=== PATIENT | female | born 1965 | race Caucasian/White ===

== ENCOUNTER → 2016-09-21 | Outpatient (CLI) | payer BC ==
[~2016-09-21] MED LIST: ACET-1256 PO; CLR10 PO; FURO-85 PO; LEVO125T4 PO; LEVO137T3 PO; MISCCAP80 PO; RANI150T2 PO
--- NOTE | 2016-09-21 14:23 | MAMMOGRAPHY REPORT ---
BILATERAL DIGITAL SCREENING MAMMOGRAM TOMOSYNTHESIS WITH CAD: 09/21/2016 CLINICAL HISTORY: Routine screening. Patient has no complaints. TECHNIQUE: Breast tomosynthesis in addition to standard 2D mammography was performed. Current study was also evaluated with a Computer Aided Detection (CAD) system. COMPARISON: Comparison is made to exams dated: 09/18/2015 mammogram, 09/10/2013 mammogram, 09/11/2014 ma mmogram, 06/08/2012 mammogram, 05/31/2011 mammogram, and 05/25/2010 mammogram - [facility] enter. BREAST COMPOSITION: There are scattered areas of fibroglandular density in both breasts. FINDINGS: No suspicious masses, calcifications, or areas of architectural distortion are noted in e ither breast. There has been no significant interval change compared to prior exams. There are stab le post surgical changes from bilateral reduction mammoplasty. Bilateral benign-appearing calcifica tions are not significantly changed, including grouped calcifications in the left upper outer quadra nt which are stable dating back to at least the 2011 exam. IMPRESSION: ACR BI-RADS CATEGORY 2: BENIGN There is no mammographic evidence of malignancy. A 1 year screening mammogram is recommended. The p atient will receive written notification of the results. Approximately 10% of breast cancers are not detected with mammography. A negative mammographic repor t should not delay biopsy if a clinically suggestive mass is present. Virgen Colby M.D. /:09/21/2016 09:54:02 Stabber: Jon SETH(Jessica)(Mariana), [facility] letter sent: Normal 1/2 BI-RADS Code: ACR BI-RADS Category 2: Benign
== END | disposition home or self-care (01) ==
LOC: C.MAMM 07:03
PROVIDERS: ATTEND Obstetrics & Gynecology
DX: Z12.31 Encounter for screening mammogram for malignant neoplasm of breast (principal)

== ENCOUNTER → 2016-10-12 | Outpatient (CLI) | payer BC ==
[2016-10-12 09:31] LABS: HEMATOCRIT 41.6 % (37-47); MEAN CELL VOLUME 85.1 fL (80-100); MEAN CORPUSCULAR HEMOGLOBIN 26.8 pg (25-34); MEAN CORPUSCULAR HGB CONC 31.5 g/dl (32-36); MEAN PLATELET VOLUME 9.3 fL (7.4-10.4); PLATELET COUNT 273 K/uL (130-400); RED BLOOD COUNT 4.89 M/uL (4.2-5.4)
[2016-10-12 09:55] LABS: ALB/GLOB RATIO 0.8 (0.9-2); ALKALINE PHOSPHATASE 99 U/L (45-117); ALT/SGPT 37 U/L (12-78); AST/SGOT 15 U/L (15-37); BLOOD UREA NITROGEN 27 mg/dl (7-18); BUN/CREATININE RATIO 19.2 (10-20); CALCIUM 8.1 mg/dl (8.5-10.1); CARBON DIOXIDE 27 mmol/L (21-32); CHLORIDE 106 mmol/L (98-107); CHOLESTEROL 192 mg/dl (0-200); CHOLESTEROL/HDL RATIO 3.9; GLUCOSE 86 mg/dl (70-99); HDL CHOLESTEROL 49 mg/dl; LDL CHOLESTEROL CALCULATED 115 mg/dl; POTASSIUM 4.4 mmol/L (3.5-5.1); SODIUM 143 mmol/L (136-145); TRIGLYCERIDES 140 mg/dl (0-150); VERY LOW DENSITY LIPOPROT CALC 28 mg/dl
[2016-10-12 09:56] LABS: URINE PROTIEN/CREAT RATIO 0.1 (0-0.2); URINE TOTAL PROTEIN 15.1 mg/dl (0-11.9)
[2016-10-12 10:16] LABS: URINE APPEARANCE CLOUDY (CLEAR); URINE BILIRUBIN NEG (NEG); URINE COLOR YELLOW; URINE EPITHELIAL CELL AUTO >30 /lpf (0-5); URINE NITRITE NEG (NEG); URINE PH 5.5 (4.5-7.5); UROBILINOGEN NEG (NEG)
[2016-10-12 10:26] LABS: MANUAL MICROSCOPIC REQUIRED? NO; REVIEW REQ? NO
== END | disposition home or self-care (01) ==
LOC: C.LAB1850 07:11
PROVIDERS: ATTEND Internal Medicine Nephrology
DX: C73 Malignant neoplasm of thyroid gland (principal); E89.0 Postprocedural hypothyroidism; I12.9 Hypertensive chronic kidney disease with stage 1 through stage 4 chronic kidney disease, or unspecified chronic kidney disease; N18.3 Chronic kidney disease, stage 3 (moderate); E55.9 Vitamin D deficiency, unspecified; R31.29 Other microscopic hematuria; E78.5 Hyperlipidemia, unspecified

== ENCOUNTER 2016-10-22 11:48 | Emergency (ER) | payer BC ==
[~2016-10-22] VITALS: Ht 157.5 cm; Wt 124.9 kg
[~2016-10-22 11:48] MED LIST changes: -LEVO125T4 PO; -RANI150T2 PO
[2016-10-22 11:51] VITALS: TEMP 36.4; Ht 157.5 cm; Wt 124.9 kg
[2016-10-22] MEDS ORDERED: RANI150T2 PO (11:59)
[2016-10-22] MEDS ORDERED: LEVO125T4 PO (11:59)
--- NOTE | 2016-10-22 12:44 | EMERGENCY ROOM VISIT NOTE ---
History Report prepared by Naomi: Moises Miner Under the Supervision of: Dr. Masoud Mercedes M.D. First contact with patient: 12:33 Chief Complaint: LEG PAIN,LEG INJURY Stated Complaint: LEFT LEG PAIN History of Present Illness The patient is a 51 year old female who presents to the Emergency Room with complaints of persistent left leg pain for the past ten days. The pain is localized to her upper inner left thigh. The pain worsened yesterday to the point that the patient is having difficulty walking and ambulating secondary to pain. Her right leg is asymptomatic. The patient denies any fevers, chills, lightheadedness, dizziness, chest pain, shortness of breath, weakness, or numbness. The patient has a history of bilateral lower extremity lymphedema. She denies any history of blood clots. She is not a smoker. She is not on control or other hormonal therapies. The patient has a history of kidney and thyroid cancer. She is s/p left nephrectomy and thyroidectomy. She now takes Levothyroxine. She denies any history of diabetes. Source of History: patient Onset: ten days Position: leg (left) Timing: other (persistent) Modifying Factors (Worsening): other (standing or walking) Associated Symptoms: No SOB, No chest pain, No chills, No fevers, No numbness, No weakness Review of Systems See HPI for pertinent positives & negatives. A total of 10 systems reviewed and were otherwise negative.+ Past Medical & Surgical Medical Problems: (1) Diverticulitis (2) nephrectomy (3) renal jun carcinoma Old medical records were reviewed. Nurse's notes were reviewed and I agree with. Family History Cancer Gallbladder disease Hypertension Lung disease Social History Smoking Status: Never Smoker Alcohol Use: none Drug Use: none Marital Status: single Housing Status: lives with family Occupation Status: employed Current/Historical Medications Scheduled Levothyroxine Sodium (Levothyroxine Sodium), 125 MCG PO QAM Probiotic Product (Probiotic), 1 CAP PO DAILY Ranitidine HCl (Ranitidine HCl), 150 MG PO BID Scheduled PRN Acetaminophen (Tylenol), 1,000 MG PO Loratadine (Claritin), 10 MG PO DAILY PRN for ALLERGIC REACTION Allergies Coded Allergies: Metronidazole (Unverified Allergy, Unknown, vomiting, 10/22/16) Physical Exam Vital Signs Date Time Temp Pulse Resp B/P Pulse Ox O2 Delivery O2 Flow Rate FiO2 10/22/16 15:47 83 18 134/97 100 10/22/16 13:52 78 16 129/78 97 Room Air 10/22/16 11:51 36.4 97 20 124/78 95 Room Air Physical Exam General: Non ill-appearing female in no acute distress, breathing comfortably on room air. Normal speech HEENT: Normal cephalic atraumatic. Pupils are equal round and reactive to light. Extraocular movements are intact. Oropharynx is pink with moist mucous membranes. No swelling of the mouth lips or tongue. Neck: Supple with a midline trachea. No meningeal signs or stiffness, no JVD or bruits. No Stridor. Chest: Clear to auscultation bilaterally. No wheezes or rhonchi. No increased work of breathing. Heart: regular rate and rhythm. Abdomen: Soft nontender, nondistended without rebound guarding or rigidity. Extremities: Trace bilateral edema, normal distal pulses, minimal calf tenderness bilaterally. He has mild tenderness left medial proximal thigh. No redness or warmth. Full range of motion. No lower extremity neurovascular compromise Spine/Back. Non tender to palpation. No CVA tenderness Skin: Good turgor without rashes. Neurologic exam: Cranial nerves two through 12 are intact. Motor and sensation are intact and symmetrical throughout. Medical Decision & Procedures ER Provider Diagnostic Interpretation: US radiology results as stated below per my review and radiologist interpretation: LEFT LOWER EXTREMITY VENOUS DOPPLER CLINICAL HISTORY: Leg swelling/pain COMPARISON STUDY: Bilateral lower extremity venous Doppler March 03 2015 TECHNIQUE: Sonography of the deep venous system of the left lower extremity was performed. Compression and augmentation were evaluated. FINDINGS: The left common femoral, superficial femoral and popliteal veins were compressible. Augmentation was normal. Flow was shown within the deep calf vessels. IMPRESSION: No evidence of deep venous thrombus within the left lower extremity. Electronically signed by: Iban Daigle M.D. 10/22/2016 1:43 PM Dictated Date/Time: 10/22/2016 1:40 PM Laboratory Results 10/22/16 13:17 Red Blood Count 4.76, Mean Corpuscular Volume 83.4, Mean Corpuscular Hemoglobin 27.1, Mean Corpuscular Hemoglobin Concent 32.5, Mean Platelet Volume 9.5, Neutrophils (%) (Auto) 76.5, Lymphocytes (%) (Auto) 14.9, Monocytes (%) (Auto) 6.7, Eosinophils (%) (Auto) 1.2, Basophils (%) (Auto) 0.1, Neutrophils # (Auto) 5.55, Lymphocytes # (Auto) 1.08, Monocytes # (Auto) 0.49, Eosinophils # (Auto) 0.09, Basophils # (Auto) 0.01 10/22/16 13:17 Test 10/22/16 13:17 White Blood Count 7.26 K/uL (4.8-10.8) Red Blood Count 4.76 M/uL (4.2-5.4) Hemoglobin 12.9 g/dL (12.0-16.0) Hematocrit 39.7 % (37-47) Mean Corpuscular Volume 83.4 fL (80-100) Mean Corpuscular Hemoglobin 27.1 pg (25-34) Mean Corpuscular Hemoglobin Concent 32.5 g/dl (32-36) Platelet Count 215 K/uL (130-400) Mean Platelet Volume 9.5 fL (7.4-10.4) Neutrophils (%) (Auto) 76.5 % Lymphocytes (%) (Auto) 14.9 % Monocytes (%) (Auto) 6.7 % Eosinophils (%) (Auto) 1.2 % Basophils (%) (Auto) 0.1 % Neutrophils # (Auto) 5.55 K/uL (1.4-6.5) Lymphocytes # (Auto) 1.08 K/uL (1.2-3.4) Monocytes # (Auto) 0.49 K/uL (0.11-0.59) Eosinophils # (Auto) 0.09 K/uL (0-0.5) Basophils # (Auto) 0.01 K/uL (0-0.2) RDW Standard Deviation 49.7 fL (36.4-46.3) RDW Coefficient of Variation 16.4 % (11.5-14.5) Immature Granulocyte % (Auto) 0.6 % Immature Granulocyte # (Auto) 0.04 K/uL (0.00-0.02) Prothrombin Time 10.5 SECONDS (9.0-12.0) Prothromb Time International Ratio 1.0 (0.9-1.1) Activated Partial Thromboplast Time 28.3 SECONDS (21.0-31.0) Partial Thromboplastin Ratio 1.1 Anion Gap 11.0 mmol/L (3-11) Est Creatinine Clear Calc Drug Dose 70.1 ml/min Estimated GFR () 60.6 Estimated GFR (Non- 52.3 BUN/Creatinine Ratio 17.3 (10-20) Calcium Level 8.0 mg/dl (8.5-10.1) Laboratory studies as stated above per my review. ED Course 1248: Past medical records reviewed. The patient was evaluated in room C12b, and a complete history and physical examination were performed. 1510: Reassessed the patient. She is doing better. She verbalized understanding and agreement of the treatment plan. The patient is ready for discharge. Medical Decision Differential diagnosis includes DVT, musculoskeletal, infection, electrolyte or metabolic abnormality. This patient comes in as described above. she's been having pain in her left leg .she recalls no injury. she has normal distal pulse exam and no as evidence of arterial compromise. she has a normal neurologic exam and no evidence of neurologic compromise or compartment syndrome. IV access established blood testing was obtained as well as ultrasound. she's had no evidence of DVT or hematoma. she's had no significant electrolyte or metabolic abnormality. she iha nothing to suggest significant anemia or sepsis. I think this is more likely musculoskeletal. She is going to use Tylenol for pain as she only has one kidney but do not exceed the [id number] recommended dosages. Return if: increasing pain, numbness or weakness, worsening of symptoms, any new problems concerns. She was happy the plan and was discharged to home. Follow- up with her doctor this week for recheck. Impression Primary Impression: Leg pain, left Scribe Attestation The scribe's documentation has been prepared under my direction and personally reviewed by me in its entirety. I confirm that the note above accurately reflects all work, treatment, procedures, and medical decision making performed by me. Departure Information Dispostion Home / Self-Care Referrals RV. Gonzales MD (PCP) Forms HOME CARE DOCUMENTATION FORM, IMPORTANT VISIT INFORMATION Patient Instructions My [facility] Additional Instructions Rest. Drink plenty of fluids. May use acetaminophen/Tylenol a maximum of 650 mg every 6 hours. Return if: Increasing pain, worsening of symptoms, numbness or weakness, any new problems or concerns. Follow up with your doctor Monday or Monday for recheck if not better.
[2016-10-22 13:28] LABS: BASO % 0.1 %; BASO ABS # 0.01 K/uL (0-0.2); COMPLETE YES; EOS % 1.2 %; HEMATOCRIT 39.7 % (37-47); IG% 0.6 %; LYMPH % 14.9 %; LYMPH ABS # 1.08 K/uL (1.2-3.4); MEAN CELL VOLUME 83.4 fL (80-100); MEAN CORPUSCULAR HEMOGLOBIN 27.1 pg (25-34); MEAN CORPUSCULAR HGB CONC 32.5 g/dl (32-36); MEAN PLATELET VOLUME 9.5 fL (7.4-10.4); MONO % 6.7 %; NEUT % 76.5 %; PLATELET COUNT 215 K/uL (130-400); RED BLOOD COUNT 4.76 M/uL (4.2-5.4); WHITE BLOOD COUNT 7.26 K/uL (4.8-10.8)
[2016-10-22 13:44] LABS: PARTIAL THROMBOPLASTIN RATIO 1.1; PROTHROMBIN TIME (PATIENT) 10.5 SECONDS (9.0-12.0)
--- NOTE | 2016-10-22 13:44 | DIAGNOSTIC IMAGING REPORT ---
LEFT LOWER EXTREMITY VENOUS DOPPLER CLINICAL HISTORY: Leg swelling/pain COMPARISON STUDY: Bilateral lower extremity venous Doppler March 03 2015 TECHNIQUE: Sonography of the deep venous system of the left lower extremity was performed. Compression and augmentation were evaluated. FINDINGS: The left common femoral, superficial femoral and popliteal veins were compressible. Augmentation was normal. Flow was shown within the deep calf vessels. IMPRESSION: No evidence of deep venous thrombus within the left lower extremity. Electronically signed by: Iban Daigle M.D. 10/22/2016 1:43 PM Dictated Date/Time: 10/22/2016 1:40 PM
[2016-10-22 13:45] LABS: BUN/CREATININE RATIO 17.3 (10-20); CREATININE 1.2 mg/dl (0.60-1.20); POTASSIUM 3.7 mmol/L (3.5-5.1)
[2016-10-22 15:47] VITALS: BP 134/97; PULSE 83; O2SAT 100
== END 2016-10-22 15:49 | disposition home or self-care (01) ==
LOC: C.EDB 11:49 → C.EDC 15:49
DX: M79.605 Pain in left leg (principal); Z85.528 Personal history of other malignant neoplasm of kidney; Z85.850 Personal history of malignant neoplasm of thyroid; Z90.5 Acquired absence of kidney; E89.0 Postprocedural hypothyroidism; Z79.899 Other long term (current) drug therapy

== ENCOUNTER → 2016-11-10 | Outpatient (CLI) | payer BC ==
[~2016-11-10] MED LIST changes: -FURO-85 PO; +LEVO125T4 PO; -LEVO137T3 PO; +RANI150T2 PO
--- NOTE | 2016-11-10 10:48 | DIAGNOSTIC IMAGING REPORT ---
LEFT HIP UNILATERAL 2 VIEWS CLINICAL HISTORY: M79.605 Left leg [id number] pain COMPARISON: None. DISCUSSION: Moderate to rather significant degenerative narrowing left hip joint space. No evidence for acetabular protrusion. No evidence for fracture. Incidental note is made of what appears to be a large calcified uterine fibroid midline pelvis. There is no evidence for soft tissue swelling. IMPRESSION: Moderate to significant degenerative change left hip. No acute bony abnormality. Probable calcified uterine fibroid central soft tissue pelvis Electronically signed by: Antony Tripp M.D. 11/10/2016 10:46 AM Dictated Date/Time: 11/10/2016 10:46 AM
== END | disposition home or self-care (01) ==
LOC: C.RAD1850 10:25
PROVIDERS: ATTEND Internal Medicine
DX: M79.605 Pain in left leg (principal)

== ENCOUNTER → 2017-03-23 | Outpatient (CLI) | payer BC ==
[2017-03-23 09:30] LABS: MANUAL MICROSCOPIC REQUIRED? YES; URINE APPEARANCE SL CLOUDY (CLEAR); URINE BILIRUBIN NEG (NEG); URINE COLOR YELLOW; URINE NITRITE NEG (NEG); URINE PH 5.5 (4.5-7.5); URINE SPECIFIC GRAVITY <= 1.005 (1.000-1.030); UROBILINOGEN NEG (NEG)
[2017-03-23 09:31] LABS: REVIEW REQ? NO
[2017-03-23 09:32] LABS: HEMATOCRIT 40.7 % (37-47); MEAN CELL VOLUME 84.3 fL (80-100); MEAN CORPUSCULAR HEMOGLOBIN 26.7 pg (25-34); MEAN CORPUSCULAR HGB CONC 31.7 g/dl (32-36); MEAN PLATELET VOLUME 8.9 fL (7.4-10.4); PLATELET COUNT 261 K/uL (130-400); RED BLOOD COUNT 4.83 M/uL (4.2-5.4); WHITE BLOOD COUNT 6.28 K/uL (4.8-10.8)
[2017-03-23 10:00] LABS: URINE TOTAL PROTEIN < 5.0 mg/dl (0-11.9)
[2017-03-23 10:02] LABS: BLOOD UREA NITROGEN 21 mg/dl (7-18); BUN/CREATININE RATIO 14.7 (10-20); CALCIUM 8.2 mg/dl (8.5-10.1); CARBON DIOXIDE 27 mmol/L (21-32); CHLORIDE 106 mmol/L (98-107); GLUCOSE 93 mg/dl (70-99); POTASSIUM 3.7 mmol/L (3.5-5.1); SODIUM 141 mmol/L (136-145)
[2017-03-23 10:06] LABS: PHOSPHORUS 3.4 mg/dl (2.5-4.9)
[2017-03-23 10:10] LABS: URINE RBC 0-4 /hpf (0-4)
[2017-03-23 10:11] LABS: URINE BACTERIA 1+ (NEG)
[2017-03-24 14:58] LABS: THYROGLOBULIN 1.3 NG/ML (2.8-40.9)
== END | disposition home or self-care (01) ==
LOC: C.LAB1850 08:38
PROVIDERS: ATTEND Internal Medicine Nephrology
DX: C73 Malignant neoplasm of thyroid gland (principal); E89.0 Postprocedural hypothyroidism; I10 Essential (primary) hypertension; N18.3 Chronic kidney disease, stage 3 (moderate); E55.9 Vitamin D deficiency, unspecified

== ENCOUNTER → 2017-07-18 | Outpatient (CLI) | payer BC ==
[~2017-07-18] MED LIST changes: +GADAVIST IV PRN; -LEVO125T4 PO; +LEVO125T5 PO
--- NOTE | 2017-07-18 08:01 | DIAGNOSTIC IMAGING REPORT ---
CHEST 2 VIEWS ROUTINE HISTORY: Renal cell carcinoma. Follow-up. COMPARISON: Chest 06/03/2016. FINDINGS: Small hiatus hernia is again noted. No pneumothorax. No pleural effusions. The heart is stable in size. The lungs are clear. IMPRESSION: No significant change compared to the prior study. No acute process. Electronically signed by: Holland Veras M.D. 07/18/2017 8:00 AM Dictated Date/Time: 07/18/2017 7:58 AM
--- NOTE | 2017-07-18 08:18 | DIAGNOSTIC IMAGING REPORT ---
MRI KIDNEYS WITHOUT AND WITH CONTRAST CLINICAL HISTORY: C64.9 RENAL CELL CARCINOMA. HISTORY OF LEFT NEPHRECTOMY. TECHNIQUE: Imaging was performed prior to and following IV contrast injection. (12 cc intravenous Gadavist goes ( COMPARISON STUDY: CT scan dated 04/04/2014 FINDINGS: Imaging was performed in the axial and coronal planes. There are no suspicious areas of marrow replacement. The left kidney is surgically absent. There is a 38 mm right renal cyst. Also evident is a 10 mm right renal cyst. No solid right renal lesions are visualized. There is a 15 mm T2 bright mass within the right lobe of the liver. This is only visualized on several sequences as this area is not included on axial images. This likely represents a hepatic hemangioma. This lesion remains unchanged in size from prior CT scan performed in June 2013 There is an incompletely characterized 1 cm lesion within the spleen. The spleen is mildly enlarged measuring 13 cm. No adrenal masses are visualized. There is no ductal dilatation. The gallbladder appears normal as visualized. No pathologically enlarged lymph nodes are visualized. There is a 55 mm uterine mass likely representing a fibroid IMPRESSION: 1. Surgically absent left kidney 2. Right renal cysts. No solid renal masses are visualized 3. Stable 15 mm mass within the right lobe of the liver, likely representing a hepatic hemangioma 4. Mild splenomegaly. Nonspecific 1 cm splenic nodule 5. No evidence of pathologic adenopathy 6. 55 mm uterine mass consistent with a fibroid 7. Hiatal hernia with a para esophageal component Electronically signed by: Nahid Phillips M.D. 07/18/2017 8:16 AM Dictated Date/Time: 07/18/2017 8:04 AM
== END | disposition home or self-care (01) ==
LOC: C.MRI 06:29
PROVIDERS: ATTEND Urology
DX: C64.9 Malignant neoplasm of unspecified kidney, except renal pelvis (principal); Z90.5 Acquired absence of kidney; N28.1 Cyst of kidney, acquired; K76.89 Other specified diseases of liver; D73.9 Disease of spleen, unspecified; N85.8 Other specified noninflammatory disorders of uterus; K44.9 Diaphragmatic hernia without obstruction or gangrene

== ENCOUNTER 2019-06-16 08:48 | Inpatient (IN) ==
[2019-06-16] MEDS ORDERED: SODIUM CHLORIDE 0.9% 1000ML 500 ML IV ONE (09:12)
[2019-06-16 09:23] LABS: Appearance Urine Cloudy (Clear); Bacteria Urine Automated Negative (Negative); Bilirubin Urine Negative (Negative); Blood Urine 2+ (Negative); Color Urine Yellow; Epithelial Cell Urine Auto >30 /lpf (0-5); Glucose Urine UA Negative (Negative); Ketones Urine Negative (Negative); Leukocyte Esterase Urine Trace (Negative); Nitrite Urine Negative (Negative); Protein Urine 2+ (Negative); Specific Gravity Urine 1.024 (1.000-1.030); Urobilinogen Urine Negative (Negative)
--- NOTE | 2019-06-16 09:25 | Emergency Department Note ---
History of Present Illness General Chief complaint: Abdominal Pain Stated complaint: LEFT AB PAIN, DIVERTICULITIS AND ONE KIDNEY Time Seen by Provider: 06/16/19 09:01 History of Present Illness Maximum Pain Intensity: 4 This is a 53-year-old female that presents to the emergency department via private vehicle with complaints of "left-sided abdominal pain, history of diverticulitis and previous nephrectomy". The patient states that this past while at work around 11 AM she began with atraumatic left-sided abdominal/flank pain. This radiates she notes throughout the entire left side of the abdomen both in the left upper and left lower quadrants. She notes that a week before that she had a cough and some congestion and took Tessalon Perles but this has resolved. She states that the abdominal pain continues and she has been taking Tylenol. She also notes diaphoresis with this. She notes associated nausea but no vomiting. No chest pain today, shortness of breath, f shanice, diarrhea, constipation or dysuria. Pain is worse with pressing on the area and movements. She notes that she had a nephrectomy on the left side in 2010 secondary to a tumor that was removed here as well as 2 colonoscopies. Home Medications Home Medications Medication Instructions Recorded Confirmed Type acetaminophen [Tylenol] 1 - 2 cap PO Q4 PRN 09/21/18 06/16/19 History levothyroxine 137 mcg PO QAM 09/21/18 06/16/19 History loratadine [Claritin] 10 mg PO DAILY PRN 09/21/18 06/16/19 History omeprazole magnesium [Prilosec OTC] 20 mg PO DAILY 06/16/19 06/16/19 History Allergies Allergy/AdvReac Type Severity Reaction Status Date / Time metronidazole Allergy Unknown vomiting Verified 05/28/19 15:25 Past Med/Surg History Medical History Renal cell carcinoma Papillary carcinoma of thyroid Hypothyroid Anemia Cancer of kidney 2010--left kidney--sx Chronic kidney disease follows with Dr. Gauthier Diverticular disease GERD (gastroesophageal reflux disease) Hiatal hernia History of thyroidectomy, total 2012 x2--thyroid cancer Hypothyroidism Sleep apnea cpap Thyroid cancer 2012--sx x2, radioactive iodine pill x2 Surgical History H/O left nephrectomy History of bilateral breast reduction surgery History of biopsy left kidney--malignant History of colonoscopy History of dilatation and curettage History of endometrial ablation History of root canal procedure History of unilateral nephrectomy 2011 left History of wisdom tooth extraction Status post biopsy of thyroid gland malignant Family History Grandmother (Maternal) Family history of pseudocholinesterase deficiency "allergy to anectine--paralyzed for a day or so" Social History Preferred Language: Malay Communication Ability: Effective Order Builder Required: No Beliefs That Will Affect Care: None Current Living Situation: Alone Feels Safe at Home: Yes Smoking Status: Never smoker Second Hand Exposure: Yes (parents smoked) ; Hx Alcohol Use: No Hx Substance Use: No Review of Systems A total of 10 systems reviewed and were otherwise negative Physical Exam Vital Signs Vital Signs - 24 hr 06/16/19 08:51 06/16/19 10:25 Temperature 36.5 C Temperature Source Oral Sepsis Recent Fever Within 48 Hours No Sepsis New/Unexplained Change in Mental Status No Sepsis Action Taken by Nursing No Action Required Pulse Rate 102 H Pulse Rate [Finger] 88 Pulse Rhythm [Finger] Regular Pulse Strength [Finger] Normal Respiratory Rate 20 Blood Pressure 154/88 H Blood Pressure [Left Arm] 140/84 Blood Pressure Mean 110 Blood Pressure Mean [Left Arm] 102 Blood Pressure Position [Left Arm] Lying Pulse Oximetry 96 98 Oxygen Delivery Method Room Air Room Air VITAL SIGNS - Vital signs and nursing notes were reviewed. Hypertensive, slightly tachycardic, otherwise stable. GENERAL -53-year-old female appearing her stated age who is in no acute distress. Communicates well with provider and answers questions appropriately. SKIN - Without rashes. No meningeal or petechial rash. HEAD - NC/AT. EYES - PERRL with EOMI bilaterally. Sclera anicteric. EARS - No deformities of external structures noted on gross examination b ilaterally. NOSE - Midline and without cyanosis. No epistaxis or purulent drainage noted. MOUTH/OROPHARYNX - Without perioral cyanosis. LUNGS - Chest wall symmetric without accessory muscle use, intercostals retractions, or central cyanosis. Normal vesicular breath sounds CTA B/L. No wheezes, rales, or rhonchi appreciated. CARDIAC - RRR with S1/S2. No murmur, rubs, or gallops appreciated. ABDOMEN - Abdominal contour normal without pulsations or visible masses. BS normoactive all four quadrants. There is left-sided abdominal tenderness diffusely in the left upper, left side and left lower quadrant. Abdomen is soft and nonrigid. No palpable masses, hepatosplenomegaly, or ascites noted. EXTREMITIES - No clubbing or peripheral cyanosis. No pretibial edema present. +5/5 strength noted in UE/LE bilaterally. NEUROLOGIC - Cranial nerves II through XII grossly intact. PSYCH - A&O, and cooperates fully with examiner. Pt is very pleasant and interacts well with examiner. Course Administered Medications Potassium Chloride/Dextrose/Sod Cl (D5nss + 20meq Kcl) 20 meq in 1,000 mls @ 100 mls/hr IV .Q10H RIZWANA Stop: 07/16/19 12:59 Last Admin: 06/16/19 13:37 Dose: 100 mls/hr Documented by: [id number] Piperacillin Sod/Tazobactam (Sod 4.5 gm/ Dextrose) 120 mls @ 30 mls/hr IV Q8H RIZWANA; Protocol Stop: 06/18/19 15:59 Last Admin: 06/16/19 16:19 Dose: 30 mls/hr Documented by: [id number] Discontinued Medications Sodium Chloride (Nss 1000ml) 500 mls @ 999 mls/hr IV .Q31M ONE Stop: 06/16/19 09:42 Last Infusion: 06/16/19 11:13 Dose: 0 mls/hr Documented by: [id number] Admin: 06/16/19 09:46 Dose: 999 mls/hr Documented by: [id number] Piperacillin Sod/Tazobactam Sod (Zosyn) 4.5 gm in 120 mls @ 240 mls/hr IV NOW ONE Stop: 06/16/19 11:09 Last Infusion: 06/16/19 12:00 Dose: 0 mls/hr Documented by: [id number] Admin: 06/16/19 11:14 Dose: 240 mls/hr Documented by: [id number] Medical Decision Making Laboratory Data Result diagrams: 06/16/19 09:25 06/16/19 09:25 Lab Results 06/16/19 06/16/19 06/16/19 Range/Units 09:00 09:25 09:25 WBC 11.50 H (4.8-10.8) K/uL RBC 4.58 (4.2-5.4) M/uL Hgb 11.9 L (12.0-16.0) g/dL Hct 37.9 (37-47) % MCV 82.8 (80-100) fL MCH 26.0 (25-34) pg MCHC 31.4 L (32-36) g/dL RDW Std Deviation 55.2 H (36.4-46.3) fL RDW Coeff of Juanpablo 18.1 H (11.5-14.5) % Plt Count 280 (130-400) K/uL MPV 9.5 (7.4-10.4) fL Immature Gran % (Auto) 0.5 % Neut % (Auto) 85.4 % Lymph % (Auto) 6.1 % Spalding % (Auto) 8.0 % Eos % (Auto) 0.0 % Baso % (Auto) 0.0 % Immature Gran # (Auto) 0.06 H (0.00-0.02) K/uL Neut # (Auto) 9.82 H (1.4-6.5) K/uL Lymph # (Auto) 0.70 L (1.2-3.4) K/uL Spalding # (Auto) 0.92 H (0.11-0.59) K/uL Eos # (Auto) 0.00 (0-0.5) K/uL Baso # (Auto) 0.00 (0-0.2) K/uL Sodium 139 (136-145) mmol/L Potassium 3.7 (3.5-5.1) mmol/L Chloride 107 (98-107) mmol/L Carbon Dioxide 25 (21-32) mmol/L Anion Gap 7.0 (3-11) BUN 26 H (7-18) mg/dl Creatinine 1.38 H (0.6-1.2) mg/dl Est Cr Clr Drug Dosing 60.2 ml/min Est GFR ( Amer) 50.5 Est GFR (Non-Af Amer) 43.5 BUN/Creatinine Ratio 18.7 (10-20) Glucose 103 H (70-99) mg/dl Calcium 8.3 L (8.5-10.1) mg/dl Magnesium 2.3 (1.8-2.4) mg/dl Total Bilirubin 0.4 (0.2-1) mg/dl AST 20 (15-37) U/L ALT 45 (12-78) U/L Alkaline Phosphatase 108 (45-117) U/L Total Creatine Kinase 230 H (26-192) U/L Total Protein 7.5 (6.4-8.2) gm/dl Albumin 2.7 L (3.4-5.0) gm/dl Globulin 4.8 H (2.5-4.0) gm/dl Albumin/Globulin Ratio 0.6 L (0.9-2) Lipase 169 (73-393) U/L Urine Color Yellow Urine Appearance Cloudy A (Clear) Urine pH 5.0 (4.5-7.5) Ur Specific Skippers 1.024 (1.000-1.030) Urine Protein 2+ H (Negative) Urine Glucose (UA) Negative (Negative) Urine Ketones Negative (Negative) Urine Blood 2+ H (Negative) Urine Nitrite Negative (Negative) Urine Bilirubin Negative (Negative) Urine Urobilinogen Negative (Negative) Ur Leukocyte Esterase Trace H (Negative) Urine WBC (Auto) 5-10 H (0-5) /hpf Urine RBC (Auto) 0-4 (0-4) /hpf U Hyaline Cast (Auto) 1-5 (0-5) /lpf U Epithel Cells (Auto) >30 H (0-5) /lpf Urine Bacteria (Auto) Negative (Negative) Urine Yeast Budding A (None Prsent) Imaging Data Radiologist's Impression: CT SCAN OF THE ABDOMEN AND PELVIS WITHOUT CONTRAST CLINICAL HISTORY: Left-sided abdominal pain. History of left nephrectomy. COMPARISON STUDY: Ultrasound study dated 03/26/2019, CT scan dated 04/04/2014 TECHNIQUE: CT scan of the abdomen and pelvis was performed from the lung bases to the proximal femurs. Images are reviewed in the axial, sagittal, and coronal planes. IV contrast was not administered for this examination. A dose lowering technique was utilized adhering to the principles of ALARA. CT DOSE: 1718.80 mGy.cm FINDINGS: Lower chest: There are mild basilar atelectatic changes. There is trace pericardial fluid. There is a hiatal hernia. Liver: There is mild hepatic steatosis. Gallbladder: Unremarkable. Spleen: Mild splenomegaly (13.2 cm. Pancreas: Unremarkable. Adrenal glands: Unremarkable. Kidneys: Left kidney is surgically absent. There is a 4.5 cm left renal cyst. Bowel: There are no transition zones indicate bowel obstruction. There is focal bowel wall thickening and infiltration of the pericolonic fat the level of the proximal descending colon. There are multiple extraluminal gas bubbles within the surrounding fat. The findings are indicative of a perforated diverticulitis. The appendix is unremarkable in appearance. Peritoneum: There are extraluminal gas bubbles surrounding the proximal descending colon. There is no free air within the upper abdomen. There is no ascites. Vasculature: There is no evidence of abdominal aortic dilatation. Adenopathy: None. Pelvic viscera: There is a 5.4 cm rim calcified fibroid. Skeletal structures: No destructive osseous lesions are seen. IMPRESSION: 1. Perforated diverticulitis of the proximal descending colon 2. No evidence of bowel obstruction 3. Surgically absent left kidney 4. Calcified uterine fibroid Electronically signed by: Nahid Phillips M.D. 06/16/2019 10:28 AM MDM Narrative Patient was seen and evaluated as above in room a 4. Review was performed of nursing notes and vital signs. After obtaining a thorough history and physical examination the above work up was performed. She presents to us today with left-sided abdominal pain. She is nontoxic on examination. Vital signs are stable. Patient has a history of diverticulitis. She also has a history of nephrectomy and at this time only has one kidney. With that history, decision was made to obtain a CT scan of the abdomen and pelvis without contrast. Labs were also drawn. She declined pain medication. There is leukocytosis of 11.5. No significant anemia. Creatinine is at baseline at 1.38. Total CK 230. Lipase within normal limits. Urinalysis reveals some blood but no true evidence or convincing evidence of a UTI. CT scan results as above and there is perfor ated diverticulitis of the proximal descending colon. This clinically correlates. I discussed this with the general surgeon, Dr. Campos. At this time we agreed upon initiating medical management with IV antibiotics and he would evaluate the patient for further evaluation and management. Given the patient's documented metronidazole allergy, Zosyn was chosen. I then discussed the case with the hospitalist. Please refer to further documentation regarding her stay. In the evaluation and treatment of this patient, the following differential diagnoses were considered: ASC, CT, Pneumonia, GERD, Cholecystitis, Ascending Cholangitis, Cholydocholithiasis, Bowel Obstruction, PE, diverticulitis, perforation, UTI, pyelonephritis, amongst Others. Impression & Plan Perforated diverticulum of large intestine Discharge Plan Visit Data *Final* Discharge Date/Time: 06/16/19 12:21 Chief Complaint: Abdominal Pain Stated Complaint: LEFT AB PAIN, DIVERTICULITIS AND ONE KIDNEY ED Provider: Diego Velez ED Midlevel Provider: Uday Kumari Discharge Problem: Perforated diverticulum of large intestine Patient Disposition: Admitted As Inpatient Condition: Good Discharge Instructions Interventions: ED Discharge Assessment Last Done: 06/16/19 12:21
[2019-06-16 09:44] LABS: RBC Urine Automated 0-4 /hpf (0-4)
[2019-06-16 09:49] LABS: Hematocrit (blood only) 37.9 % (37-47); Hemoglobin 11.9 g/dL (12.0-16.0); Immature Granulocytes # (auto) 0.06 K/uL (0.00-0.02); Immature Granulocytes % (auto) 0.5 %; Lymphocytes % (auto) 6.1 %; Mean Corpuscular Hgb Conc 31.4 g/dL (32-36); Mean Corpuscular Volume 82.8 fL (80-100); Mean Platelet Volume 9.5 fL (7.4-10.4); Monocytes # (auto) 0.92 K/uL (0.11-0.59); Neutrophils # (auto) 9.82 K/uL (1.4-6.5); Neutrophils % (auto) 85.4 %; Platelet Count 280 K/uL (130-400); RDW Coefficient of Variation 18.1 % (11.5-14.5); RDW Standard Deviation 55.2 fL (36.4-46.3); Red Blood Count 4.58 M/uL (4.2-5.4)
[2019-06-16 09:59] LABS: Albumin Level 2.7 gm/dl (3.4-5.0); BUN Creatinine Ratio 18.7 (10-20); Calcium 8.3 mg/dl (8.5-10.1); Creatinine Clr Calc Pharmacy 60.2 ml/min; Est GFR (African American) 50.5; Est GFR (Non-African American) 43.5; Magnesium 2.3 mg/dl (1.8-2.4); Potassium 3.7 mmol/L (3.5-5.1)
[2019-06-16 10:02] LABS: Albumin Globulin Ratio 0.6 (0.9-2); Bilirubin,Total 0.4 mg/dl (0.2-1); Globulin 4.8 gm/dl (2.5-4.0); Total Protein 7.5 gm/dl (6.4-8.2)
--- NOTE | 2019-06-16 10:30 | CT Scan Report ---
CT SCAN OF THE ABDOMEN AND PELVIS WITHOUT CONTRAST CLINICAL HISTORY: Left-sided abdominal pain. History of left nephrectomy. COMPARISON STUDY: Ultrasound study dated 03/26/2019, CT scan dated 04/04/2014 TECHNIQUE: CT scan of the abdomen and pelvis was performed from the lung bases to the proximal femurs . Images are reviewed in the axial, sagittal, and coronal planes. IV contrast was not administered fo r this examination. A dose lowering technique was utilized adhering to the principles of ALARA. CT DOSE: 1718.80 mGy.cm FINDINGS: Lower chest: There are mild basilar atelectatic changes. There is trace pericardial fluid. There is a hiatal hernia. Liver: There is mild hepatic steatosis. Gallbladder: Unremarkable. Spleen: Mild splenomegaly (13.2 cm. Pancreas: Unremarkable. Adrenal glands: Unremarkable. Kidneys: Left kidney is surgically absent. There is a 4.5 cm left renal cyst. Bowel: There are no transition zones indicate bowel obstruction. There is focal bowel wall thickening and infiltration of the pericolonic fat the level of the proximal descending colon. There are multip le extraluminal gas bubbles within the surrounding fat. The findings are indicative of a perforated d iverticulitis. The appendix is unremarkable in appearance. Peritoneum: There are extraluminal gas bubbles surrounding the proximal descending colon. There is no free air within the upper abdomen. There is no ascites. Vasculature: There is no evidence of abdominal aortic dilatation. Adenopathy: None. Pelvic viscera: There is a 5.4 cm rim calcified fibroid. Skeletal structures: No destructive osseous lesions are seen. IMPRESSION: 1. Perforated diverticulitis of the proximal descending colon 2. No evidence of bowel obstruction 3. Surgically absent left kidney 4. Calcified uterine fibroid Electronically signed by: Nahid Phillips M.D. 06/16/2019 10:28 AM
[2019-06-16] MEDS ORDERED: PIPERACILL/TAZOBAC CONSULT ACTIVE PRN (10:40)
[2019-06-16] MEDS ORDERED: PIPERACILLIN/TAZOBACTAM 4.5 GM/120 ML BAG IV ONE (10:40)
--- NOTE | 2019-06-16 11:35 | History & Physical Report ---
Date of Service June 16, 2019 Assessment & Plan (1) Perforated diverticulum of large intestine: Noted on CTAP Lipase WNL ED spoke with Dr. Campos who feels likely conservative management and will see shortly Flagyl allergy, will use zosyn WBC elevated (2) Abnormal urine: Trace leuk est, neg nitrites Budding yeast No sx of UTI and hx of chronic inguinal yeast infections, likely contaminent, but will await cx given asx (3) Renal cell carcinoma: s/p L nephrectomy in 2010 Baseline CKD with cr 1.4, cr on admission 1.3 Monitor (4) Papillary carcinoma of thyroid: s/p thyroidectomy and STEVENS x2 (5) Hypothyroid: continue home meds (6) Swelling of both lower extremities: Lymphedema Compression stocking for management as outpt (7) SAMEER (obstructive sleep apnea): CPAP compliant, did not bring with her Will provide (8) GERD (gastroesophageal reflux disease): Changed to prilosec earlier this week, continue (9) DVT prophylaxis: SCDs given possible need for OR History of Present Illness Primary Care Provider: Nitesh Singh MD 53 y/o F c/o abd pain. Pt states she started to have L lateral abd pain on . She had been feeling unwell the week prior with an intense cough and congestion and thought initially it was related to her coughing since it moved into her ribs. Later in the day she started to have chills. She went home from work and took tylenol and her chills resolved, her pain improved some. She went to bed early. She woke on Monday with sweats, so she took the day off from work. She noted that her urine was very dark when it is usually pretty light colored. Her pain returned late Monday and continued into yesterday. She states that she was very distended yesterday and this is somewhat improved now. It was no better today so she came to the ED. Pt denies fever, n/v/c/d, LE pain or swelling. Pt did have mild SOB and chest pain about 2 weeks ago. She had a CXR that was negative. She was then started on tesslon pearls once she developed a cough and all of this has since resolved. No return of these sx with abd pain. Pt has hx of diverticulitis and this feels similar. Pt states she still has abd pain, but this is better than SUGAR DRIER. Pt has had no urinary pain, frequency, urgency. She had noted the dark urine as noted above. Pt does have hx of yeast infections. She has no sx similar to this now. She does get yeast in her inguinal skin folds regularly. Allergies Allergy/AdvReac Type Severity Reaction Status Date / Time metronidazole Allergy Unknown vomiting Verified 05/28/19 15:25 Home Medications Home Medications Medication Instructions Recorded Confirmed Type acetaminophen [Tylenol] 1 - 2 cap PO Q4 PRN 09/21/18 06/16/19 History levothyroxine 137 mcg PO QAM 09/21/18 06/16/19 History loratadine [Claritin] 10 mg PO DAILY PRN 09/21/18 06/16/19 History omeprazole magnesium [Prilosec OTC] 20 mg PO DAILY 06/16/19 06/16/19 History Past Med/Surg History Medical History Renal cell carcinoma Papillary carcinoma of thyroid Hypothyroid Anemia Cancer of kidney 2010--left kidney--sx Chronic kidney disease follows with Dr. Gauthier Diverticular disease GERD (gastroesophageal reflux disease) Hiatal hernia History of thyroidectomy, total 2012 x2--thyroid cancer Hypothyroidism Sleep apnea cpap Thyroid cancer 2012--sx x2, radioactive iodine pill x2 Surgical History H/O left nephrectomy History of bilateral breast reduction surgery History of biopsy left kidney--malignant History of colonoscopy History of dilatation and curettage History of endometrial ablation History of root canal procedure History of unilateral nephrectomy 2011 left History of wisdom tooth extraction Status post biopsy of thyroid gland malignant Family History Grandmother (Maternal) Family history of pseudocholinesterase deficiency "allergy to anectine--paralyzed for a day or so" Social History Preferred Language: Egyptian Communication Ability: Effective Jamb Cutter Required: No Beliefs That Will Affect Care: None Current Living Situation: Alone Feels Safe at Home: Yes Smoking Status: Never smoker Second Hand Exposure: Yes (parents smoked) ; Hx Alcohol Use: No Hx Substance Use: No Review of Systems Review of Systems: Pertinent positives and negatives reviewed in HPI--all others negative Physical Exam Constitutional: WD/WN, vitals as above + obese Eyes: normal visual schwarz by confrontation and + anicteric sclerae Neck: normal visual inspection and trachea midline Respiratory: normal respiratory effort, lungs clear to auscultation Cardiovascular: Rate/Rhythm: regular rate and regular rhythm Gastrointestinal (Abdomen): Inspection/Auscultation: + abdomen distended Percussion/Palpation: + abdomen tender (mild, L sided) and abdomen soft Musculoskeletal: Head/Neck/Chest: normocephalic and head atraumatic trace b/l LE edema, peripheral pulses intact Skin: no rashes, warm and dry Neurologic: awake; not confused Speech / Cognition: normal speech Psychiatric: A+Ox3, euthymic affect Results & Data Vital Signs (Past 12 Hours) Vital Signs Temp Pulse Pulse Resp BP BP Pulse Ox 06/16/19 10:25 88 140/84 98 06/16/19 08:51 36.5 C 102 H 20 154/88 H 96 Diagnostic Findings CTAP: diverticulitis with perf of proximal descending colon Code Status & VTE Plan Code Status Full code, although pt states no prolonged mechanical life support, feeding tubes, etc VTE Prophylaxis Plan VTE Prophylaxis will be ordered: Yes PG Care Time/CCT Total # of Minutes Spent Total Time Spent with Patient: Total time spent is greater than 50% in coordination of care (as documented) at patient's floor/unit and/or counseling patient:
[2019-06-16] MEDS ORDERED: MoRPHine SULFATE 2 MG/ML CARP IV PRN (12:33)
[2019-06-16] MEDS ORDERED: ACETAMINOPHEN PO PRN (12:33)
[2019-06-16] MEDS ORDERED: ONDANSETRON INJ 2 MG/ML 2 ML VIAL IV PRN (12:33)
[2019-06-16] MEDS ORDERED: ACETAMINOPHEN 325 MG TAB PO PRN (12:33)
[2019-06-16] MEDS ORDERED: LORATADINE 10 MG TAB PO PRN (12:33)
[2019-06-16] MEDS ORDERED: MAGNESIUM HYDROXIDE SUSP 30 ML UDC PO PRN (12:33)
--- NOTE | 2019-06-16 12:35 | Surgery Consultation ---
Date of Consultation June 16, 2019 Assessment & Plan (1) Perforated diverticulum of large intestine: The perforation appears to be contained and she is nontoxic-appearing. We will admit her and keep her n.p.o. and start IV antibiotics with fluid resuscitation and symptom control. We will do serial evaluations. We discussed that if she deteriorates we are certainly not out of the tabor for needing to perform an exploratory laparotomy. For now we will follow her closely with conservative management. She is at risk for developing an abscess in the left retroperitoneum for which we might need drainage at some point. She will likely need a repeat CAT scan in the next 48 to 72 hours. We will follow along closely. History of Present Illness History of Present Illness This is a 53-year-old white female who is had some issues ever since this past . She started with a bad cold and cough. She then developed left-sided abdominal pain which has steadily worsened. Today it was bad enough that she presented to the emergency room. CT scan shows a perforated diverticulitis of the descending colon with relative containment of the perforation. There is no abscess or gross free air. She does have a history of this in the past but her last episode was in 2010. She has had prior colonoscopies the last one being in 2010. Currently she is comfortable. She does have a history of left-sided nep hrectomy for kidney cancer. She also has a history of thyroid cancer. She is not receiving treatment for either cancer currently. They are both presumed to be curative Allergies Allergy/AdvReac Type Severity Reaction Status Date / Time metronidazole Allergy Unknown vomiting Verified 05/28/19 15:25 Home Medications Home Medications Medication Instructions Recorded Confirmed Type acetaminophen [Tylenol] 1 - 2 cap PO Q4 PRN 09/21/18 06/16/19 History levothyroxine 137 mcg PO QAM 09/21/18 06/16/19 History loratadine [Claritin] 10 mg PO DAILY PRN 09/21/18 06/16/19 History omeprazole magnesium [Prilosec OTC] 20 mg PO DAILY 06/16/19 06/16/19 History Patient History Medical History Renal cell carcinoma Papillary carcinoma of thyroid Hypothyroid Anemia Cancer of kidney 2010--left kidney--sx Chronic kidney disease follows with Dr. Gauthier Diverticular disease GERD (gastroesophageal reflux disease) Hiatal hernia History of thyroidectomy, total 2013 x2--thyroid cancer Hypothyroidism Sleep apnea cpap Thyroid cancer 2012--sx x2, radioactive iodine pill x2 Surgical History H/O left nephrectomy History of bilateral breast reduction surgery History of biopsy left kidney--malignant History of colonoscopy History of dilatation and curettage History of endometrial ablation History of root canal procedure History of unilateral nephrectomy 2011 left History of wisdom tooth extraction Status post biopsy of thyroid gland malignant Family History Grandmother (Maternal) Family history of pseudocholinesterase deficiency "allergy to anectine--paralyzed for a day or so" Social History Preferred Language: Kittitian Communication 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 Answering questions appropriately. Currently denies pain. Eyes: PERRL, conjunctivae normal, anicteric sclerae EOM intact bilaterally ENMT: external ear and nose normal, oropharynx normal Ears: no hearing impairment Neck: trachea midline, no thyromegaly Respiratory: normal respiratory effort; no respiratory distress and does not use accessory muscles Cardiovascular: Rate/Rhythm: regular rate and regular rhythm Gastrointestinal (Abdomen): Soft, obese. Positive left-sided diffuse tendern ess to palpation with localized peritonitis. There is guarding. Skin: no rashes, warm and dry Psychiatric: Orientation: alert, oriented x 3 and cooperative Results & Data Vital Signs (Past 12 Hours) Vital Signs Temp Pulse Pulse Resp BP BP Pulse Ox 06/16/19 11:55 92 H 20 151/113 H 97 06/16/19 10:25 88 140/84 98 06/16/19 08:51 36.5 C 102 H 20 154/88 H 96 PG Care Time/CCT Total # of Minutes Spent Total Time Spent with Patient: Total time spent is greater than 50% in coordination of care (as documented) at patient's floor/unit and/or counseling patient:
[2019-06-16] MEDS: D5NSS + 20MEQ KCL 20 MEQ/1,000 ML BAG IV SCH ×2 (13:37→23:00)
[2019-06-16] MEDS: PIPERACILLIN/TAZOBACTAM 4.5 GM in DEXTROSE 5% 100 ML IV SCH ×2 (16:19→23:01)
[2019-06-17] MEDS: LEVOTHYROXINE SODIUM 137 MCG TABLET PO SCH (05:27)
[2019-06-17 05:30] LABS: Basophils # (auto) 0.01 K/uL (0-0.2); Basophils % (auto) 0.1 %; Eosinophils # (auto) 0.01 K/uL (0-0.5); Eosinophils % (auto) 0.1 %; Hematocrit (blood only) 35.4 % (37-47); Hemoglobin 11.1 g/dL (12.0-16.0); Immature Granulocytes # (auto) 0.03 K/uL (0.00-0.02); Immature Granulocytes % (auto) 0.4 %; Lymphocytes # (auto) 0.74 K/uL (1.2-3.4); Lymphocytes % (auto) 9.9 %; Mean Corpuscular Hemoglobin 25.9 pg (25-34); Mean Corpuscular Hgb Conc 31.4 g/dL (32-36); Mean Corpuscular Volume 82.7 fL (80-100); Mean Platelet Volume 9.3 fL (7.4-10.4); Monocytes # (auto) 0.68 K/uL (0.11-0.59); Monocytes % (auto) 9.1 %; Neutrophils # (auto) 6.04 K/uL (1.4-6.5); Neutrophils % (auto) 80.4 %; Platelet Count 267 K/uL (130-400); RDW Coefficient of Variation 18.4 % (11.5-14.5); RDW Standard Deviation 56.2 fL (36.4-46.3); Red Blood Count 4.28 M/uL (4.2-5.4); White Blood Count 7.51 K/uL (4.8-10.8)
[2019-06-17 05:54] LABS: BUN Creatinine Ratio 13.2 (10-20); Calcium 7.5 mg/dl (8.5-10.1); Creatinine Clr Calc Pharmacy 58.7 ml/min; Est GFR (African American) 48.3; Est GFR (Non-African American) 41.7; Potassium 4.1 mmol/L (3.5-5.1)
[2019-06-17] MEDS: PIPERACILLIN/TAZOBACTAM 4.5 GM in DEXTROSE 5% 100 ML IV SCH ×3 (08:28→23:37)
[2019-06-17] MEDS: PANTOprazole 40 MG TAB PO SCH (08:28)
--- NOTE | 2019-06-17 08:30 | Surgery Progress Note ---
Date of Service June 17, 2019 Assessment & Plan (1) Perforated diverticulum of large intestine: WBC improved, afebrile cont IV abx as above. feeling better. wbc decreased will start clear liquids. Subjective feeling better, scant flatus, no recent BM, no fevers Physical Exam Gastrointestinal (Abdomen): Percussion/Palpation: + abdomen tender (minimal LLQ) and abdomen soft Results & Data Vital Signs (Past 12 Hours) Vital Signs Temp Pulse Pulse Resp BP Pulse Ox 06/16/19 23:09 74 16 97 06/16/19 22:51 36.6 C 77 16 114/68 96 PG Care Time/CCT Total # of Minutes Spent Total Time Spent with Patient: Total time spent is greater than 50% in coordination of care (as documented) at patient's floor/unit and/or counseling patient:
[2019-06-17] MEDS: D5NSS + 20MEQ KCL 20 MEQ/1,000 ML BAG IV SCH ×2 (08:31→18:21)
--- NOTE | 2019-06-17 08:55 | Family Medicine Progress Note ---
Date of Service June 17, 2019 Assessment & Plan (1) Perforated diverticulum of large intestine: #Perforated diverticulum of large intestine: Patient with a history of URI symptoms, subsequently developed abdominal pain. Assume the pain was related to her URI. Pain progressively worsened throughout the weekend and she presented to [facility] emergency department. She endorses fever, chills, abdominal pain in the left upper and lower quadrant as well as darker urine. CT abdomen pelvis was performed demonstrating a perforated diverticulitis. Surgery was consulted and elected for conservative management. -WBC:11.50->7.51 -Surgery consulted following the recommendations -Conservative management for now with IV antibiotics -Follow closely with serial exams -Consider advancing diet later today -Patient has allergy to Flagyl, continue Zosyn #Abnormal urine: Trace leuk est, neg nitrites, Budding yeast present. No sx of UTI and hx of chronic inguinal yeast infections, likely contaminent, but will await cx given asx. -Follow-up urine culture #Renal cell carcinoma: S/p L nephrectomy in 2010. Baseline CKD with cr 1.4, cr on admission 1.3 -Trend daily BMP #Papillary carcinoma of thyroid: S/p thyroidectomy and STEVENS x2 #Hypothyroid: Continue home meds #Swelling of both lower extremities: Lymphedema -Compression stocking for management as outpt #SAMEER (obstructive sleep apnea): CPAP compliant, did not bring with her. -CPAP ordered, has been compliant with use #GERD (gastroesophageal reflux disease): Changed to prilosec earlier this week, continue FENa: N.p.o. with MIVF, hope to advance to clears later today Code Status: Full code DVT PPX: SCDs, anticoagulation contraindicated in case of the need for emergent surgery PT/OT: Not warranted Dispo: Pending resolution of abdominal symptoms, pain control, transition to p.o. antibiotics Ottoniel Posey MD PGY 2, FCM This chart was completed utilizing [email or web address] voice recognition software. Grammatical errors, random word insertions, pronoun errors, and in complete sentences are an occasional consequence of the system. Any questions or concerns about the content, text, or information contained within the body of this dictation should be addressed directly to the physician for clarification. Supervising Physician Co-Signing Physician Notes Patient seen and examined with Dr. Posey. I agree with their exam findings, review of systems, assessment and plan. I have personally reviewed the lab work and imaging from today. Patient without much pain, tolerating clears, had a BM that was formed, no fevers. She is feeling better overall. Discussed with general surgery, appreciate their input. Exam: lungs CTA bilaterally, no distress heart regular, no murmurs, abdomen soft, obese, minimal TTP in LLQ, + BS - Acute diverticulitis, microperforation WBC normal, no fever, less pain, tolerating clears continue IV antibiotics today, possible transition to PO on 06/18 and possible d/c home Subjective Patient sitting up in bed this morning in no acute distress. She reports feeling much better, and improving subjectively the symptoms that she presented with. She reports she is no longer having significant abdominal pain, and is able to ambulate without abdominal pain. Otherwise she is n.p.o. currently ho pefully plan to advance to clears later today, she had a bowel movement this morning, voiding on her own, sleeping well. No acute concerns are present, all questions answered. Physical Exam Physical Exam: General: Obese female sitting up in bed in no acute distress HEENT: Normocephalic atraumatic Neck: Normal to visual inspection, did not appreciate significant JVD, trachea midline Cardiac: Regular rate and rhythm, I did not appreciate significant murmurs rubs or gallops, no acute calf tenderness, negative pedal edema Respiratory: Clear to auscultation bilaterally with symmetrical chest rise I did not appreciate significant wheezes, rales, rhonchi GI: Bowel sounds present, tenderness to palpation in the left lower and left upper quadrant patient reports subjectively improved, nondistended, negative peritoneal signs MSK: Moves all extremities Skin: Warm, dry, well-perfused Neuro: Alert and oriented x4 Psych: Calm, cooperative Results & Data Vital Signs (Past 12 Hours) Vital Signs Temp Pulse Pulse Resp BP Pulse Ox 06/16/19 23:09 74 16 97 06/16/19 22:51 36.6 C 77 16 114/68 96 Laboratory Results 06/17/19 06/17/19 06/16/19 Range/Units 04:58 04:58 09:25 WBC 7.51 (4.8-10.8) K/uL RBC 4.28 (4.2-5.4) M/uL Hgb 11.1 L (12.0-16.0) g/dL Hct 35.4 L (37-47) % MCV 82.7 (80-100) fL MCH 25.9 (25-34) pg MCHC 31.4 L (32-36) g/dL RDW Std Deviation 56.2 H (36.4-46.3) fL RDW Coeff of Juanpablo 18.4 H (11.5-14.5) % Plt Count 267 (130-400) K/uL MPV 9.3 (7.4-10.4) fL Immature Gran % (Auto) 0.4 % Neut % (Auto) 80.4 % Lymph % (Auto) 9.9 % Wise % (Auto) 9.1 % Eos % (Auto) 0.1 % Baso % (Auto) 0.1 % Immature Gran # (Auto) 0.03 H (0.00-0.02) K/uL Neut # (Auto) 6.04 (1.4-6.5) K/uL Lymph # (Auto) 0.74 L (1.2-3.4) K/uL Wise # (Auto) 0.68 H (0.11-0.59) K/uL Eos # (Auto) 0.01 (0-0.5) K/uL Baso # (Auto) 0.01 (0-0.2) K/uL Sodium 142 139 (136-145) mmol/L Potassium 4.1 3.7 (3.5-5.1) mmol/L Chloride 111 H 107 (98-107) mmol/L Carbon Dioxide 24 25 (21-32) mmol/L Anion Gap 7.0 7.0 (3-11) BUN 19 H 26 H (7-18) mg/dl Creatinine 1.43 H 1.38 H (0.6-1.2) mg/dl Est Cr Clr Drug Dosing 58.7 60.2 ml/min Est GFR ( Amer) 48.3 50.5 Est GFR (Non-Af Amer) 41.7 43.5 BUN/Creatinine Ratio 13.2 18.7 (10-20) Glucose 117 H 103 H (70-99) mg/dl Calcium 7.5 L 8.3 L (8.5-10.1) mg/dl Magnesium 2.3 (1.8-2.4) mg/dl Total Bilirubin 0.4 (0.2-1) mg/dl AST 20 (15-37) U/L ALT 45 (12-78) U/L Alkaline Phosphatase 108 (45-117) U/L Total Creatine Kinase 230 H (26-192) U/L Total Protein 7.5 (6.4-8.2) gm/dl Albumin 2.7 L (3.4-5.0) gm/dl Globulin 4.8 H (2.5-4.0) gm/dl Albumin/Globulin Ratio 0.6 L (0.9-2) Lipase 169 (73-393) U/L Urine Color Urine Appearance (Clear) Urine pH (4.5-7.5) Ur Specific [place] (1.000-1.030) Urine Protein (Negative) Urine Glucose (UA) (Negative) Urine Ketones (Negative) Urine Blood (Negative) Urine Nitrite (Negative) Urine Bilirubin (Negative) Urine Urobilinogen (Negative) Ur Leukocyte Esterase (Negative) Urine WBC (Auto) (0-5) /hpf Urine RBC (Auto) (0-4) /hpf U Hyaline Cast (Auto) (0-5) /lpf U Epithel Cells (Auto) (0-5) /lpf Urine Bacteria (Auto) (Negative) Urine Yeast (None Prsent) 06/16/19 06/16/19 Range/Units 09:25 09:00 WBC 11.50 H (4.8-10.8) K/uL RBC 4.58 (4.2-5.4) M/uL Hgb 11.9 L (12.0-16.0) g/dL Hct 37.9 (37-47) % MCV 82.8 (80-100) fL MCH 26.0 (25-34) pg MCHC 31.4 L (32-36) g/dL RDW Std Deviation 55.2 H (36.4-46.3) fL RDW Coeff of Juanpablo 18.1 H (11.5-14.5) % Plt Count 280 (130-400) K/uL MPV 9.5 (7.4-10.4) fL Immature Gran % (Auto) 0.5 % Neut % (Auto) 85.4 % Lymph % (Auto) 6.1 % Wise % (Auto) 8.0 % Eos % (Auto) 0.0 % Baso % (Auto) 0.0 % Immature Gran # (Auto) 0.06 H (0.00-0.02) K/uL Neut # (Auto) 9.82 H (1.4-6.5) K/uL Lymph # (Auto) 0.70 L (1.2-3.4) K/uL Wise # (Auto) 0.92 H (0.11-0.59) K/uL Eos # (Auto) 0.00 (0-0.5) K/uL Baso # (Auto) 0.00 (0-0.2) K/uL Sodium (136-145) mmol/L Potassium (3.5-5.1) mmol/L Chloride (98-107) mmol/L Carbon Dioxide (21-32) mmol/L Anion Gap (3-11) BUN (7-18) mg/dl Creatinine (0.6-1.2) mg/dl Est Cr Clr Drug Dosing ml/min Est GFR ( Amer) Est GFR (Non-Af Amer) BUN/Creatinine Ratio (10-20) Glucose (70-99) mg/dl Calcium (8.5-10.1) mg/dl Magnesium (1.8-2.4) mg/dl Total Bilirubin (0.2-1) mg/dl AST (15-37) U/L ALT (12-78) U/L Alkaline Phosphatase (45-117) U/L Total Creatine Kinase (26-192) U/L Total Protein (6.4-8.2) gm/dl Albumin (3.4-5.0) gm/dl Globulin (2.5-4.0) gm/dl Albumin/Globulin Ratio (0.9-2) Lipase (73-393) U/L Urine Color Yellow Urine Appearance Cloudy A (Clear) Urine pH 5.0 (4.5-7.5) Ur Specific [place] 1.024 (1.000-1.030) Urine Protein 2+ H (Negative) Urine Glucose (UA) Negative (Negative) Urine Ketones Negative (Negative) Urine Blood 2+ H (Negative) Urine Nitrite Negative (Negative) Urine Bilirubin Negative (Negative) Urine Urobilinogen Negative (Negative) Ur Leukocyte Esterase Trace H (Negative) Urine WBC (Auto) 5-10 H (0-5) /hpf Urine RBC (Auto) 0-4 (0-4) /hpf U Hyaline Cast (Auto) 1-5 (0-5) /lpf U Epithel Cells (Auto) >30 H (0-5) /lpf Urine Bacteria (Auto) Negative (Negative) Urine Yeast Budding A (None Prsent) Medications Administered Current Inpatient Medications Acetaminophen (Tylenol) 650 mg PO Q4H PRN PRN Reason: pain/fever Stop: 07/16/19 12:32 Potassium Chloride/Dextrose/Sod Cl (D5nss + 20meq Kcl) 20 meq in 1,000 mls @ 100 mls/hr IV .Q10H [facility] Stop: 07/16/19 12:59 Last Admin: 06/17/19 08:31 Dose: 100 mls/hr Documented by: Piperacillin Sod/Tazobactam (Sod 4.5 gm/ Dextrose) 120 mls @ 30 mls/hr IV Q8H [facility]; Protocol Stop: 06/18/19 15:59 Last Admin: 06/17/19 08:28 Dose: 30 mls/hr Documented by: Levothyroxine S[facility] S[facility]: 07/17/19 06:29 Last Admin: 06/17/19 05:27 Dose: 137 mcg Documented by: Loratadine (Claritin) 10 mg PO DAILY PRN PRN Reason: Allergy Symptoms Stop: 07/16/19 12:32 Magnesium Hydroxide (Milk Of Magnesia) 30 ml PO Q6H PRN PRN Reason: Constipation Stop: 07/16/19 12:32 Miscellaneous Information (Consult) 1 ea N/A UD PRN PRN Reason: Consult Stop: 07/16/19 10:39 Morphine Sulfate (Morphine Sulfate) 0.5 mg IV Q4H PRN PRN Reason: Pain Stop: 06/30/19 12:32 Ondansetron HCl (Zofran) 4 mg IV Q6H PRN PRN Reason: Nausea Stop: 07/16/19 12:32 Pantoprazole Sodium (Protonix) 40 mg PO DAILY [facility] Stop: 07/17/19 08:59 Last Admin: 06/17/19 08:28 Dose: 40 mg Documented by: PG Care Time/CCT Total # of Minutes Spent Total Time Spent with Patient: Total time spent is greater than 50% in coordination of care (as documented) at patient's floor/unit and/or counseling patient: Resident Activity Tracking Resident Involvement: Resident Care Provided Care Provided: Adult [facility] Medicine
[2019-06-18] MEDS: D5NSS + 20MEQ KCL 20 MEQ/1,000 ML BAG IV SCH (03:45)
[2019-06-18] MEDS: LEVOTHYROXINE SODIUM 137 MCG TABLET PO SCH (05:57)
--- NOTE | 2019-06-18 08:14 | Surgery Progress Note ---
Date of Service June 18, 2019 Assessment & Plan (1) Perforated diverticulum of large intestine: Hospital Day #2 with perforated diverticulitis Will follow up on AM labs to evaluate WBC count. Patient has been afebrile Continue IV abx Her pain is minimal and patient has tolerated clear liquids thus far. She had a BM yesterday Will discuss advancing her diet slowly later today pending labs and how she fairs this AM as above. doing well. minimal pain. wbc normal. afebrile. would like to go home discussed with primary team. ok for d/c. instructions given stay on low residue diet f/u in 2 weeks. Subjective Patient with an uneventful night overnight. Is happy that her urine output is picking up. She has tolerated clear liquids yesterday without nausea/vomiting. States she passed a BM yesterday AM and is starting to feel more "rumblings". Overall her pain is very minimal. Physical Exam Physical Exam: awake/alert/sitting up in chair Constitutional: well developed and well nourished; no acute distress Gastrointestinal (Abdomen): Percussion/Palpation: abdomen soft; abdomen nontender Results & Data Vital Signs (Past 12 Hours) Vital Signs Temp Pulse Pulse Resp BP Pulse Ox 06/18/19 07:07 36.5 C 67 16 136/84 98 06/17/19 23:33 36.5 C 59 L 18 107/66 99 06/17/19 23:32 78 16 99 PG Care Time/CCT Total # of Minutes Spent Total Time Spent with Patient: Total time spent is greater than 50% in coordination of care (as documented) at patient's floor/unit and/or counseling patient:
[2019-06-18] MEDS: PIPERACILLIN/TAZOBACTAM 4.5 GM in DEXTROSE 5% 100 ML IV SCH (08:22)
[2019-06-18] MEDS: PANTOprazole 40 MG TAB PO SCH (08:22)
[2019-06-18 09:51] LABS: Basophils # (auto) 0.01 K/uL (0-0.2); Basophils % (auto) 0.1 %; Eosinophils # (auto) 0.02 K/uL (0-0.5); Eosinophils % (auto) 0.2 %; Hematocrit (blood only) 36.9 % (37-47); Hemoglobin 11.4 g/dL (12.0-16.0); Immature Granulocytes # (auto) 0.05 K/uL (0.00-0.02); Immature Granulocytes % (auto) 0.6 %; Lymphocytes # (auto) 0.81 K/uL (1.2-3.4); Lymphocytes % (auto) 9.4 %; Mean Corpuscular Hgb Conc 30.9 g/dL (32-36); Mean Corpuscular Volume 84.1 fL (80-100); Mean Platelet Volume 9.1 fL (7.4-10.4); Monocytes # (auto) 0.26 K/uL (0.11-0.59); Neutrophils # (auto) 7.43 K/uL (1.4-6.5); Neutrophils % (auto) 86.7 %; Platelet Count 293 K/uL (130-400); RDW Coefficient of Variation 18.6 % (11.5-14.5); RDW Standard Deviation 57.8 fL (36.4-46.3); Red Blood Count 4.39 M/uL (4.2-5.4); White Blood Count 8.58 K/uL (4.8-10.8)
[2019-06-18 10:20] LABS: BUN Creatinine Ratio 9.5 (10-20); Calcium 7.6 mg/dl (8.5-10.1); Creatinine Clr Calc Pharmacy 55.6 ml/min; Est GFR (African American) 45.3; Est GFR (Non-African American) 39.1; Potassium 3.9 mmol/L (3.5-5.1)
--- NOTE | 2019-06-18 11:01 | Discharge Summary ---
Date of Service June 18, 2019 Admission HPI Per Admitting Provider 53 y/o F c/o abd pain. Pt states she started to have L lateral abd pain on . She had been feeling unwell the week prior with an intense cough and congestion and thought initially it was related to her coughing since it moved into her ribs. Later in the day she started to have chills. She went home from work and took tylenol and her chills resolved, her pain improved some. She went to bed early. She woke on Monday with sweats, so she took the day off from work. She noted that her urine was very dark when it is usually pretty light colored. Her pain returned late Monday and continued into yesterday. She states that she was very distended yesterday and this is somewhat improved now. It was no better today so she came to the ED. Pt denies fever, n/v/c/d, LE pain or swelling. Pt did have mild SOB and chest pain about 2 weeks ago. She had a CXR that was negative. She was then started on tesslon pearls once she developed a cough and all of this has since resolved. No return of these sx with abd pain. Pt has hx of diverticulitis and this feels similar. Pt states she still has abd pain, but this is better than [employer]. Pt has had no urinary pain, frequency, urgency. She had noted the dark urine as noted above. Pt does have hx of yeast infections. She has no sx similar to this now. She does get yeast in her inguinal skin folds regularly. Admission Exam Per Admitting Provider Constitutional: WD/WN, vitals as above + obese Eyes: normal visual schwarz by confrontation and + anicteric sclerae Neck: normal visual inspection and trachea midline Respiratory: normal respiratory effort, lungs clear to auscultation Cardiovascular: Rate/Rhythm: regular rate and regular rhythm Gastrointestinal (Abdomen): Inspection/Auscultation: + abdomen distended Percussion/Palpation: + abdomen tender (mild, L sided) and abdomen soft Musculoskeletal: Head/Neck/Chest: normocephalic and head atraumatic trace b/l LE edema, peripheral pulses intact Skin: no rashes, warm and dry Neurologic: awake; not confused Speech / Cognition: normal speech Psychiatric: A+Ox3, euthymic affect Principal Diagnosis Perforated diverticulitis medically managed Discharge Exam General: Obese female sitting up in bed in no acute distress HEENT: Normocephalic atraumatic Neck: Normal to visual inspection, did not appreciate significant JVD, trachea midline Cardiac: Regular rate and rhythm, I did not appreciate significant murmurs rubs or gallops, no acute calf tenderness, negative pedal edema Respiratory: Clear to auscultation bilaterally with symmetrical chest rise I did not appreciate significant wheezes, rales, rhonchi GI: Bowel sounds present, nondistended, negative peritoneal signs MSK: Moves all extremities Skin: Warm, dry, well-perfused Neuro: Alert and oriented x4 Psych: Calm, cooperative Discharge Data Allergies Allergy/AdvReac Type Severity Reaction Status Date / Time metronidazole Allergy Unknown vomiting Verified 05/28/19 15:25 Consultations 06/16/19 10:59 ED Decision to Admit Stat 06/16/19 12:33 Consult General Surgery Routine Ordered Studies 06/16/19 09:48 CT abd pelvis wo con Stat Hospital Course (1) Perforated diverticulum of large intestine: #Perforated diverticulum of large intestine: Patient with a history of URI symptoms, subsequently developed abdominal pain. Assume the pain was related to her URI. Pain progressively worsened throughout the weekend and she presented to [facility] emergency department. She endorses fever, chills, abdominal pain in the left upper and lower quadrant as well as darker urine. CT abdomen pelvis was performed demonstrating a perforated diverticulitis. Surgery was consulted and elected for conservative management. Patient was started on IV Zosyn secondary to Flagyl allergy. She tolerated the medication well continued to improve from a clinical standpoint. She was advanced to clear liquids on hospital day 2, and tolerated a low residue diet on hospital day 3. She was subsequently discharged on Augmentin to complete a 7-day course for a total of 10 days of antibiotic therapy. -WBC:11.50->7.51->8.58 #Abnormal urine: Trace leuk est, neg nitrites, Budding yeast present. No sx of UTI and hx of chronic inguinal yeast infections, likely contaminent, but will await cx given asx. Urine culture negative treatment not indicated #Renal cell carcinoma: S/p L nephrectomy in 2010. Baseline CKD with cr 1.4, cr on admission 1.3. BMP was trended daily, creatinine 1.5 on discharge #Papillary carcinoma of thyroid: S/p thyroidectomy and STEVENS x2 #Hypothyroid: Continued home meds #Swelling of both lower extremities: Lymphedema -Compression stocking for management as outpt #SAMEER (obstructive sleep apnea): CPAP compliant, did not bring with her. -CPAP ordered, has been compliant with use #GERD (gastroesophageal reflux disease): Changed to prilosec earlier this week, continued FENa: Low residue diet Code Status: Full code DVT PPX: SCDs, anticoagulation contraindicated in case of the need for emergent surgery PT/OT: Not warranted Dispo: Home Ottoniel Posey MD PGY 2, FCM This chart was completed utilizing [employer] voice recognition software. Grammatical errors, random word insertions, pronoun errors, and in complete sentences are an occasional consequence of the system. Any questions or concerns about the content, text, or information contained within the body of this dictation should be addressed directly to the physician for clarification. Total Time Total Time Spent Total Time Spent (In Minutes): >30 Discharge Plan Discharge Items Patient Disposition: Home - Self-Care Reason For Visit: PERFERATED DIVERTICULITIS Discharge Diagnosis: Perforated diverticulitis medically managed Condition on Discharge: Good Activity: Resume your previous activity Non-emergency contact: Primary Care Provider Call non-emergency contact if: you have any medication questions, your symptoms worsen, your pain is not controlled and your temperature is above 101 Follow-up/Referrals: Nitesh Singh MD [Primary Care Provider] - Corby Campos DO [Surgeon] - (Call to make an appt in 1-2 weeks) Diet: Low Fiber and Low Fat Diet Comment: Low Residue Diet (See Below) Addtl Attending Provider Instructions: Care instructions: You were admitted to [facility] for treatment of perforated diverticulitis medically managed with IV antibiotics. Diverticulitis -To complete your treatment for diverticulitis you have been discharged on oral antibiotic -You have been prescribed Augmentin, the medication has been sent to your pharmacy [facility] either electronically or you have been provided a paper prescription. -Please take medication 2 times per day once in the morning and once approximately 12 hours later in the evening for a total of 7 days. -This medication has been known to cause upset stomach, to prevent this from occurring please take the medication with food. Additionally you may take a probiotic while on this medication or consume yogurt. -Please adhere to a low residue diet for at least 2 weeks which consists of: -Low fiber: -Include white bread and refined cereals and rice products. Avoid products made with whole grain flour, bran, seeds or nuts. -Choose canned or cooked fruits and vegetables. Someallowed raw or cooked fruits and vegetables may cause discomfort; omit these foods. Drink juices without pulp. -Eat tender, ground or well-cooked meats. Avoid all dried beans and peas. -Limit milk and milk products to 2 cups/day -Exclude prune juice from diet A discharge summary will be sent to your primary care physician to ensure continuity of care. Please bring this discharge summary with you to your next office appointment so that your provider can review it at that time. Follow-up appointments: - Keep all your follow-up appointments as already scheduled. If you cannot make an appointment, notify your provider. - Please call to request a follow-up appointment with your primary care physician within one week of discharge. Please let us know if you are unable to obtain an appointment Medications: - Your medication list has been reviewed and reconciled upon discharge to ensure accuracy and continuity of care. - You are provided with a list of all your current medications at this time. Please review this list closely and make note of any changes. - Please take all of your medications exactly as prescribed. - Tell your primary care provider if you cannot afford your medications. - Call your primary care provider if you are having any side effects or any other problems. - Call your primary care provider before taking any over the counter medications or supplements, including herbals and vitamins, because some of these may interact with your current medications and/or make your symptoms worse. Symptoms: Please call your primary care provider for symptoms including, but not limited to: fevers (temperatures greater than 100.4), chills, intractable nausea or vomiting, diarrhea, rash, shortness of breath, bleeding, pain, or if you experience any worsening of the symptoms that brought you to the hospital. For EMERGENCY and VERY SERIOUS health-related issues, such as chest pain, shortness of breath, or sudden onset of the symptoms that brought you to the hospital, you may need to call 911 or go directly to the Emergency Room It has been our privilege to take care of you during your hospital stay. And Above All Else Feel Better! Best Wishes, Ottoniel Posey MD PGY2 Resident, Family & Community Medicine [facility] FCM Residency at [facility] [place] [address], [address] : [address] [place] [address] Pending Studies at Discharge: No Stand-Alone Forms: Call Back Authorization, My [facility] Medications and DC Order Prescriptions: New amoxicillin-pot clavulanate [Augmentin] 875-125 mg tablet 1 tab PO Q12H 7 Days Qty: 14 RF: 0 Continued loratadine [Claritin] 10 mg Tablet 10 mg PO DAILY PRN (Reason: Allergy Symptoms) RF: 0 acetaminophen [Tylenol] 325 mg Capsule 1 - 2 cap PO Q4 PRN (Reason: pain/fever) RF: 0 levothyroxine 137 mcg Capsule 137 mcg PO QAM RF: 0 Prilosec OTC 20 mg Tablet,Delayed Release (Dr/Ec) 20 mg PO DAILY RF: 0 Discharge Orders: Discharge Order (Routine); Ordered 06/18/19 Ordered By: Ottoniel Zambrano/Other Patient Handouts: Diet Low Residue Admission Data Admit Date/Time: 06/16/19 11:28 Attending Provider: Chapo Ordonez Admit Provider: Kylie Loyd Primary Care Provider: Nitesh Singh V. Other Providers: Corby Campos ; Kylie Loyd Other Interventions: Discharge Summary Assessment (RN) Last Done: 06/18/19 13:35 DC Date/Time DO NOT enter until pt leaves facility: 06/18/19 14:33 Supervising Physician Co-Signing Physician Notes Patient seen and examined with Dr. Posey. I agree with their exam findings, review of systems, assessment and plan. I have personally reviewed the lab work and imaging from today. patient without pain, tolerating diet, WBC normal and afebrile discussed with nikky Buckley with discharge Exam: lungs CTA bilaterally, no distress heart regular, no murmurs, abdomen soft, obese, no TTP in LLQ, + BS - Acute diverticulitis, microperforation WBC normal, no fever, no pain, tolerating low residue diet treated with Zosyn IV while inpatient, convert to Augmentin to complete 10 day course follow up PCP and general surgery educated on low residue diet on discharge Resident Activity Tracking Resident Involvement: Resident Care Provided Care Provided: Adult Hospital Medicine
== END 2019-06-18 14:33 | disposition home or self-care (01) | DRG 392 ==
LOC: ED 08:48 → 3N 11:28 → SUATTDRO 11:28 → 3N 12:21

== ENCOUNTER 2020-11-22 04:31 | Inpatient (IN) ==
[2020-11-22] MEDS ORDERED: fentaNYL citrate 100 MCG/2 ML VIAL IV STA (04:43)
[2020-11-22] MEDS ORDERED: SODIUM CHLORIDE 0.9% 1000ML 1,000 ML IV ONE ×2 (04:43→06:12)
[2020-11-22] MEDS ORDERED: ONDANSETRON INJ 2 MG/ML 2 ML VIAL IV STA (04:43)
--- NOTE | 2020-11-22 04:47 | Emergency Department Note ---
Impression & Plan Sepsis, Sigmoid diverticulitis ED Provider Note Name: MAMADOU GOULD Age: 55 Sex: F Arrives Via: Ambulance Informant: Patient ED Provider: Akbar Ospina MD Chief Complaint: Abdominal pain Impression: Sepsis Sigmoid Diverticulitis Medical Decision Makin female with extensive PMH including multiple episodes diverticulitis arrives febrile, tachy, ill appearing with abdominal pain. Last episode diverticulitis 09/24 for which she was on abx though she notes this episode worse than previous. Labs obtained showing mild WBC elevation. Fluids, pain meds given. CT with sigmoid diverticulitis. Patient tachy and having rigors. Blood cultures and la ctate ordered along with zosyn for coverage. She does not look well enough for discharge at this time and will have hospitalist evaluate further. Abdominal exam is without peritonitis and no evidence perforation on ct. Did receive 30ml/kg IV fluids for sepsis management along with treatment of her renal insufficiency. Prior Medical Record and Triage/Nursing Notes reviewed by Me Additional history obtained from chart Differentials:diverticulitis, UTI, obstruction, appendicitis, mesenteric ischemia, aortic pathology, inflammatory bowel disease, renal colic, PUD, pancreatitis, biliary pathology, hernia, volvulus, constipation, as well as other pathologies. Vital Signs: reviewed and remarkable for fever, tachy Interventions: saline lock, nss bolus, zosyn iv Labs:Reviewed and remarkable for elevated wbc, cr Imaging:[facility] Radiologist interpretation reviewed by me: "CT ABDOMEN & PELVIS Without Contrast: Impression: There are changes of acute sigmoid colonic diverticulitis. No fluid collection Left kidney not seen in the left renal fossa No evidence of right hydronephrosis. There is 4.5 cm right renal cortical cyst. Moderate sized hiatus hernia there is 5.8 cm rim calcified uterine fibroid. Mild splenomegaly measuring up to 13.2 cm in diameter Radiologist: Amari Escamilla MD" Consults: Dr José Luis HERRERA Hospitalist Plan: Disposition:Hospitalization. Condition: Good History of Present Illness:55 yr old female arrives for evaluation of diffuse a bdominal pain. Patient notes 48 hours of worsening abdominal pain. Initially left sided and now throughout mid abdomen. Associated with decreased appetite, fatigue, body aches and chills. Similar though more intense than previous episodes of diverticulitis. Notes she had colonoscopy last week for evaluation. She was thought to have fistula on CT in September but is unsure if that is still the case. Tonight no medications prior to arrival. Movement makes worse, rest makes better. No fevers, syncope, nausea, vomiting, back pain, headache, cp, sob, urinary/bowel changes, leg swelling nor other symptoms. No inciting event. ROS: See above HPI for pertinent positives & negatives. A total of 10 systems reviewed and were otherwise negative. Past Medical History:See Below Past Surgical History:See Below Family History:See Below Social History:See Below Home Medications:See Below Allergies:See Below Vitals:Blood Pressure: 115/68, Pulse 120, RR 23, T 37.6C, O2 98% on RA Physical Exam: GENERAL: Patient is uncomfortable appearing and in moderate distress. Dehydrated appearing EYES: No scleral icterus, unremarkable pupils. ENT: Mucous membranes dry, no nasal congestion. NECK: No masses appreciated, nomeningismus, trachea is midline. RESPIRATORY: No dyspnea. Clear to auscultation and equal bilaterally. No wheeze, no rhonchi. CARDIOVASCULAR: Tachy.No murmurs, rubs, gallops appreciated. GASTROINTESTINAL: malorie-umbilical and LUQ/LLQ TTP though Abdomen soft without clear peritonitis.Bowel sounds positive.No masses appreciated. BACK: No midline tenderness, no CVA tenderness EXTREMITIES: Normal motion all extremities, no cyanosis, no edema. NEUROLOGIC: Alert and oriented, no acute motor or sensory deficits, no focal weakness, cranial nerves grossly intact. SKIN: No rash, no jaundice, no diaphoresis. PSYCH: Appropriate GCS: 15 ED Course: Times/Reassessments: improvement with fentanyl though still ill appearing Akbar Ospina MD Past Med/Surg History Medical History Abnormal CT of the abdomen 09/2020 "Question developing fistulous tract between the sigmoid colon and an adjacent loop of small bowel" Change in bowel habits Diverticulosis GERD (gastroesophageal reflux disease) Hiatal hernia Hx of renal cell cancer LEFT 2010, treated surgically Hx of thyroid cancer 2012 surgery/radiation Lymphedema of both lower extremities Morbid obesity with BMI of 45.0-49.9, adult Post-surgical hypothyroidism Rectal pain Sleep apnea Uterine fibroid Surgical History History of bilateral breast reduction surgery History of biopsy left kidney--malignant History of colonoscopy History of dilatation and curettage History of endometrial ablation History of esophagogastroduodenoscopy (EGD) History of left nephrectomy History of root canal procedure History of thyroidectomy, total 2013 x2--thyroid cancer History of wisdom tooth extraction Family History Grandmother (Maternal) Family history of pseudocholinesterase deficiency "allergy to anectine--paralyzed for a day or so" Diabetes Mother Cancer Obstructive sleep apnea Arthritis Father Cancer COPD (chronic obstructive pulmonary disease) Uncle Stroke Myocardial infarction Grandfather No problems noted. Grandfather (Maternal) Diabetes Parkinson disease Grandmother (Paternal) Stroke syndrome Hypertension Sister FH: migraine headache Aneurysm of ophthalmic artery Family/Other Multiple sclerosis cousin Grandfather (Paternal) Heart murmur Other Heart disease Malignant melanoma Prostate cancer Denies family history of Ovarian cancer Renal cell carcinoma Breast cancer Uterine cancer Social History Smoking Status: Never smoker Second Hand Exposure: Yes (as a child); Do You Dip or Chew Tobacco: No; Hx Alcohol Use: No Hx Substance Use: No Preferred Language: Sami Communication Ability: Effective Medical Parasitologist Required: No Beliefs That Will Affect Care: None marital status: Single Current Living Situation: Alone current occupational status: employed 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 Other Information That Helps Us Care for You: No Feels Safe at Home: Yes Safety Concerns: Feels Safe At This Time Assistive Devices: Cane Allergies Allergies Allergy/AdvReac Type Severity Reaction Status Date / Time metronidazole Allergy Unknown Vomiting Verified 11/12/20 11:14 Home Meds Home Medications Medication Instructions Recorded Confirmed acetaminophen 500 mg capsule 1,000 mg PO UD PRN cap 07/08/19 11/22/20 omeprazole magnesium 20 mg 20 mg PO QPM 08/09/19 11/22/20 tablet,delayed release Probiotic 3,000 mmu cells PO QDL 09/06/19 11/22/20 Systane (PF) 1 drp OPHTHALMIC (EYE) BID 11/02/20 11/22/20 thyroid (pork) [Alleman Thyroid] 90 mg PO QAM 11/02/20 11/22/20 Previous Rx's Medication Instructions Recorded torsemide 10 mg tablet 10 mg PO QAM #90 tab 09/10/20 thyroid (pork) 15 mg tablet 15 mg PO DAILY #90 tab 11/02/20 Results & Data (ED) Vital Signs Vital Signs - 24 hr 11/22/20 04:39 11/22/20 05:41 11/22/20 06:44 Temperature 37.6 C H Temperature Source Oral Pulse Rate 125 H 110 H 102 H Pulse Rate from SpO2 Sensor 111 H 105 H Respiratory Rate 18 20 23 Blood Pressure 107/72 139/72 115/68 Blood Pressure Mean 83 94 83 Pulse Oximetry 98 96 98 Oxygen Delivery Method Room Air Room Air Room Air Sepsis Recent Fever Within 48 Hours No Sepsis New/Unexplained Change in Mental Status N/A Sepsis Action Taken by Nursing No Action Required 11/22/20 07:00 11/22/20 07:01 Temperature Temperature Source Pulse Rate 106 H 108 H Pulse Rate from SpO2 Sensor 107 H 108 H Respiratory Rate 19 17 Blood Pressure 101/63 Blood Pressure Mean 75 Pulse Oximetry 96 96 Oxygen Delivery Method Sepsis Recent Fever Within 48 Hours Sepsis New/Unexplained Change in Mental Status Sepsis Action Taken by Nursing Laboratory Data Result diagrams: 11/22/20 04:53 11/22/20 04:53 Lab Results 11/22/20 11/22/20 11/22/20 Range/Units 04:53 04:53 05:44 WBC 14.76 H (4.8-10.8) K/uL RBC 4.70 (4.2-5.4) M/uL Hgb 12.4 (12.0-16.0) g/dL Hct 38.0 (37-47) % MCV 80.9 (80-100) fL MCH 26.4 (25-34) pg MCHC 32.6 (32-36) g/dL RDW Std Deviation 50.9 H (36.4-46.3) fL RDW Coeff of Juanpablo 17.0 H (11.5-14.5) % Plt Count 255 (130-400) K/uL MPV 9.3 (7.4-10.4) fL Immature Gran % (Auto) 0.3 % Neut % (Auto) 90.7 % Lymph % (Auto) 3.4 % [place] % (Auto) 5.5 % Eos % (Auto) 0.0 % Baso % (Auto) 0.1 % Neut # (Auto) 13.39 H (1.4-6.5) K/uL Lymph # (Auto) 0.50 L (1.2-3.4) K/uL [place] # (Auto) 0.81 H (0.11-0.59) K/uL Eos # (Auto) 0.00 (0-0.5) K/uL Baso # (Auto) 0.01 (0-0.2) K/uL Immature Gran # (Auto) 0.05 H (0.00-0.02) K/uL Sodium 137 (136-145) mmol/L Potassium 3.0 L (3.5-5.1) mmol/L Chloride 101 (98-107) mmol/L Carbon Dioxide 25 (21-32) mmol/L Anion Gap 11.0 (3-11) BUN 20 H (7-18) mg/dl Creatinine 1.92 H (0.6-1.2) mg/dl Est Cr Clr Drug Dosing 41.3 ml/min Est GFR ( Amer) 33.4 Est GFR (Non-Af Amer) 28.8 BUN/Creatinine Ratio 10.2 (10-20) Glucose 175 H (70-99) mg/dl Lactate (0.4-2.0) mmol/L Calcium 7.5 L (8.5-10.1) mg/dl Total Bilirubin 0.8 (0.2-1) mg/dl Direct Bilirubin 0.2 (0-0.2) mg/dl AST 27 (15-37) U/L ALT 40 (12-78) U/L Alkaline Phosphatase 142 H (45-117) U/L Total Protein 8.7 H (6.4-8.2) gm/dl Albumin 2.7 L (3.4-5.0) gm/dl Lipase 132 (73-393) U/L Procalcitonin (0-0.5) ng/ml Urine Color Dark Yellow Urine Appearance Turbid A (Clear) Urine pH 5.5 (4.5-7.5) Ur Specific Tabiona 1.022 (1.000-1.030) Urine Protein 3+ H (Negative) Urine Glucose (UA) 1+ H (Negative) Urine Ketones Trace H (Negative) Urine Blood 3+ H (Negative) Urine Nitrite Negative (Negative) Urine Bilirubin Negative (Negative) Urine Urobilinogen Negative (Negative) Ur Leukocyte Esterase Trace H (Negative) Urine WBC (Auto) >30 H (0-5) /hpf Urine RBC (Auto) 0-4 (0-4) /hpf U Hyaline Cast (Auto) 5-10 H (0-5) /lpf U Epithel Cells (Auto) >30 H (0-5) /lpf Urine Bacteria (Auto) Negative (Negative) Urine Yeast Not Reportable COVID-19 Eval Order SARS-CoV-2, RNA, NAAT (NEGATIVE) 11/22/20 11/22/20 11/22/20 Range/Units 06:30 06:30 06:41 WBC (4.8-10.8) K/uL RBC (4.2-5.4) M/uL Hgb (12.0-16.0) g/dL Hct (37-47) % MCV (80-100) fL MCH (25-34) pg MCHC (32-36) g/dL RDW Std Deviation (36.4-46.3) fL RDW Coeff of Juanpablo (11.5-14.5) % Plt Count (130-400) K/uL MPV (7.4-10.4) fL Immature Gran % (Auto) % Neut % (Auto) % Lymph % (Auto) % [place] % (Auto) % Eos % (Auto) % Baso % (Auto) % Neut # (Auto) (1.4-6.5) K/uL Lymph # (Auto) (1.2-3.4) K/uL [place] # (Auto) (0.11-0.59) K/uL Eos # (Auto) (0-0.5) K/uL Baso # (Auto) (0-0.2) K/uL Immature Gran # (Auto) (0.00-0.02) K/uL Sodium (136-145) mmol/L Potassium (3.5-5.1) mmol/L Chloride (98-107) mmol/L Carbon Dioxide (21-32) mmol/L Anion Gap (3-11) BUN (7-18) mg/dl Creatinine (0.6-1.2) mg/dl Est Cr Clr Drug Dosing ml/min Est GFR ( Amer) Est GFR (Non-Af Amer) BUN/Creatinine Ratio (10-20) Glucose (70-99) mg/dl Lactate 1.6 (0.4-2.0) mmol/L Calcium (8.5-10.1) mg/dl Total Bilirubin (0.2-1) mg/dl Direct Bilirubin (0-0.2) mg/dl AST (15-37) U/L ALT (12-78) U/L Alkaline Phosphatase (45-117) U/L Total Protein (6.4-8.2) gm/dl Albumin (3.4-5.0) gm/dl Lipase (73-393) U/L Procalcitonin (0-0.5) ng/ml Urine Color Urine Appearance (Clear) Urine pH (4.5-7.5) Ur Specific Tabiona (1.000-1.030) Urine Protein (Negative) Urine Glucose (UA) (Negative) Urine Ketones (Negative) Urine Blood (Negative) Urine Nitrite (Negative) Urine Bilirubin (Negative) Urine Urobilinogen (Negative) Ur Leukocyte Esterase (Negative) Urine WBC (Auto) (0-5) /hpf Urine RBC (Auto) (0-4) /hpf U Hyaline Cast (Auto) (0-5) /lpf U Epithel Cells (Auto) (0-5) /lpf Urine Bacteria (Auto) (Negative) Urine Yeast COVID-19 Eval Order Covid19 IDNow atMMIC SARS-CoV-2, RNA, NAAT NEGATIVE (NEGATIVE) 11/22/20 Range/Units 06:45 WBC (4.8-10.8) K/uL RBC (4.2-5.4) M/uL Hgb (12.0-16.0) g/dL Hct (37-47) % MCV (80-100) fL MCH (25-34) pg MCHC (32-36) g/dL RDW Std Deviation (36.4-46.3) fL RDW Coeff of Juanpablo (11.5-14.5) % Plt Count (130-400) K/uL MPV (7.4-10.4) fL Immature Gran % (Auto) % Neut % (Auto) % Lymph % (Auto) % [place] % (Auto) % Eos % (Auto) % Baso % (Auto) % Neut # (Auto) (1.4-6.5) K/uL Lymph # (Auto) (1.2-3.4) K/uL [place] # (Auto) (0.11-0.59) K/uL Eos # (Auto) (0-0.5) K/uL Baso # (Auto) (0-0.2) K/uL Immature Gran # (Auto) (0.00-0.02) K/uL Sodium (136-145) mmol/L Potassium (3.5-5.1) mmol/L Chloride (98-107) mmol/L Carbon Dioxide (21-32) mmol/L Anion Gap (3-11) BUN (7-18) mg/dl Creatinine (0.6-1.2) mg/dl Est Cr Clr Drug Dosing ml/min Est GFR ( Amer) Est GFR (Non-Af Amer) BUN/Creatinine Ratio (10-20) Glucose (70-99) mg/dl Lactate (0.4-2.0) mmol/L Calcium (8.5-10.1) mg/dl Total Bilirubin (0.2-1) mg/dl Direct Bilirubin (0-0.2) mg/dl AST (15-37) U/L ALT (12-78) U/L Alkaline Phosphatase (45-117) U/L Total Protein (6.4-8.2) gm/dl Albumin (3.4-5.0) gm/dl Lipase (73-393) U/L Procalcitonin 3.26 H (0-0.5) ng/ml Urine Color Urine Appearance (Clear) Urine pH (4.5-7.5) Ur Specific Tabiona (1.000-1.030) Urine Protein (Negative) Urine Glucose (UA) (Negative) Urine Ketones (Negative) Urine Blood (Negative) Urine Nitrite (Negative) Urine Bilirubin (Negative) Urine Urobilinogen (Negative) Ur Leukocyte Esterase (Negative) Urine WBC (Auto) (0-5) /hpf Urine RBC (Auto) (0-4) /hpf U Hyaline Cast (Auto) (0-5) /lpf U Epithel Cells (Auto) (0-5) /lpf Urine Bacteria (Auto) (Negative) Urine Yeast COVID-19 Eval Order SARS-CoV-2, RNA, NAAT (NEGATIVE) Administered Medications Acetaminophen (Acetaminophen 325 Mg Tab) 650 mg PO Q4H PRN PRN Reason: Pain or Fever Stop: 12/22/20 09:31 Last Admin: 11/22/20 19:30 Dose: 650 mg Documented by: [id number] Heparin Sodium (Porcine) (Heparin Sod 5,000 Unit/0.5 Ml Vial) 7,500 units SQ Q8 RIZWANA Stop: 12/22/20 13:59 Last Admin: 11/22/20 21:23 Dose: 7,500 units Documented by: [id number] Admin: 11/22/20 15:17 Dose: 7,500 units Documented by: [id number] Potassium Chloride/Sodium Chloride (Normal Saline W/20 Meq Kcl) 20 meq in 1,000 mls @ 100 mls/hr IV .Q10H RIZWANA Stop: 12/22/20 09:59 Last Admin: 11/22/20 19:24 Dose: 100 mls/hr Documented by: [id number] Infusion: 11/22/20 19:24 Dose: 100 mls/hr Documented by: [id number] Infusion: 11/22/20 18:37 Dose: 100 mls/hr Documented by: [id number] Admin: 11/22/20 10:37 Dose: 100 mls/hr Documented by: [id number] Piperacillin Sod/Tazobactam (Sod 4.5 gm/ Dextrose) 120 mls @ 30 mls/hr IV Q8H [facility]; Protocol Stop: 12/02/20 11:59 Last Infusion: 11/22/20 23:24 Dose: 0 mls/hr Documented by: [id number] Admin: 11/22/20 19:24 Dose: 30 mls/hr Documented by: [id number] Infusion: 11/22/20 16:25 Dose: 0 mls/hr Documented by: [id number] Admin: 11/22/20 12:25 Dose: 30 mls/hr Documented by: [id number] Morphine Sulfate (Morphine Sulfate 2 Mg/Ml Carp) 2 mg IV Q4H PRN PRN Reason: Pain Stop: 12/06/20 10:39 Last Admin: 11/22/20 15:16 Dose: 2 mg Documented by: [id number] Ondansetron HCl (Ondansetron Inj 2 Mg/Ml 2 Ml Vial) 4 mg IV Q6H PRN PRN Reason: Nausea Stop: 12/22/20 09:31 Last Admin: 11/22/20 17:53 Dose: 4 mg Documented by: [id number] Pantoprazole Sodium (Pantoprazole 40 Mg Tab) 40 mg PO QAM RIZWANA Stop: 12/22/20 10:29 Last Admin: 11/22/20 12:25 Dose: 40 mg Documented by: [id number] Discontinued Medications Acetaminophen (Acetaminophen 500 Mg Tab) 1,000 mg PO NOW STA Stop: 11/22/20 06:13 Last Admin: 11/22/20 06:27 Dose: 1,000 mg Documented by: [id number] Fentanyl Citrate (Fentanyl Citrate 100 Mcg/2 Ml Vial) 50 mcg IV NOW STA Stop: 11/22/20 04:44 Last Admin: 11/22/20 04:51 Dose: 50 mcg Documented by: [id number] Sodium Chloride (Nss 1000ml) 1,000 mls @ 999 mls/hr IV .Q1H1M ONE Stop: 11/22/20 05:43 Last Infusion: 11/22/20 05:52 Dose: 0 mls/hr Documented by: [id number] Admin: 11/22/20 04:51 Dose: 999 mls/hr Documented by: [id number] Sodium Chloride (Nss 1000ml) 1,000 mls @ 999 mls/hr IV .Q1H1M ONE Stop: 11/22/20 07:12 Last Infusion: 11/22/20 07:35 Dose: 0 mls/hr Documented by: [id number] Admin: 11/22/20 06:27 Dose: 999 mls/hr Documented by: [id number] Piperacillin Sod/Tazobactam Sod (Zosyn) 4.5 gm in 120 mls @ 240 mls/hr IV NOW ONE Stop: 11/22/20 06:41 Last Infusion: 11/22/20 07:15 Dose: 0 mls/hr Documented by: [id number] Admin: 11/22/20 06:45 Dose: 240 mls/hr Documented by: [id number] Ondansetron HCl (Ondansetron Inj 2 Mg/Ml 2 Ml Vial) 4 mg IV NOW STA Stop: 11/22/20 04:44 Last Admin: 11/22/20 04:52 Dose: 4 mg Documented by: [id number] Discharge Plan Visit Data Chief Complaint: Abdominal Pain Stated Complaint: ABDOMINAL PAIN ED Provider: Akbar Ospina Discharge Problem: Sepsis, Sigmoid diverticulitis Patient Disposition: Admitted As Inpatient Discharge Instructions Interventions: ED Discharge Assessment Last Done: 11/22/20 09:03 Discharge Problem: Sepsis Qualifiers: Sepsis type: sepsis due to unspecified organism Sepsis acute organ dysfunction status: unspecified Qualified Code(s): A41.9 - Sepsis, unspecified organism
[2020-11-22 05:03] LABS: Basophils # (auto) 0.01 K/uL (0-0.2); Basophils % (auto) 0.1 %; Hemoglobin 12.4 g/dL (12.0-16.0); Immature Granulocytes # (auto) 0.05 K/uL (0.00-0.02); Immature Granulocytes % (auto) 0.3 %; Lymphocytes % (auto) 3.4 %; Mean Corpuscular Hemoglobin 26.4 pg (25-34); Mean Corpuscular Hgb Conc 32.6 g/dL (32-36); Mean Corpuscular Volume 80.9 fL (80-100); Mean Platelet Volume 9.3 fL (7.4-10.4); Monocytes # (auto) 0.81 K/uL (0.11-0.59); Monocytes % (auto) 5.5 %; Neutrophils # (auto) 13.39 K/uL (1.4-6.5); Neutrophils % (auto) 90.7 %; Platelet Count 255 K/uL (130-400); RDW Standard Deviation 50.9 fL (36.4-46.3); White Blood Count 14.76 K/uL (4.8-10.8)
[2020-11-22 05:23] LABS: Albumin Level 2.7 gm/dl (3.4-5.0); BUN Creatinine Ratio 10.2 (10-20); Bilirubin Direct 0.2 mg/dl (0-0.2); Calcium 7.5 mg/dl (8.5-10.1); Creatinine Clr Calc Pharmacy 41.3 ml/min; Est GFR (African American) 33.4; Est GFR (Non-African American) 28.8
[2020-11-22 05:26] LABS: Bilirubin,Total 0.8 mg/dl (0.2-1); Total Protein 8.7 gm/dl (6.4-8.2)
[2020-11-22] MEDS ORDERED: PIPERACILLIN/TAZOBACTAM 4.5 GM/120 ML BAG IV ONE (06:12)
[2020-11-22] MEDS ORDERED: ACETAMINOPHEN 500 MG TAB PO STA (06:12)
[2020-11-22] MEDS ORDERED: PIPERACILL/TAZOBAC CONSULT ACTIVE PRN (06:12)
[2020-11-22 06:33] LABS: Appearance Urine Turbid (Clear); Bacteria Urine Automated Negative (Negative); Bilirubin Urine Negative (Negative); Blood Urine 3+ (Negative); Color Urine Dark Yellow; Epithelial Cell Urine Auto >30 /lpf (0-5); Glucose Urine UA 1+ (Negative); Ketones Urine Trace (Negative); Leukocyte Esterase Urine Trace (Negative); Nitrite Urine Negative (Negative); Protein Urine 3+ (Negative); Specific Gravity Urine 1.022 (1.000-1.030); Urobilinogen Urine Negative (Negative); WBC Urine Automated >30 /hpf (0-5); pH Urine 5.5 (4.5-7.5)
[2020-11-22 06:57] LABS: RBC Urine Automated 0-4 /hpf (0-4)
--- NOTE | 2020-11-22 08:18 | History & Physical Report ---
Date of Service November 22, 2020 Assessment & Plan (1) Sigmoid diverticulitis: acute LLQ pain, WBC 14k, tachycardia CT a/p with evidence of acute sigmoid diverticulitis given IV fluids and Zosyn in the ED feeling better allow clear liquid diet, continue Zosyn, repeat CBC in the AM no evidence of abscess to be drained on CT no need for surgical consult, should improve/resolve with antibiotics alone she follows with [facility] and was recently referred to [facility] colorectal for sigmoidectomy recommend she call [facility] colorectal once she is discharged to schedule for sigmoidectomy once she is fully recovered from infection (2) Sepsis: mild sepsis POA WBC 14k, tachycardic, temp 37.6 treat with IV fluids and Zosyn IV already better no evidence of shock admit to medical/surgical floor (3) Hypokalemia: low at 3.0 place 20mEq of K in fluids repeat tomorrow (4) Acute kidney injury: Cr is up to 1.9, typically 1.5-1.7 likely from acute infection, dehydration continue NSS + 20mEq of K at 100cc/hr (5) Chronic kidney disease, stage III (moderate): see above, K is higher than normal hold Torsemide for time being while on IV fluids (6) Hypertension: BP is stable, hold Torsemide (7) Vitamin D deficiency: (8) GERD (gastroesophageal reflux disease): change to Protonix 40mg PO daily while here (9) DVT prophylaxis: heparin 7500 q8 History of Present Illness Chief Complaint: I have diverticulitis Primary Care Provider: Nitesh Singh MD 55 yo female with history of sigmoid diverticulitis, has a serious bout in 2019 that put her in the hospital. She has had minor bouts as well that have not been that severe. On colonoscopy she has known diverticular disease and she follows with [facility] and Dr. Morton with [facility]. She was recently referred to [facility] colorectal surgery for evaluation of elective s igmoidectomy. There has been a question of possible fistula developing between colon and adjacent small bowel. It was recommended that she proceed with surgery and she was planning on scheduling the surgery and then she started to get LLQ pain. The pain started on 11/20/20. She has moved her bowels, no blood. She had some nausea but no vomiting. She has been trying to drink liquids but poor appetite. She has had a low grade temperature with periodic diaphoresis whenever she takes Tylenol for her pain. She has been sleeping all weekend, very weak. The pain was not improving and she assumed she had diverticulitis so she came to the ED for evaluation. CT shows acute sigmoid diverticulitis but there is no abscess or fluid to drain. WBC 14k, tachycardia and BP low normal on admission. K low at 3.0 and K is 1.9, up from baseline. She says her pain is better after Fentanyl IV in the ED and she received a 1L saline bolus and a dose of Zosyn IV. Allergies Allergy/AdvReac Type Severity Reaction Status Date / Time metronidazole Allergy Unknown Vomiting Verified 11/12/20 11:14 Home Medications Medication Instructions Recorded Confirmed Type acetaminophen 500 mg capsule 1,000 mg PO UD PRN cap 07/08/19 11/22/20 History omeprazole magnesium 20 mg 20 mg PO QPM 08/09/19 11/22/20 History tablet,delayed release Probiotic 3,000 mmu cells PO QDL 09/06/19 11/22/20 History torsemide 10 mg tablet 10 mg PO QAM #90 tab 09/10/20 11/22/20 Rx Systane (PF) 1 drp OPHTHALMIC (EYE) BID 11/02/20 11/22/20 History thyroid (pork) 15 mg tablet 15 mg PO DAILY #90 tab 11/02/20 11/22/20 Rx thyroid (pork) [[place] [facility]] 90 mg PO QAM 11/02/20 11/22/20 History Past Med/Surg History Medical History Abnormal CT of the abdomen 09/2020 "Question developing fistulous tract between the sigmoid colon and an adjacent loop of small bowel" Change in bowel habits Diverticulosis GERD (gastroesophageal reflux disease) Hiatal hernia Hx of renal cell cancer LEFT 2010, treated surgically Hx of thyroid cancer 2012 surgery/radiation Lymphedema of both lower extremities Morbid obesity with BMI of 45.0-49.9, adult Post-surgical hypothyroidism Rectal pain Sleep apnea Uterine fibroid Surgical History History of bilateral breast reduction surgery History of biopsy left kidney--malignant History of colonoscopy History of dilatation and curettage History of endometrial ablation History of esophagogastroduodenoscopy (EGD) History of left nephrectomy History of root canal procedure History of thyroidectomy, total 2013 x2--thyroid cancer History of wisdom tooth extraction Family History Grandmother (Maternal) Family history of pseudocholinesterase deficiency "allergy to anectine--paralyzed for a day or so" Diabetes Mother Cancer Obstructive sleep apnea Arthritis Father Cancer COPD (chronic obstructive pulmonary disease) Uncle Stroke Myocardial infarction Grandfather No problems noted. Grandfather (Maternal) Diabetes Parkinson disease Grandmother (Paternal) Stroke syndrome Hypertension Sister FH: migraine headache Aneurysm of ophthalmic artery Family/Other Multiple sclerosis cousin Grandfather (Paternal) Heart murmur Other Heart disease Malignant melanoma Prostate cancer Denies family history of Ovarian cancer Renal cell carcinoma Breast cancer Uterine cancer Social History Smoking Status: Never smoker Second Hand Exposure: Yes (as a child); Do You Dip or Chew Tobacco: No; Hx Alcohol Use: No Hx Substance Use: No Preferred Language: Mosotho Communication Ability: Effective Maintenance And Utilities Supervisor Required: No Beliefs That Will Affect Care: None marital status: Single Current Living Situation: Alone current occupational status: employed 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 Other Information That Helps Us Care for You: No Feels Safe at Home: Yes Safety Concerns: Feels Safe At This Time Assistive Devices: Cane and Glasses Review of Systems Review of Systems: All systems reviewed & are unremarkable except as noted in HPI & below Physical Exam Constitutional: WD/WN, vitals as above + overweight; no acute distress and + uncomfortable Eyes: PERRL, conjunctivae normal, anicteric sclerae ENMT: external ear and nose normal, oropharynx normal Neck: trachea midline, no thyromegaly Respiratory: normal respiratory effort, lungs clear to auscultation Cardiovascular: Rate/Rhythm: regular rate and regular rhythm Heart Sounds: normal S1 and normal S2; no murmur Vessels: no JVD Extremities: normal capillary refill and + edema (lymphedema) Gastrointestinal (Abdomen): Inspection/Auscultation: normal bowel sounds; abdomen not distended Percussion/Palpation: + abdomen tender (LLQ), abdomen soft and + tympanic to percussion; no guarding, abdomen not rigid and no ascites Musculoskeletal: no cyanosis or clubbing, extremities motor strength 5/5 Skin: no rashes, warm and dry Neurologic: patellar DTR's 2+ bilat, sensation intact and PERRL, EOMI, accommodation nl, no face palsy, no dysarthria Psychiatric: A+Ox3, euthymic affect Lymphatic: + lymphedema; no lymphadenopathy Results & Data Results & Data ([facility]) Vital Signs (Past 12 Hours) Vital Signs Temp Pulse Resp BP Pulse Ox 11/22/20 06:44 102 H 23 115/68 98 11/22/20 05:41 110 H 20 139/72 96 11/22/20 04:39 37.6 C H 125 H 18 107/72 98 Laboratory Results Laboratory Results - last 24 hr 11/22/20 11/22/20 11/22/20 04:53 04:53 05:44 WBC 14.76 H RBC 4.70 Hgb 12.4 Hct 38.0 MCV 80.9 MCH 26.4 MCHC 32.6 RDW Std Deviation 50.9 H RDW Coeff of Juanpablo 17.0 H Plt Count 255 MPV 9.3 Immature Gran % (Auto) 0.3 Neut % (Auto) 90.7 Lymph % (Auto) 3.4 [place] % (Auto) 5.5 Eos % (Auto) 0.0 Baso % (Auto) 0.1 Neut # (Auto) 13.39 H Lymph # (Auto) 0.50 L [place] # (Auto) 0.81 H Eos # (Auto) 0.00 Baso # (Auto) 0.01 Immature Gran # (Auto) 0.05 H Sodium 137 Potassium 3.0 L Chloride 101 Carbon Dioxide 25 Anion Gap 11.0 BUN 20 H Creatinine 1.92 H Est Cr Clr Drug Dosing 41.3 Est GFR ( Amer) 33.4 Est GFR (Non-Af Amer) 28.8 BUN/Creatinine Ratio 10.2 Glucose 175 H Lactate Calcium 7.5 L Total Bilirubin 0.8 Direct Bilirubin 0.2 AST 27 ALT 40 Alkaline Phosphatase 142 H Total Protein 8.7 H Albumin 2.7 L Lipase 132 Procalcitonin Urine Color Dark Yellow Urine Appearance Turbid A Urine pH 5.5 Ur Specific [place] 1.022 Urine Protein 3+ H Urine Glucose (UA) 1+ H Urine Ketones Trace H Urine Blood 3+ H Urine Nitrite Negative Urine Bilirubin Negative Urine Urobilinogen Negative Ur Leukocyte Esterase Trace H Urine WBC (Auto) >30 H Urine RBC (Auto) 0-4 U Hyaline Cast (Auto) 5-10 H U Epithel Cells (Auto) >30 H Urine Bacteria (Auto) Negative Urine Yeast Not Reportable COVID-19 Eval Order SARS-CoV-2, RNA, NAAT 11/22/20 11/22/20 11/22/20 06:30 06:30 06:41 WBC RBC Hgb Hct MCV MCH MCHC RDW Std Deviation RDW Coeff of Juanpablo Plt Count MPV Immature Gran % (Auto) Neut % (Auto) Lymph % (Auto) [place] % (Auto) Eos % (Auto) Baso % (Auto) Neut # (Auto) Lymph # (Auto) [place] # (Auto) Eos # (Auto) Baso # (Auto) Immature Gran # (Auto) Sodium Potassium Chloride Carbon Dioxide Anion Gap BUN Creatinine Est Cr Clr Drug Dosing Est GFR ( Amer) Est GFR (Non-Af Amer) BUN/Creatinine Ratio Glucose Lactate 1.6 Calcium Total Bilirubin Direct Bilirubin AST ALT Alkaline Phosphatase Total Protein Albumin Lipase Procalcitonin Urine Color Urine Appearance Urine pH Ur Specific [place] Urine Protein Urine Glucose (UA) Urine Ketones Urine Blood Urine Nitrite Urine Bilirubin Urine Urobilinogen Ur Leukocyte Esterase Urine WBC (Auto) Urine RBC (Auto) U Hyaline Cast (Auto) U Epithel Cells (Auto) Urine Bacteria (Auto) Urine Yeast COVID-19 Eval Order [facility] SARS-CoV-2, RNA, NAAT NEGATIVE 11/22/20 06:45 WBC RBC Hgb Hct MCV MCH MCHC RDW Std Deviation RDW Coeff of Juanpablo Plt Count MPV Immature Gran % (Auto) Neut % (Auto) Lymph % (Auto) [place] % (Auto) Eos % (Auto) Baso % (Auto) Neut # (Auto) Lymph # (Auto) [place] # (Auto) Eos # (Auto) Baso # (Auto) Immature Gran # (Auto) Sodium Potassium Chloride Carbon Dioxide Anion Gap BUN Creatinine Est Cr Clr Drug Dosing Est GFR ( Amer) Est GFR (Non-Af Amer) BUN/Creatinine Ratio Glucose Lactate Calcium Total Bilirubin Direct Bilirubin AST ALT Alkaline Phosphatase Total Protein Albumin Lipase Procalcitonin 3.26 H Urine Color Urine Appearance Urine pH Ur Specific [place] Urine Protein Urine Glucose (UA) Urine Ketones Urine Blood Urine Nitrite Urine Bilirubin Urine Urobilinogen Ur Leukocyte Esterase Urine WBC (Auto) Urine RBC (Auto) U Hyaline Cast (Auto) U Epithel Cells (Auto) Urine Bacteria (Auto) Urine Yeast COVID-19 Eval Order SARS-CoV-2, RNA, NAAT Diagnostic Findings CT abdomen/pelvis IMPRESSION: 1. No evidence of bowel obstruction. No evidence of free air 2. Acute sigmoid diverticulitis 3. Hepatic steatosis and mild hepatic splenomegaly 4. Surgically absent left kidney 5. Hiatal hernia 6. Rim calcified uterine fibroid Code Status & VTE Plan VTE Prophylaxis Plan VTE Prophylaxis will be ordered: Yes PG Care Time/CCT Total # of Minutes Spent Total Time Spent with Patient: Total time spent is greater than 50% in coordination of care (as documented) at patient's floor/unit and/or counseling patient: Coding Level of Care Code 57759 Initial Inpt Care Lvl 3 Diagnoses Sigmoid diverticulitis K57.32 Sepsis A41.9 Sepsis acute organ dysfunction status: unspecified Sepsis type: sepsis due to unspecified organism Hypokalemia E87.6 Acute kidney injury N17.9 Chronic kidney disease, stage III (moderate) N18.3 Hypertension I10 Vitamin D deficiency E55.9 GERD (gastroesophageal reflux disease) K21.9 Esophagitis presence: without esophagitis DVT prophylaxis Z29.9 (1) Sepsis Sepsis acute organ dysfunction status: unspecified Sepsis type: sepsis due to unspecified organism Qualified Code(s): A41.9 - Sepsis, unspecified organism (2) GERD (gastroesophageal reflux disease) Esophagitis presence: without esophagitis Qualified Code(s): K21.9 - Gastro- esophageal reflux disease without esophagitis
--- NOTE | 2020-11-22 08:40 | CT Scan Report ---
CT SCAN OF THE ABDOMEN AND PELVIS WITHOUT CONTRAST CLINICAL HISTORY: diffuse mid and left abdominal pain COMPARISON STUDY: 11/06/2020 TECHNIQUE: CT scan of the abdomen and pelvis was performed from the lung bases to the proximal femurs . Images are reviewed in the axial, sagittal, and coronal planes. IV contrast was not administered fo r this examination. A dose lowering technique was utilized adhering to the principles of ALARA. CT DOSE: 1621.54 mGy.cm FINDINGS: Lower chest: There is mild basilar atelectatic change. Is a hiatal hernia. There is a small pericardi al effusion. Liver: There is hepatic steatosis. No focal hepatic masses are visualized in this noncontrast study. Liver is mildly enlarged Gallbladder: Unremarkable. Spleen: Mildly enlarged measuring 13.6 cm Pancreas: Unremarkable. Adrenal glands: There is a low-density bilateral adrenal gland thickening likely secondary to adenoma tous hyperplasia Kidneys: Left kidney is surgically absent. There is a 48 mm right renal cyst. There is no hydronephro sis. Bowel: There are no transition zones indicate bowel obstruction. There is colonic diverticulosis. The re is mild thickening of the sigmoid colon with minimal peridiverticular inflammatory changes. The fi ndings are indicative of acute diverticulitis. There is no evidence of a peridiverticular abscess. Th ere is no evidence of acute appendicitis. Peritoneum: There is no intraperitoneal free air or abdominal ascites. Vasculature: The abdominal aorta is normal in course and caliber. Adenopathy: None. Pelvic viscera: There is a 51 mm rim calcified uterine mass consistent with a degenerated fibroid Skeletal structures: No destructive osseous lesions are seen. IMPRESSION: 1. No evidence of bowel obstruction. No evidence of free air 2. Acute sigmoid diverticulitis 3. Hepatic steatosis and mild hepatic splenomegaly 4. Surgically absent left kidney 5. Hiatal hernia 6. Rim calcified uterine fibroid ACT 112: Negative or not required by law. Electronically signed by: Nahid Phillips M.D. 11/22/2020 8:38 AM
[2020-11-22] MEDS ORDERED: ARMOUR THYROID 30 MG TAB PO SCH (09:32)
[2020-11-22] MEDS ORDERED: ONDANSETRON INJ 2 MG/ML 2 ML VIAL IV PRN (09:32)
[2020-11-22] MEDS: NSS + 20MEQ KCL 20 MEQ/1,000 ML BAG IV SCH ×2 (10:37→19:24)
[2020-11-22] MEDS ORDERED: MoRPHine SULFATE 2 MG/ML CARP IV PRN (10:40)
[2020-11-22] MEDS ORDERED: MoRPHine SULFATE 4 MG/ML 1 ML CARP\\VIAL IV PRN (10:40)
[2020-11-22] MEDS: PANTOprazole 40 MG TAB PO SCH (12:25)
[2020-11-22] MEDS: PIPERACILLIN/TAZOBACTAM 4.5 GM in DEXTROSE 5% 100 ML IV SCH ×2 (12:25→19:24)
[2020-11-22] MEDS: HEPARIN SOD 5,000 UNIT/0.5 ML VIAL SQ SCH ×2 (15:17→21:23)
[2020-11-22] MEDS: ACETAMINOPHEN 325 MG TAB PO PRN (19:30)
[2020-11-23] MEDS: PIPERACILLIN/TAZOBACTAM 4.5 GM in DEXTROSE 5% 100 ML IV SCH ×3 (04:51→19:30)
[2020-11-23] MEDS: ARMOUR THYROID 30 MG TAB PO SCH (04:52)
[2020-11-23] MEDS: NSS + 20MEQ KCL 20 MEQ/1,000 ML BAG IV SCH (04:52)
[2020-11-23] MEDS: HEPARIN SOD 5,000 UNIT/0.5 ML VIAL SQ SCH ×3 (04:52→21:14)
[2020-11-23 06:54] LABS: Basophils # (auto) 0.02 K/uL (0-0.2); Basophils % (auto) 0.1 %; Eosinophils # (auto) 0.02 K/uL (0-0.5); Eosinophils % (auto) 0.1 %; Hematocrit (blood only) 32.5 % (37-47); Hemoglobin 10.5 g/dL (12.0-16.0); Immature Granulocytes # (auto) 0.05 K/uL (0.00-0.02); Immature Granulocytes % (auto) 0.4 %; Lymphocytes # (auto) 0.86 K/uL (1.2-3.4); Lymphocytes % (auto) 6.4 %; Mean Corpuscular Hgb Conc 32.3 g/dL (32-36); Mean Corpuscular Volume 80.4 fL (80-100); Mean Platelet Volume 9.8 fL (7.4-10.4); Monocytes # (auto) 0.96 K/uL (0.11-0.59); Monocytes % (auto) 7.2 %; Neutrophils # (auto) 11.45 K/uL (1.4-6.5); Neutrophils % (auto) 85.8 %; Platelet Count 213 K/uL (130-400); RDW Coefficient of Variation 17.4 % (11.5-14.5); RDW Standard Deviation 51.7 fL (36.4-46.3); Red Blood Count 4.04 M/uL (4.2-5.4); White Blood Count 13.36 K/uL (4.8-10.8)
[2020-11-23 07:07] LABS: BUN Creatinine Ratio 11.3 (10-20); Calcium 6.5 mg/dl (8.5-10.1); Creatinine Clr Calc Pharmacy 39.5 ml/min; Est GFR (African American) 32.6; Est GFR (Non-African American) 28.1; Potassium 4.1 mmol/L (3.5-5.1)
[2020-11-23] MEDS: PANTOprazole 40 MG TAB PO SCH (08:48)
--- NOTE | 2020-11-23 09:08 | Hospitalist Progress Note ---
Date of Service November 23, 2020 Assessment & Plan (1) Sigmoid diverticulitis: * Sepsis POA -- acute LLQ pain, WBC 14k, tachycardia * CT a/p with evidence of acute sigmoid diverticulitis * Continue IV Zosyn -- * Changed IV to more balanced solution Normosol @ 100cc/hr * NPO except meds/sips and advance to clears as tolerated * Antiemetics, pain control prn * WBC trending down but still elevated at 13.36k * Temp 37.8C last evening * Initial blood cultures 1/2 with gram positive cocci in chains * Repeat blood cultures pending * Clinically feeling better -- continue current course. * See recently by [facility] and plans for f/u with [facility] colorectal for sigmoidectomy -- she is to call at d/c for follow up once recovered from current infection * Monitor electrolytes, replacement as needed. K low on admit -- will check magnesium level and replace if needed (2) Sepsis: * mild sepsis POA * WBC 14k, tachycardic, temp 37.6 * treat with IV fluids and Zosyn IV * already better * no evidence of shock (3) Hypokalemia: * low at 3.0 and given 20mEq of K in fluids with repeat wnl at 4.1 * checking magnesium now * BMP in AM (4) Acute kidney injury: * Cr is up to 1.96 from 1.92, typically 1.5-1.7 * likely from acute infection, dehydration * continue NSS + 20mEq of K at 100cc/hr changed to normosol as above * Avoid NSAIDs, nephrotoxic medications (5) Chronic kidney disease, stage III (moderate): * see above * hold Torsemide for time being while on IV fluids * Continue to hold torsemide (6) Hypertension: * BP is low normal 103/69 and asypmtomatic * Continue to hold Torsemide * Continue to monitor (7) Vitamin D deficiency: * Low at 28 August 2020 -- not on replacement currently but would discuss with patient prior to d/c and possible start (8) GERD (gastroesophageal reflux disease): * change to Protonix 40mg PO daily while inpatient * Stable. checking magnesium as above (9) Post-surgical hypothyroidism: * for hx papillary thyroid ca * TSH last elevated but no FT4 * Will check labs with AM draw * Continue pork thyroid 90 + 15mg daily for total 105mg daily (10) Bacteremia: * +Bcx as above * Repeat pending * Abx as above (11) DVT prophylaxis: * heparin 7500 q8 Admission and Anticipated Discharge Date Admission Date: November 22, 2020 Supervising Physician Co-Signing Physician Notes PA Supervision Note: I did not personally see or examine the patient today, but I verified all sibley points of ALYSSA Pavon's assessment and plan with the following exceptions/additions: None Subjective Patient evaluated this morning. Had some nausea/vomiting last evening but believe is from Dilaudid in ER then morphine last night. Temp last night as well with episodes. No further episodes. Will take it easy with clear/water for lunch then advance to clears for dinner. She states she is hungry. Moving her bowels. No blood reported. Some shortness of breath reported but no wheezing. Lungs clear on exam. No chest pain, further nausea or vomiting. Minimal LLQ discomfort but drastically improved. Plans on f/u with [facility] for colectomy in upcoming month but was interrupted due to current pain. Review of Systems Review of Systems: All systems reviewed & are unremarkable except as noted in HPI & below Physical Exam Constitutional: WD/WN, vitals as above + obese, cooperative and comfortable; no acute distress Eyes: PERRL, conjunctivae normal, anicteric sclerae ENMT: external ear and nose normal, oropharynx normal Neck: trachea midline, no thyromegaly Respiratory: normal respiratory effort, lungs clear to auscultation Cardiovascular: Rate/Rhythm: regular rate and regular rhythm Heart Sounds: normal S1 and normal S2; no murmur Vessels: no JVD Extremities: normal capillary refill and + edema (lymphedema) Gastrointestinal (Abdomen): Inspection/Auscultation: normal bowel sounds; abdomen not distended Percussion/Palpation: + abdomen tender (LLQ), abdomen soft and + tympanic to percussion; no guarding, abdomen not rigid and no ascites Musculoskeletal: no cyanosis or clubbing, extremities motor strength 5/5 Skin: no rashes, warm and dry Neurologic: patellar DTR's 2+ bilat, sensation intact and PERRL, EOMI, accommodation nl, no face palsy, no dysarthria Psychiatric: A+Ox3, euthymic affect Lymphatic: + lymphedema; no lymphadenopathy Results & Data Results & Data ([facility]) Vital Signs (Past 12 Hours) Vital Signs Temp Pulse Pulse Resp BP BP Pulse Ox 11/23/20 07:12 36.9 C 91 H 18 103/69 98 11/23/20 03:13 77 18 95 11/22/20 23:18 74 18 97 11/22/20 22:26 36.7 C 75 22 104/60 96 11/22/20 21:22 37.4 C Laboratory Results 11/23/20 11/23/20 Range/Units 06:17 06:17 WBC 13.36 H (4.8-10.8) K/uL RBC 4.04 L (4.2-5.4) M/uL Hgb 10.5 L (12.0-16.0) g/dL Hct 32.5 L (37-47) % MCV 80.4 (80-100) fL MCH 26.0 (25-34) pg MCHC 32.3 (32-36) g/dL RDW Std Deviation 51.7 H (36.4-46.3) fL RDW Coeff of Juanpablo 17.4 H (11.5-14.5) % Plt Count 213 (130-400) K/uL MPV 9.8 (7.4-10.4) fL Immature Gran % (Auto) 0.4 % Neut % (Auto) 85.8 % Lymph % (Auto) 6.4 % [place] % (Auto) 7.2 % Eos % (Auto) 0.1 % Baso % (Auto) 0.1 % Neut # (Auto) 11.45 H (1.4-6.5) K/uL Lymph # (Auto) 0.86 L (1.2-3.4) K/uL [place] # (Auto) 0.96 H (0.11-0.59) K/uL Eos # (Auto) 0.02 (0-0.5) K/uL Baso # (Auto) 0.02 (0-0.2) K/uL Immature Gran # (Auto) 0.05 H (0.00-0.02) K/uL Sodium 140 (136-145) mmol/L Potassium 4.1 D (3.5-5.1) mmol/L Chloride 111 H (98-107) mmol/L Carbon Dioxide 19 L (21-32) mmol/L Anion Gap 10.0 (3-11) BUN 22 H (7-18) mg/dl Creatinine 1.96 H (0.6-1.2) mg/dl Est Cr Clr Drug Dosing 39.5 ml/min Est GFR ( Amer) 32.6 Est GFR (Non-Af Amer) 28.1 BUN/Creatinine Ratio 11.3 (10-20) Glucose 99 (70-99) mg/dl Calcium 6.5 L (8.5-10.1) mg/dl Diagnostic Findings CT SCAN OF THE ABDOMEN AND PELVIS WITHOUT CONTRAST CLINICAL HISTORY: diffuse mid and left abdominal pain COMPARISON STUDY: 11/06/2020 TECHNIQUE: CT scan of the abdomen and pelvis was performed from the lung bases to the proximal femurs. Images are reviewed in the axial, sagittal, and coronal planes. IV contrast was not administered for this examination. A dose lowering technique was utilized adhering to the principles of ALARA. CT DOSE: 1621.54 mGy.cm FINDINGS: Lower chest: There is mild basilar atelectatic change. Is a hiatal hernia. There is a small pericardial effusion. Liver: There is hepatic steatosis. No focal hepatic masses are visualized in this noncontrast study. Liver is mildly enlarged Gallbladder: Unremarkable. Spleen: Mildly enlarged measuring 13.6 cm Pancreas: Unremarkable. Adrenal glands: There is a low-density bilateral adrenal gland thickening likely secondary to adenomatous hyperplasia Kidneys: Left kidney is surgically absent. There is a 48 mm right renal cyst. There is no hydronephrosis. Bowel: There are no transition zones indicate bowel obstruction. There is colonic diverticulosis. There is mild thickening of the sigmoid colon with minimal peridiverticular inflammatory changes. The findings are indicative of acute diverticulitis. There is no evidence of a peridiverticular abscess. There is no evidence of acute appendicitis. Peritoneum: There is no intraperitoneal free air or abdominal ascites. Vasculature: The abdominal aorta is normal in course and caliber. Adenopathy: None. Pelvic viscera: There is a 51 mm rim calcified uterine mass consistent with a degenerated fibroid Skeletal structures: No destructive osseous lesions are seen. IMPRESSION: 1. No evidence of bowel obstruction. No evidence of free air 2. Acute sigmoid diverticulitis 3. Hepatic steatosis and mild hepatic splenomegaly 4. Surgically absent left kidney 5. Hiatal hernia 6. Rim calcified uterine fibroid PG Care Time/CCT Total # of Minutes Spent Total Time Spent with Patient: Total time spent is greater than 50% in coordination of care (as documented) at patient's floor/unit and/or counseling patient: Coding Level of Care Code 63376 Subseq Hosp Care Lvl 3 Diagnoses Sigmoid diverticulitis K57.32 Sepsis A41.9 Sepsis acute organ dysfunction status: unspecified Sepsis type: sepsis due to unspecified organism Hypokalemia E87.6 Acute kidney injury N17.9 Chronic kidney disease, stage III (moderate) N18.3 Hypertension I10 Vitamin D deficiency E55.9 GERD (gastroesophageal reflux disease) K21.9 Esophagitis presence: without esophagitis Post-surgical hypothyroidism E89.0 Bacteremia R78.81 DVT prophylaxis Z29.9 (1) Sepsis Sepsis acute organ dysfunction status: unspecified Sepsis type: sepsis due to unspecified organism Qualified Code(s): A41.9 - Sepsis, unspecified organism (2) GERD (gastroesophageal reflux disease) Esophagitis presence: without esophagitis Qualified Code(s): K21.9 - Gastro- esophageal reflux disease without esophagitis
[2020-11-23] MEDS: NORMOSOL-R 1,000 ML IV SCH ×2 (09:52→19:30)
[2020-11-23 10:08] LABS: Albumin Level 2.1 gm/dl (3.4-5.0); Bilirubin Direct 0.1 mg/dl (0-0.2); Bilirubin,Total 0.5 mg/dl (0.2-1); Total Protein 6.8 gm/dl (6.4-8.2)
[2020-11-23] MEDS: ACETAMINOPHEN 325 MG TAB PO PRN (19:29)
[2020-11-24] MEDS: PIPERACILLIN/TAZOBACTAM 4.5 GM in DEXTROSE 5% 100 ML IV SCH ×3 (03:20→20:54)
[2020-11-24] MEDS: NORMOSOL-R 1,000 ML IV SCH (03:20)
[2020-11-24] MEDS: ARMOUR THYROID 30 MG TAB PO SCH (05:58)
[2020-11-24] MEDS: HEPARIN SOD 5,000 UNIT/0.5 ML VIAL SQ SCH ×3 (06:02→20:58)
[2020-11-24 08:14] LABS: Hematocrit (blood only) 31.3 % (37-47); Hemoglobin 9.8 g/dL (12.0-16.0); Mean Corpuscular Hemoglobin 25.6 pg (25-34); Mean Corpuscular Hgb Conc 31.3 g/dL (32-36); Mean Corpuscular Volume 81.7 fL (80-100); Mean Platelet Volume 9.4 fL (7.4-10.4); Platelet Count 253 K/uL (130-400); RDW Coefficient of Variation 17.4 % (11.5-14.5); Red Blood Count 3.83 M/uL (4.2-5.4); White Blood Count 9.86 K/uL (4.8-10.8)
[2020-11-24] MEDS: PANTOprazole 40 MG TAB PO SCH (08:18)
[2020-11-24 08:53] LABS: Albumin Level 1.9 gm/dl (3.4-5.0); BUN Creatinine Ratio 10.2 (10-20); Calcium 6.7 mg/dl (8.5-10.1); Creatinine Clr Calc Pharmacy 41.4 ml/min; Est GFR (African American) 34.5; Est GFR (Non-African American) 29.7; Potassium 3.3 mmol/L (3.5-5.1)
--- NOTE | 2020-11-24 09:01 | Hospitalist Progress Note ---
Date of Service November 24, 2020 Assessment & Plan (1) Sigmoid diverticulitis: * Sepsis POA -- acute LLQ pain, WBC 14k, tachycardia * CT a/p with evidence of acute sigmoid diverticulitis * Continue IV Zosyn (day 3 of therapy) * Changed IV to more balanced solution Normosol @ 100cc/hr -- add K today for slightly low potassium * Pepcid IV BID for reflux symptoms/belching and will hold Protonix * Full liquid diet tolerated well today * Antiemetics, pain control prn (only utilizing tylenol currently) * WBC trending down, now wnl at 9.8k from 14.7k on admission * No further temps * Initial blood cultures 2/2 with gram positive cocci in chains -- Streptococcus intermedius on one culture. ID consulted. Anticipate at least 2 weeks from negative cx. Repeat cx without growth currently * Clinically feeling better -- continue current course. * See recently by [facility] GI and plans for f/u with [facility] colorectal for sigmoidectomy -- she is to call at d/c for follow up once recovered from current infection * Monitor electrolytes, replacement as needed (2) Sepsis: * mild sepsis POA with WBC 14k, tachycardic, temp 37.6 * treat with IV fluids and Zosyn IV * already better * no evidence of shock (3) Hypokalemia: * low at 3.0 and given 2.0mEq of K in fluids with repeat wnl at 4.1. Mag wnl * Low again today at 3.3 and will continue in IVF * BMP in AM (4) Acute kidney injury: * Cr is 1.87 from 1.96, typically 1.5-1.7 * likely from acute infection, dehydration * continue IVF as above * Holding PPI , utilizing pepcid IV BID * Avoid NSAIDs, nephrotoxic medications (5) Chronic kidney disease, stage III (moderate): * see above * hold Torsemide for time being while on IV fluids (6) Hypertension: * BP 112/76 * Continue to hold Torsemide for elevated Cr * Continue to monitor (7) Vitamin D deficiency: * Low at 28 August 2020 -- not on replacement currently but would discuss with patient prior to d/c and possible start (8) GERD (gastroesophageal reflux disease): * change to Protonix 40mg PO daily while inpatient (on hold as above and on pepcid BID) * Stable. (9) Post-surgical hypothyroidism: * for hx papillary thyroid ca * TSH last elevated but no FT4 --> repeat TSH wnl at 2.79 * Continue pork thyroid 90 + 15mg daily for total 105mg daily (10) Bacteremia: * +Bcx as above * Repeat pending * Abx as above (11) DVT prophylaxis: * heparin 7500 q8 Anemia * H/h 9.8/31.3 but has been on IVF and suspect some dilution. * MCV low normal at 81.7 and added iron studies to AM labs. * Ferritin elevated, likely reactive however iron low at 27 * Will check fecal occult for completeness * TIBC low 150, transferrin 110L c/w anemia of chronic disease however may benefit from some supplementation given likely poor absorption with GI issues? * CBC in AM (IVF have been decreased and patient taking adequate PO) Elevated alk phos * Could be some volume overload although appeared euvolemic on examination. IVF since decreased * ?medication related, ?Zosyn * INR wnl * Fatty liver on imaging but will add Hep panel to AM labs * Monitor in AM Dispo: continued inpatient stay Admission and Anticipated Discharge Date Admission Date: November 22, 2020 Supervising Physician Co-Signing Physician Notes PA Supervision Note: I did not personally see or examine the patient today, but I verified all sibley points of ALYSSA Pavon's assessment and plan with the following exceptions/additions: With Strep intermedius bacteremia--> check ECHO Elevated alk phos, hypocalcemia--> check Vit D. ALso alk phos could be from intestine source; replace calcium Continue Zosyn for diverticulitis Follow CBC, check Hemoccult Subjective Patient evaluated this morning. Feeling better. Still with belching/gas. +BM. Abdominal pain present but improved. Plans for advancement of diet today. No further nausea/vomiting. No fever, chills, chest pain, shortness of breath, dysuria reported. Review of Systems Review of Systems: All systems reviewed & are unremarkable except as noted in HPI & below Physical Exam Constitutional: WD/WN, vitals as above + obese, cooperative and comfortable; no acute distress Eyes: PERRL, conjunctivae normal, anicteric sclerae ENMT: external ear and nose normal, oropharynx normal Neck: trachea midline, no thyromegaly Respiratory: normal respiratory effort, lungs clear to auscultation Cardiovascular: Rate/Rhythm: regular rate and regular rhythm Heart Sounds: normal S1 and normal S2; no murmur Vessels: no JVD Extremities: normal capillary refill and + edema (lymphedema) Gastrointestinal (Abdomen): Inspection/Auscultation: normal bowel sounds; abdomen not distended Percussion/Palpation: + abdomen tender (LLQ on deep palpation, improved), abdomen soft and + tympanic to percussion; no guarding, abdomen not rigid and no ascites Musculoskeletal: no cyanosis or clubbing, extremities motor strength 5/5 Skin: no rashes, warm and dry Neurologic: patellar DTR's 2+ bilat, sensation intact and PERRL, EOMI, accommodation nl, no face palsy, no dysarthria Psychiatric: A+Ox3, euthymic affect Lymphatic: + lymphedema; no lymphadenopathy Results & Data Results & Data ([facility]) Vital Signs (Past 12 Hours) Vital Signs Temp Pulse Pulse Resp BP Pulse Ox 11/24/20 07:30 37.1 C 80 16 112/76 97 11/24/20 03:50 72 16 94 11/23/20 23:00 16 11/23/20 22:31 36.9 C 65 18 116/75 96 Laboratory Results 11/24/20 11/24/20 11/23/20 Range/Units 08:08 08:08 09:27 WBC 9.86 (4.8-10.8) K/uL RBC 3.83 L (4.2-5.4) M/uL Hgb 9.8 L (12.0-16.0) g/dL Hct 31.3 L (37-47) % MCV 81.7 (80-100) fL MCH 25.6 (25-34) pg MCHC 31.3 L (32-36) g/dL RDW Std Deviation 52.0 H (36.4-46.3) fL RDW Coeff of Juanpablo 17.4 H (11.5-14.5) % Plt Count 253 (130-400) K/uL MPV 9.4 (7.4-10.4) fL Sodium 138 (136-145) mmol/L Potassium 3.3 L D (3.5-5.1) mmol/L Chloride 107 (98-107) mmol/L Carbon Dioxide 24 (21-32) mmol/L Anion Gap 7.0 (3-11) BUN 19 H (7-18) mg/dl Creatinine 1.87 H (0.6-1.2) mg/dl Est Cr Clr Drug Dosing 41.4 ml/min Est GFR ( Amer) 34.5 Est GFR (Non-Af Amer) 29.7 BUN/Creatinine Ratio 10.2 (10-20) Glucose 105 H (70-99) mg/dl Calcium 6.7 L (8.5-10.1) mg/dl Magnesium (1.8-2.4) mg/dl Total Bilirubin Pending 0.5 (0.2-1) mg/dl Direct Bilirubin 0.1 (0-0.2) mg/dl AST 26 21 (15-37) U/L ALT 35 29 (12-78) U/L Alkaline Phosphatase Pending 145 H (45-117) U/L Total Protein Pending 6.8 D (6.4-8.2) gm/dl Albumin 1.9 L 2.1 L (3.4-5.0) gm/dl Globulin Pending Albumin/Globulin Ratio Pending TSH Pending 11/23/20 Range/Units 08:27 WBC (4.8-10.8) K/uL RBC (4.2-5.4) M/uL Hgb (12.0-16.0) g/dL Hct (37-47) % MCV (80-100) fL MCH (25-34) pg MCHC (32-36) g/dL RDW Std Deviation (36.4-46.3) fL RDW Coeff of Juanpablo (11.5-14.5) % Plt Count (130-400) K/uL MPV (7.4-10.4) fL Sodium (136-145) mmol/L Potassium (3.5-5.1) mmol/L Chloride (98-107) mmol/L Carbon Dioxide (21-32) mmol/L Anion Gap (3-11) BUN (7-18) mg/dl Creatinine (0.6-1.2) mg/dl Est Cr Clr Drug Dosing ml/min Est GFR ( Amer) Est GFR (Non-Af Amer) BUN/Creatinine Ratio (10-20) Glucose (70-99) mg/dl Calcium (8.5-10.1) mg/dl Magnesium 2.1 (1.8-2.4) mg/dl Total Bilirubin (0.2-1) mg/dl Direct Bilirubin (0-0.2) mg/dl AST (15-37) U/L ALT (12-78) U/L Alkaline Phosphatase (45-117) U/L Total Protein (6.4-8.2) gm/dl Albumin (3.4-5.0) gm/dl Globulin Albumin/Globulin Ratio TSH PG Care Time/CCT Total # of Minutes Spent Total Time Spent with Patient: Total time spent is greater than 50% in coordination of care (as documented) at patient's floor/unit and/or counseling patient: Coding Level of Care Code 87151 Subseq Hosp Care Lvl 3 Diagnoses Sigmoid diverticulitis K57.32 Sepsis A41.9 Sepsis acute organ dysfunction status: unspecified Sepsis type: sepsis due to unspecified organism Hypokalemia E87.6 Acute kidney injury N17.9 Chronic kidney disease, stage III (moderate) N18.3 Hypertension I10 Vitamin D deficiency E55.9 GERD (gastroesophageal reflux disease) K21.9 Esophagitis presence: without esophagitis Post-surgical hypothyroidism E89.0 Bacteremia R78.81 DVT prophylaxis Z29.9 (1) Sepsis Sepsis acute organ dysfunction status: unspecified Sepsis type: sepsis due to unspecified organism Qualified Code(s): A41.9 - Sepsis, unspecified organism (2) GERD (gastroesophageal reflux disease) Esophagitis presence: without esophagitis Qualified Code(s): K21.9 - Gastro- esophageal reflux disease without esophagitis
[2020-11-24 09:24] LABS: Albumin Globulin Ratio 0.4 (0.9-2); Bilirubin,Total 0.7 mg/dl (0.2-1); Globulin 5.2 gm/dl (2.5-4.0); Thyroid Stimulating Hormone 2.79 uIu/ml (0.300-4.500); Total Protein 7.1 gm/dl (6.4-8.2)
[2020-11-24 09:42] LABS: Prothrombin Time 10.5 Seconds (9.0-12.0)
[2020-11-24 10:03] LABS: Ferritin 644.6 ng/ml (8-388); Magnesium 2.4 mg/dl (1.8-2.4)
[2020-11-24] MEDS: POTASSIUM CHLORIDE 20 MEQ in NORMOSOL-R 1,000 ML IV SCH ×2 (10:14→22:28)
[2020-11-24] MEDS: ACETAMINOPHEN 325 MG TAB PO PRN ×2 (12:58→23:18)
[2020-11-24] MEDS: FAMOTIDINE 20 MG in SYRINGE 3 ML IV SCH (12:58)
[2020-11-24] MEDS ORDERED: CALCIUM GLUCONATE 10% 1,000 MG in SODIUM CHLORIDE 0.9% 50 ML IV ONE (19:15)
[2020-11-25] MEDS: PIPERACILLIN/TAZOBACTAM 4.5 GM in DEXTROSE 5% 100 ML IV SCH ×3 (04:57→20:35)
[2020-11-25] MEDS: HEPARIN SOD 5,000 UNIT/0.5 ML VIAL SQ SCH ×3 (05:00→20:35)
[2020-11-25] MEDS: ARMOUR THYROID 30 MG TAB PO SCH (05:00)
[2020-11-25 06:26] LABS: Hematocrit (blood only) 29.5 % (37-47); Hemoglobin 9.2 g/dL (12.0-16.0); Mean Corpuscular Hemoglobin 25.3 pg (25-34); Mean Corpuscular Hgb Conc 31.2 g/dL (32-36); Mean Corpuscular Volume 81.3 fL (80-100); Mean Platelet Volume 9.1 fL (7.4-10.4); Platelet Count 242 K/uL (130-400); RDW Coefficient of Variation 17.3 % (11.5-14.5); RDW Standard Deviation 51.9 fL (36.4-46.3); Red Blood Count 3.63 M/uL (4.2-5.4); White Blood Count 8.61 K/uL (4.8-10.8)
[2020-11-25 06:58] LABS: Albumin Level 1.9 gm/dl (3.4-5.0); BUN Creatinine Ratio 9.5 (10-20); Calcium 6.7 mg/dl (8.5-10.1); Creatinine Clr Calc Pharmacy 46.4 ml/min; Est GFR (African American) 39.5; Est GFR (Non-African American) 34.1; Magnesium 2.4 mg/dl (1.8-2.4); Potassium 3.2 mmol/L (3.5-5.1)
[2020-11-25 07:01] LABS: Bilirubin,Total 0.5 mg/dl (0.2-1); Total Protein 6.6 gm/dl (6.4-8.2)
[2020-11-25 07:27] LABS: Vitamin D, 25 Hydrox 12.7 ng/ml (30-100)
[2020-11-25 07:39] LABS: Hepatitis B Surf Ag Rflx Conf Neg (Neg)
[2020-11-25] MEDS ORDERED: POTASSIUM CHLORIDE CRTAB 20 MEQ TABCR PO STA (08:04)
[2020-11-25] MEDS ORDERED: CALCIUM GLUCONATE 10% 2,000 MG in SODIUM CHLORIDE 0.9% 50 ML IV ONE (08:05)
[2020-11-25 08:07] LABS: Hepatitis C IgG 13Yrs+Old_Rflx Neg (Neg)
--- NOTE | 2020-11-25 08:51 | Hospitalist Progress Note ---
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 * WBC trending down, now wnl * No further temps * Initial blood cultures 2/2 with gram positive cocci in chains -- Streptococcus intermedius on one culture. * ID consulted --> appreciate recs * Anticipate at least 2 weeks from negative cx. Repeat cx without growth currently * Clinically feeling better -- continue current course. * See recently by [facility] GI and plans for f/u with [facility] colorectal for sigmoidectomy -- she is to call at d/c for follow up once recovered from current infection. Plans for f/u in December. GI seen during admission. Continue abx and low residue diet recommended * Monitor electrolytes, replacement as needed (2) Sepsis: * mild sepsis POA with WBC 14k, tachycardic, temp 37.6 * treat with IV fluids and Zosyn IV * already better * no evidence of shock (3) Hypokalemia: * low at 3.0 and given 2.0mEq of K in fluids with repeat wnl at 4.1. Mag wnl * Low again today at 3.2 and will continue in IVF but order 40meq PO * BMP in AM (4) Acute kidney injury: * Cr is 1.67 from 1.96, typically 1.5-1.7 * likely from acute infection, dehydration * continue IVF as above * Holding PPI , utilizing pepcid IV BID * Avoid NSAIDs, nephrotoxic medications (5) Chronic kidney disease, stage III (moderate): * see above -- also with absent L kidney due to renal CA -- follows with Dr. Gauthier. Of note, also with hypocalcemia/vitamin D deficiency but states she has not been on replacement for years. * * hold Torsemide for time being while on IV fluids (6) Hypertension: * BP 101/63 * Continue to hold Torsemide for elevated Cr * Continue to monitor (7) Vitamin D deficiency: * Low at 28 August 2020 -- not on replacement currently but would discuss with patient prior to d/c and possible start. She states she had been on replacement in the past but has not been on for years * Repeat 12.7 low--> ordered calcitriol and 2gm IV calcium for low calcium --> Needs continued replacement at discharge * Repeating labs this afternoon. (8) GERD (gastroesophageal reflux disease): * change to Protonix 40mg PO daily while inpatient (on hold as above and on pepcid BID) * Stable. (9) Post-surgical hypothyroidism: * for hx papillary thyroid ca * TSH last elevated but no FT4 --> repeat TSH wnl at 2.79 * Continue pork thyroid 90 + 15mg daily for total 105mg daily (10) Bacteremia: * +Bcx as above * Repeat pending -- negative after 48 hours currently * Abx as above (11) DVT prophylaxis: * heparin 7500 q8 Anemia * H/h 9.2/29.5 but has been on IVF and suspect some dilution --> decreased rate now * MCV low normal at 81.3 and added iron studies to AM labs. * Ferritin elevated, likely reactive however iron low at 27 * Will check fecal occult for completeness -- NEGATIVE * TIBC low 150, transferrin 110L c/w anemia of chronic disease however may benefit from some supplementation given likely poor absorption with GI issues? * CBC in AM (IVF have been decreased and patient taking adequate PO) * Repeat pending this afternoon and will continue to monitor Elevated alk phos * Could be some volume overload although appeared euvolemic on examination. IVF since decreased * Alk phos further elevated to 242 from 206 (142 on admission) - could be from GI tract, but normal GB on initial CT imaging * ?medication related, ?Zosyn * INR wnl * Fatty liver on imaging but will add Hep panel to AM labs (negative so far) * RUQ US ordered * Monitor in AM Dispo: continued inpatient stay Admission and Anticipated Discharge Date Admission Date: November 22, 2020 Supervising Physician Co-Signing Physician Notes ALYSSA Supervision Note: I did not personally see or examine the patient today, but I verified all sibley points of ALYSSA Pavon's assessment and plan with the following exceptions/additions: None Subjective Patient evaluated this afternoon. Pain improved but does have some nausea. Abdominal bloating but no real localization of pain. Multiple formed BM. Slightly nauseous after eating - seen by GI and discussion about further eval of gallbladder. Will order RUQ for further eval. ECHO this morning without vegetation however waiting on ID consultation to determine if we will proceed with DEBRA for further eval. IV sites bad and will order PO Zofran until new IV site obtained. Discussed taking it easy on eating -- she states the nausea was after eating khmer toast this morning. No vomiting. Repeat blood cultures negative to growth but did discuss possibility for continued IV abx at discharge. Agreeable to plan. No fever, chills, chest pain, shortness of breath, dysuria at this time. Questions/concerns addressed. Feeling much better after showering. Continued inpatient stay. Review of Systems Review of Systems: All systems reviewed & are unremarkable except as noted in HPI & below Physical Exam Constitutional: WD/WN, vitals as above + obese, cooperative and comfortable; no acute distress (feeling slightly nauseous) Eyes: PERRL, conjunctivae normal, anicteric sclerae ENMT: Ears: no hearing impairment and no external ear abnormality Neck: trachea midline; no tracheal deviation Respiratory: normal respiratory effort, lungs clear to auscultation Auscultation: + diminished lung sounds Cardiovascular: Rate/Rhythm: regular rate and regular rhythm Heart Sounds: normal S1 and normal S2; no murmur Vessels: no JVD Extremities: normal capillary refill and + edema (lymphedema) Gastrointestinal (Abdomen): Inspection/Auscultation: normal bowel sounds; abdomen not distended Percussion/Palpation: + abdomen tender (LLQ slightly on deep palpation, improved), abdomen soft and + tympanic to percussion; no gua rding, abdomen not rigid and no ascites Musculoskeletal: no cyanosis or clubbing, extremities motor strength 5/5 Skin: no rashes, warm and dry Neurologic: patellar DTR's 2+ bilat, sensation intact and PERRL, EOMI, accommodation nl, no face palsy, no dysarthria Psychiatric: Orientation: alert and oriented x 3 Lymphatic: + lymphedema; no lymphadenopathy Results & Data Results & Data ([facility]) Vital Signs (Past 12 Hours) Vital Signs Temp Pulse Pulse Resp BP Pulse Ox 11/25/20 07:53 36.9 C 67 18 101/63 95 11/24/20 22:24 37.3 C 76 16 101/70 95 11/24/20 22:10 84 18 95 Laboratory Results 11/25/20 11/25/20 11/25/20 Range/Units 06:03 06:03 06:03 WBC 8.61 (4.8-10.8) K/uL RBC 3.63 L (4.2-5.4) M/uL Hgb 9.2 L (12.0-16.0) g/dL Hct 29.5 L (37-47) % MCV 81.3 (80-100) fL MCH 25.3 (25-34) pg MCHC 31.2 L (32-36) g/dL RDW Std Deviation 51.9 H (36.4-46.3) fL RDW Coeff of Juanpablo 17.3 H (11.5-14.5) % Plt Count 242 (130-400) K/uL MPV 9.1 (7.4-10.4) fL PT (9.0-12.0) Seconds INR (0.9-1.1) Sodium 141 (136-145) mmol/L Potassium 3.2 L (3.5-5.1) mmol/L Chloride 108 H (98-107) mmol/L Carbon Dioxide 25 (21-32) mmol/L Anion Gap 7.0 (3-11) BUN 16 (7-18) mg/dl Creatinine 1.67 H (0.6-1.2) mg/dl Est Cr Clr Drug Dosing 46.4 ml/min Est GFR ( Amer) 39.5 Est GFR (Non-Af Amer) 34.1 BUN/Creatinine Ratio 9.5 L (10-20) Glucose 89 (70-99) mg/dl Calcium 6.7 L (8.5-10.1) mg/dl Magnesium 2.4 (1.8-2.4) mg/dl Iron (35-150) mcg/dl TIBC (250-450) mcg/dl Transferrin (200-360) mg/dl Transferrin % Sat (15-50) % Ferritin (8-388) ng/ml Total Bilirubin 0.5 (0.2-1) mg/dl Direct Bilirubin Pending AST 23 (15-37) U/L ALT 33 (12-78) U/L Alkaline Phosphatase 242 H (45-117) U/L Total Protein 6.6 (6.4-8.2) gm/dl Albumin 1.9 L (3.4-5.0) gm/dl Globulin (2.5-4.0) gm/dl Albumin/Globulin Ratio (0.9-2) 25-OH Vitamin D Total (30-100) ng/ml TSH (0.300-4.500) uIu/ml Stool Occult Bld Scrn (Negative) Hepatitis A IgM Ab Pending Hep Bs Antigen (Neg) Hep B Core IgM Ab Pending Hepatitis C Antibody (Neg) 11/25/20 11/24/20 11/24/20 Range/Units 06:03 22:50 09:14 WBC (4.8-10.8) K/uL RBC (4.2-5.4) M/uL Hgb (12.0-16.0) g/dL Hct (37-47) % MCV (80-100) fL MCH (25-34) pg MCHC (32-36) g/dL RDW Std Deviation (36.4-46.3) fL RDW Coeff of Juanpablo (11.5-14.5) % Plt Count (130-400) K/uL MPV (7.4-10.4) fL PT 10.5 (9.0-12.0) Seconds INR 1.0 (0.9-1.1) Sodium (136-145) mmol/L Potassium (3.5-5.1) mmol/L Chloride (98-107) mmol/L Carbon Dioxide (21-32) mmol/L Anion Gap (3-11) BUN (7-18) mg/dl Creatinine (0.6-1.2) mg/dl Est Cr Clr Drug Dosing ml/min Est GFR ( Amer) Est GFR (Non-Af Amer) BUN/Creatinine Ratio (10-20) Glucose (70-99) mg/dl Calcium (8.5-10.1) mg/dl Magnesium (1.8-2.4) mg/dl Iron (35-150) mcg/dl TIBC (250-450) mcg/dl Transferrin (200-360) mg/dl Transferrin % Sat (15-50) % Ferritin (8-388) ng/ml Total Bilirubin (0.2-1) mg/dl Direct Bilirubin AST (15-37) U/L ALT (12-78) U/L Alkaline Phosphatase (45-117) U/L Total Protein (6.4-8.2) gm/dl Albumin (3.4-5.0) gm/dl Globulin (2.5-4.0) gm/dl Albumin/Globulin Ratio (0.9-2) 25-OH Vitamin D Total 12.7 L (30-100) ng/ml TSH (0.300-4.500) uIu/ml Stool Occult Bld Scrn Negative (Negative) Hepatitis A IgM Ab Hep Bs Antigen Neg (Neg) Hep B Core IgM Ab Hepatitis C Antibody Neg (Neg) 11/24/20 11/24/20 Range/Units 09:14 08:08 WBC (4.8-10.8) K/uL RBC (4.2-5.4) M/uL Hgb (12.0-16.0) g/dL Hct (37-47) % MCV (80-100) fL MCH (25-34) pg MCHC (32-36) g/dL RDW Std Deviation (36.4-46.3) fL RDW Coeff of Juanpablo (11.5-14.5) % Plt Count (130-400) K/uL MPV (7.4-10.4) fL PT (9.0-12.0) Seconds INR (0.9-1.1) Sodium 138 (136-145) mmol/L Potassium 3.3 L D (3.5-5.1) mmol/L Chloride 107 (98-107) mmol/L Carbon Dioxide 24 (21-32) mmol/L Anion Gap 7.0 (3-11) BUN 19 H (7-18) mg/dl Creatinine 1.87 H (0.6-1.2) mg/dl Est Cr Clr Drug Dosing 41.4 ml/min Est GFR ( Amer) 34.5 Est GFR (Non-Af Amer) 29.7 BUN/Creatinine Ratio 10.2 (10-20) Glucose 105 H (70-99) mg/dl Calcium 6.7 L (8.5-10.1) mg/dl Magnesium 2.4 (1.8-2.4) mg/dl Iron 27 L (35-150) mcg/dl TIBC 150 L (250-450) mcg/dl Transferrin 110 L (200-360) mg/dl Transferrin % Sat 17 (15-50) % Ferritin 644.6 H (8-388) ng/ml Total Bilirubin 0.7 (0.2-1) mg/dl Direct Bilirubin AST 26 (15-37) U/L ALT 35 (12-78) U/L Alkaline Phosphatase 206 H (45-117) U/L Total Protein 7.1 (6.4-8.2) gm/dl Albumin 1.9 L (3.4-5.0) gm/dl Globulin 5.2 H (2.5-4.0) gm/dl Albumin/Globulin Ratio 0.4 L (0.9-2) 25-OH Vitamin D Total (30-100) ng/ml TSH 2.790 (0.300-4.500) uIu/ml Stool Occult Bld Scrn (Negative) Hepatitis A IgM Ab Hep Bs Antigen (Neg) Hep B Core IgM Ab Hepatitis C Antibody (Neg) PG Care Time/CCT Total # of Minutes Spent Total Time Spent with Patient: Total time spent is greater than 50% in coordination of care (as documented) at patient's floor/unit and/or counseling patient: Coding Level of Care Code 41891 Subseq Hosp Care Lvl 3 Diagnoses Sigmoid diverticulitis K57.32 Sepsis A41.9 Sepsis acute organ dysfunction status: unspecified Sepsis type: sepsis due to unspecified organism Hypokalemia E87.6 Acute kidney injury N17.9 Chronic kidney disease, stage III (moderate) N18.3 Hypertension I10 Vitamin D deficiency E55.9 GERD (gastroesophageal reflux disease) K21.9 Esophagitis presence: without esophagitis Post-surgical hypothyroidism E89.0 Bacteremia R78.81 DVT prophylaxis Z29.9 (1) Sepsis Sepsis acute organ dysfunction status: unspecified Sepsis type: sepsis due to unspecified organism Qualified Code(s): A41.9 - Sepsis, unspecified organism (2) GERD (gastroesophageal reflux disease) Esophagitis presence: without esophagitis Qualified Code(s): K21.9 - Gastro- esophageal reflux disease without esophagitis
[2020-11-25] MEDS: CALCITRIOL 0.25 MCG CAPSULE PO SCH (09:07)
[2020-11-25] MEDS: FAMOTIDINE 20 MG in SYRINGE 3 ML IV SCH (09:08)
[2020-11-25 10:16] LABS: Bilirubin Direct 0.2 mg/dl (0-0.2)
--- NOTE | 2020-11-25 10:16 | Gastrointestinal Consultation ---
Date of Consultation November 25, 2020 Assessment & Plan (1) Sigmoid diverticulitis: -Continue IV Zosyn. Follow blood cultures. Anticipate longer duration of antibiotics given bacteremia. -Continue to monitor CBC, CMP. -Continue with low residue diet. -Would avoid fiber supplementation during acute diverticulitis. -If needed, consider Miralax 1-2 times daily to encourage routine bowel movements. -Proceed with colorectal surgery follow-up appointment as scheduled for December. Timing of resection to be determined during that visit. -Supportive care per primary team. Thank you for allowing us to participate in the care of this patient. We will sign off at this time. If there are further questions or concerns, do not hesitate to contact us at extension [phone] or [phone]. Supervising Physician Co-Signing Physician Notes Agree with ZAC Reed as above Abd: Soft, tender LLQ, ND, +BS Continue current therapy Scheduled to have partial colectomy with Dr. Irizarry of [facility] [place] Colorectal surgery History of Present Illness Reason for Consultation: Diverticulitis Attending Physician: Azra Guerrero MD History of Present Illness Patient is a 55 yo female with a PMH of recurrent diverticulitis, CKD, HTN, GERD, sleep apnea, and history of thyroid cancer who is currently hospitalized with sigmoid diverticulitis as noted on CT scan. The patient's symptoms began on 11/21/19. She was advised based on her history to seek ED evaluation. 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 She has been evaluated by Dr. Irizarry of [facility]. There are plans for surgical intervention. Last colonoscopy was this month and indicated a poor prep, diverticulosis & hemorrhoids. Unfortunately it does seem as though patient has struggled with constipation triggering episodes of diverticulitis in the past. Her WBC is currently within normal limits. She is currently afebrile. She is bacteremic, with blood cultures growing out gram positive cocci in chains. She is currently on IV Zosyn. Her symptoms are improving. She notes some abdominal pain after eating. She is currently advanced to a low residue diet at this point. Allergies Allergy/AdvReac Type Severity Reaction Status Date / Time metronidazole Allergy Unknown Vomiting Verified 11/12/20 11:14 Home Medications Medication Instructions Recorded Confirmed Type acetaminophen 500 mg capsule 1,000 mg PO UD PRN cap 07/08/19 11/22/20 History omeprazole magnesium 20 mg 20 mg PO QPM 08/09/19 11/22/20 History tablet,delayed release Probiotic 3,000 mmu cells PO QDL 09/06/19 11/22/20 History torsemide 10 mg tablet 10 mg PO QAM #90 tab 09/10/20 11/22/20 Rx Systane (PF) 1 drp OPHTHALMIC (EYE) BID 11/02/20 11/22/20 History thyroid (pork) 15 mg tablet 15 mg PO DAILY #90 tab 11/02/20 11/22/20 Rx thyroid (pork) [[place]ogg Thyroid] 90 mg PO QAM 11/02/20 11/22/20 History Patient History Medical History Abnormal CT of the abdomen 09/2020 "Question developing fistulous tract between the sigmoid colon and an adjacent loop of small bowel" Change in bowel habits Diverticulosis GERD (gastroesophageal reflux disease) Hiatal hernia Hx of renal cell cancer LEFT 2010, treated surgically Hx of thyroid cancer 2012 surgery/radiation Lymphedema of both lower extremities Morbid obesity with BMI of 45.0-49.9, adult Post-surgical hypothyroidism Rectal pain Sleep apnea Uterine fibroid Surgical History History of bilateral breast reduction surgery History of biopsy left kidney--malignant History of colonoscopy History of dilatation and curettage History of endometrial ablation History of esophagogastroduodenoscopy (EGD) History of left nephrectomy History of root canal procedure History of thyroidectomy, total 2012 x2--thyroid cancer History of wisdom tooth extraction Family History Grandmother (Maternal) Family history of pseudocholinesterase deficiency "allergy to anectine--paralyzed for a day or so" Diabetes Mother Cancer Obstructive sleep apnea Arthritis Father Cancer COPD (chronic obstructive pulmonary disease) Uncle Stroke Myocardial infarction Grandfather No problems noted. Grandfather (Maternal) Diabetes Parkinson disease Grandmother (Paternal) Stroke syndrome Hypertension Sister FH: migraine headache Aneurysm of ophthalmic artery Family/Other Multiple sclerosis cousin Grandfather (Paternal) Heart murmur Other Heart disease Malignant melanoma Prostate cancer Denies family history of Ovarian cancer Renal cell carcinoma Breast cancer Uterine cancer Social History Smoking Status: Never smoker Second Hand Exposure: Yes (as a child); Do You Dip or Chew Tobacco: No; Hx Alcohol Use: No Hx Substance Use: No Preferred Language: Mohawk Communication Ability: Effective Image Editor Required: No Beliefs That Will Affect Care: None marital status: Single Current Living Situation: Alone current occupational status: employed 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 Other Information That Helps Us Care for You: No Feels Safe at Home: Yes Safety Concerns: Feels Safe At This Time Assistive Devices: Cane, Glasses and Oxygen - at Night Review of Systems Constitutional: no fever and no chills Respiratory: no cough and no dyspnea Cardiovascular: no chest pain Gastrointestinal: no abdominal pain, no change in bowel habits and no blood in stools Physical Exam Constitutional: WD/WN, vitals as above Neck: normal visual inspection Respiratory: normal respiratory effort Cardiovascular: Extremities: no edema Gastrointestinal (Abdomen): Inspection/Auscultation: abdomen normal to inspection; abdomen not distended Percussion/Palpation: abdomen soft Musculoskeletal: Head/Neck/Chest: normocephalic Skin: no rashes Neurologic: Speech / Cognition: normal speech Psychiatric: A+Ox3, euthymic affect Results & Data ([facility]) Vital Signs (Past 12 Hours) Vital Signs Temp Pulse Resp BP Pulse Ox 11/25/20 07:53 36.9 C 67 18 101/63 95 11/24/20 22:24 37.3 C 76 16 101/70 95 PG Care Time/CCT Total # of Minutes Spent Total Time Spent with Patient: Total time spent is greater than 50% in coordination of care (as documented) at patient's floor/unit and/or counseling patient: Coding Level of Care Code 88058 Inpt Consult Level 4 Diagnoses Sigmoid diverticulitis K57.32
--- NOTE | 2020-11-25 10:36 | XCELERA ---
[id number]
[2020-11-25] MEDS: POTASSIUM CHLORIDE 20 MEQ in NORMOSOL-R 1,000 ML IV SCH (11:54)
[2020-11-25] MEDS ORDERED: ONDANSETRON 4 MG OD TAB PO PRN (13:14)
[2020-11-25] MEDS ORDERED: Nursing to Pharmacy Communication SCH (15:15)
[2020-11-25 16:02] LABS: Hematocrit (blood only) 29.3 % (37-47); Hemoglobin 9.4 g/dL (12.0-16.0); Mean Corpuscular Hemoglobin 25.8 pg (25-34); Mean Corpuscular Hgb Conc 32.1 g/dL (32-36); Mean Corpuscular Volume 80.3 fL (80-100); Mean Platelet Volume 9.4 fL (7.4-10.4); Platelet Count 313 K/uL (130-400); RDW Coefficient of Variation 17.5 % (11.5-14.5); RDW Standard Deviation 51.8 fL (36.4-46.3); Red Blood Count 3.65 M/uL (4.2-5.4); White Blood Count 10.16 K/uL (4.8-10.8)
[2020-11-25 16:19] LABS: Albumin Level 1.9 gm/dl (3.4-5.0); BUN Creatinine Ratio 8.9 (10-20); Calcium 7.4 mg/dl (8.5-10.1); Creatinine Clr Calc Pharmacy 48.7 ml/min; Est GFR (African American) 41.9; Est GFR (Non-African American) 36.2; Potassium 3.5 mmol/L (3.5-5.1)
[2020-11-25 16:22] LABS: Albumin Globulin Ratio 0.4 (0.9-2); Bilirubin,Total 0.4 mg/dl (0.2-1); Globulin 4.9 gm/dl (2.5-4.0); Total Protein 6.8 gm/dl (6.4-8.2)
[2020-11-25] MEDS ORDERED: PIPERACILL/TAZOBAC CONSULT ACTIVE PRN (16:26)
--- NOTE | 2020-11-25 18:39 | Ultrasound Report ---
US gallbladder CLINICAL HISTORY: Biliary colic COMPARISON STUDY: CT scan dated 11/22/2020 FINDINGS: There is hepatic steatosis. No focal hepatic masses are visualized. There is no ductal dilatation. Th ere is mild hepatic enlargement. The pancreas was poorly visualized. There is no ductal dilatation. The common bile duct measured 4 mm. The gallbladder wall is the upper limits of normal thickness. No discrete calculi were visualized. Th ere are comet tail artifacts in the region the gallbladder fundus possibly representing adenomyomatos is. There is no right-sided hydronephrosis. There is a 5 cm right renal cyst. IMPRESSION: 1. No gallstones identified. Suspected mild adenomyomatosis 2. Nondiagnostic evaluation the pancreas 3. Hepatic steatosis 4. No ductal dilatation 5. 5 cm right renal cyst ACT 112: Negative or not required by law. Electronically signed by: Nahid Phillips M.D. 11/25/2020 6:38 PM
[2020-11-25] MEDS: ACETAMINOPHEN 325 MG TAB PO PRN (18:43)
[2020-11-25] MEDS ORDERED: ERTAPENEM SODIUM 1,000 MG in SODIUM CHLORIDE 0.9% 50 ML IV SCH (20:00)
[2020-11-26] MEDS: POTASSIUM CHLORIDE 20 MEQ in NORMOSOL-R 1,000 ML IV SCH ×2 (00:35→16:08)
[2020-11-26 03:37] LABS: Hepatitis A Antibody IgM NON-REACTIVE (NON-REACTIVE); Hepatitis B Core Antibody IgM NON-REACTIVE (NON-REACTIVE)
[2020-11-26] MEDS: PIPERACILLIN/TAZOBACTAM 4.5 GM in DEXTROSE 5% 100 ML IV SCH ×3 (04:45→20:50)
[2020-11-26] MEDS: ARMOUR THYROID 30 MG TAB PO SCH (05:09)
[2020-11-26] MEDS: HEPARIN SOD 5,000 UNIT/0.5 ML VIAL SQ SCH ×3 (05:10→21:02)
[2020-11-26 05:43] LABS: Basophils # (auto) 0.01 K/uL (0-0.2); Basophils % (auto) 0.1 %; Eosinophils # (auto) 0.03 K/uL (0-0.5); Eosinophils % (auto) 0.4 %; Hematocrit (blood only) 27.1 % (37-47); Hemoglobin 8.6 g/dL (12.0-16.0); Immature Granulocytes # (auto) 0.14 K/uL (0.00-0.02); Immature Granulocytes % (auto) 1.9 %; Lymphocytes # (auto) 0.64 K/uL (1.2-3.4); Lymphocytes % (auto) 8.5 %; Mean Corpuscular Hemoglobin 25.7 pg (25-34); Mean Corpuscular Hgb Conc 31.7 g/dL (32-36); Mean Corpuscular Volume 81.1 fL (80-100); Mean Platelet Volume 9.1 fL (7.4-10.4); Monocytes # (auto) 0.54 K/uL (0.11-0.59); Monocytes % (auto) 7.2 %; Neutrophils # (auto) 6.18 K/uL (1.4-6.5); Neutrophils % (auto) 81.9 %; Platelet Count 331 K/uL (130-400); RDW Coefficient of Variation 17.6 % (11.5-14.5); RDW Standard Deviation 52.8 fL (36.4-46.3); Red Blood Count 3.34 M/uL (4.2-5.4); White Blood Count 7.54 K/uL (4.8-10.8)
[2020-11-26 06:11] LABS: Albumin Level 1.8 gm/dl (3.4-5.0); BUN Creatinine Ratio 7.4 (10-20); Creatinine Clr Calc Pharmacy 48.1 ml/min; Est GFR (African American) 41.3; Est GFR (Non-African American) 35.6; Magnesium 2.3 mg/dl (1.8-2.4); Potassium 3.7 mmol/L (3.5-5.1)
[2020-11-26 06:14] LABS: Albumin Globulin Ratio 0.4 (0.9-2); Bilirubin,Total 0.4 mg/dl (0.2-1); Globulin 4.7 gm/dl (2.5-4.0); Total Protein 6.5 gm/dl (6.4-8.2)
[2020-11-26 06:34] LABS: Lyme Ab IgG w/WB Rflx Negative (Negative); Lyme Ab IgM w/WB Rflx Negative (Negative)
--- NOTE | 2020-11-26 08:08 | Hospitalist Progress Note ---
Date of Service November 26, 2020 Assessment & Plan (1) Sigmoid diverticulitis: * Sepsis POA -- acute LLQ pain, WBC 14k, tachycardia * CT a/p with evidence of acute sigmoid diverticulitis * Continue IV Zosyn (day 5 of therapy) * Will discontinue IVF today -- was NPO for DEBRA and previously decreased to 75cc/hr. * Pepcid IV BID as holding protonix -- no further reflux/belching * Alk phos continues to be elevated --?GI source. US Gallbladder which upper limit wall thickness but no s/sx acute yelitza. No further imaging * LDH also elevated -- will add GGT * Retic not elevated (will ask nephro about EPO vs iron supp) with h/h 8.6/27.1 -- no hematuria/melena/hematochezia/BRBPR on toilet paper --> Will confer with nephro about possible EPO injection? * WBC wnl, no further fevers. * GI on consult -- rec f/u with [facility] colorectal outpt * Initially with strep intermedius from 11/22, repeat BCx x 2 NGTD - continue to monitor Continue electrolyte replacement as needed --> giving addditional 1gm IV calcium gluconate today for Ca 7, correct 8.4. Continuing calcitriol and would benefit from oral Vit D supplementation for level 12.7 --> As mentioned will confer with Nephrology as patient with 1 kidney secondary to renal ca s/p nephrectomy TTE not great quality but no vegetations seen ID consulted NPO for now for DEBRA but will give low fat/low fiber diet once completed If DEBRA negative, consider Augmentin for 2 weeks. If positive would give 6 wks IV Rocephin as bacteremia not likely from anaerobic bacteria Considerations for Ertapenem IV while inpatient however patient continued to make improvement on Zosyn and we are hopeful for d/c on Augmentin PO. --> If needs IV abx she would like to come to [facility] as no one at home to assist and she would be more comfortable coming in to [facility]. CM following -- to give abx recs tomorrow after results from DEBRA To follow up with Dr. Irizarry from [facility] for sigmoidectomy --> to be seen in December. Previously was just contemplating but at this point, strongly encouraged procedure at this time (2) Sepsis: * mild sepsis POA with WBC 14k, tachycardic, temp 37.6 * treat with IV fluids and Zosyn IV * already better * no evidence of shock (3) Hypokalemia: * Low on multiple draws -- replacement with PO and placed in IV * Repeat continues to be stable, 3.5 and 3.7 on repeat * ??Consider addition of spironolactone given fatty liver/hepatosplenomegaly and continued low K. 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 Gauthier. Of note, also with hypocalcemia/vitamin D deficiency but states she has not been on replacement for years. * Will resume torsemide today -- weight up to 123.4k from 117.8kg standing scale from 11/22 * No shortness of breath reported or l/e edema. Abd obese but no increased fullness. No further nausea either. No JVD noted. ECHO performed prior without evidence of systolic dysfunction * Consider nephro consult while inpatient given continued anemia/hypocalcemia/vit d deficiency and self reported not on replacement in several years * IV calcium today as well as 11/25 * Labs in AM (6) Hypertension: * BP 132/78 * Resumed torsemide as above * Continue to monitor (7) Vitamin D deficiency: * Low at 28 August 2020 -- not on replacement currently but would discuss with patient prior to d/c and possible start. She states she had been on replacement in the past but has not been on for years * Repeat 12.7 low--> ordered calcitriol and 2gm IV calcium for low calcium --> Needs continued replacement at discharge * Repeating labs this afternoon. (8) GERD (gastroesophageal reflux disease): * change to Protonix 40mg PO daily while inpatient (on hold as above and on pepcid BID) * Stable. (9) Post-surgical hypothyroidism: * for hx papillary thyroid ca * TSH last elevated but no FT4 --> repeat TSH wnl at 2.79 * Continue pork thyroid 90 + 15mg daily for total 105mg daily (10) Bacteremia: * +Bcx as above * Repeat pending -- negative after 48 hours currently * Abx as above (11) DVT prophylaxis: * heparin 7500 q8 Anemia * MCV low normal at 81.3 and added iron studies to AM labs. * Ferritin elevated, likely reactive however iron low at 27 * Will check fecal occult for completeness -- NEGATIVE * TIBC low 150, transferrin 110L c/w anemia of chronic disease however may benefit from some supplementation given likely poor absorption with GI issues? * Repeat CBC with increase last evening but decreased again today -- on continuous IVF which will be d/c today * No obv signs of bleeding at this time * Will d/c fluids and check CBC in AM * LDH elevated, Retic not -- ?need for EPO/nephro Elevated alk phos * Could be some volume overload although appeared euvolemic on examination. IVF since decreased * Alk phos further elevated to 270 but decreased from 289 (142 on admission) - could be from GI tract, but normal GB on initial CT imaging * ?Hepatic congestion from elevated weights? Stable on RA. No edema. No abd fullness * Torsemide resumed as above * GGT to AM labs * INR wnl * Fatty liver on imaging but will add Hep panel to AM labs --> NEGATIVE * RUQ US ordered -- upper limits normal wall thickening, adenomyomatosis but no acute yelitza or obstructing stones/ductal dilatation * Monitor in AM Dispo: continued inpatient stay NPO for TTE currently hopeful for d/c in next 24-48 hours Admission and Anticipated Discharge Date Admission Date: November 22, 2020 Supervising Physician Co-Signing Physician Notes ALYSSA Supervision Note: I did not personally see or examine the patient today, but I verified all sibley points of ALYSSA Pavon's assessment and plan with the following exceptions/additions: In regards to her hypocalcemia, this is improving with replacement. She has a history of total thyroidectomy with parathyroid tissue as per endocrinology note. Her intact PTH here is inappropriately low considering her hypocalcemia and her CKD stage III. She likely has some degree of hypoparathyroidism. Continue to follow-up with endocrinology Starting calcitriol, vitamin D, and calcium p.o. supplementation Check phosphorus level in the morning as well Otherwise plan outlined as above Subjective Patient evaluated this morning. Slightly nervous about undergoing DEBRA but reassured we were waiting for anesthesia to make sure she is comfortable. No abdominal pain reported today --- she states she believes the Zosyn has been doing wonders. Continues to have bowel movements. No liquid, slightly soft with "hyacinth". No blood. No hemorrhoidal bleeding or hematuria. No further nausea. No vomiting. NPO for DEBRA. Discussed if negative we would be able to switch her to PO at discharge. Happy with that plan. If positive will need IV x 6 weeks and she would prefer to come to [facility] in that event. She plans on follow up with Dr. Irizarry for discussion for sigmoidectomy. Given repeat episodes thankfully without abscess currently (she did have perf 2019) would strongly encourage following through that. No fever, chills, chest pain, shortness of breath. Edema chronic lymphedema. No increased abdominal fullness but weight up from admission. Will resume torsemide after DBERA for fluid management. Discussed low calcium and replacement. Would discuss with Dr. Gauthier about adding possible EPO for anemia. Questions/concerns addressed at this time. Hopeful for d/c in next 24-48 hours. Review of Systems Review of Systems: All systems reviewed & are unremarkable except as noted in HPI & below Physical Exam Constitutional: WD/WN, vitals as above + obese, cooperative and comfortable; no acute distress (sitting up in chair at window, general pallor) Eyes: + anicteric sclerae and PERRL ENMT: Ears: no hearing impairment and no external ear abnormality Neck: trachea midline; no tracheal deviation Respiratory: normal respiratory effort; no respiratory distress, no labored breathing, does not use accessory muscles and no cough Auscultation: + diminished lung sounds; no crackles and no wheezes Cardiovascular: Rate/Rhythm: regular rate and regular rhythm Heart Sounds: normal S1 and normal S2; no murmur Vessels: no JVD Extremities: normal capillary refill and + edema (lymphedema, at baseline) Gastrointestinal (Abdomen): Inspection/Auscultation: normal bowel sounds; abdomen not distended Percussion/Palpation: abdomen soft; abdomen nontender, no guarding, abdomen not rigid and no ascites Musculoskeletal: no cyanosis or clubbing, extremities motor strength 5/5 Skin: warm, dry Neurologic: patellar DTR's 2+ bilat, sensation intact and PERRL, EOMI, accommodation nl, no face palsy, no dysarthria Psychiatric: Orientation: alert and oriented x 3 Lymphatic: + lymphedema; no lymphadenopathy Results & Data Results & Data ([facility]) Vital Signs (Past 12 Hours) Vital Signs Temp Pulse Resp BP Pulse Ox 11/26/20 07:07 36.8 C 68 16 117/79 98 11/25/20 22:47 36.3 C L 16 90/61 L 95 11/25/20 20:20 36.8 C 80 16 138/84 93 Laboratory Results 11/26/20 11/26/20 11/26/20 Range/Units 05:31 05:31 05:31 WBC (4.8-10.8) K/uL RBC (4.2-5.4) M/uL Hgb (12.0-16.0) g/dL Hct (37-47) % MCV (80-100) fL MCH (25-34) pg MCHC (32-36) g/dL RDW Std Deviation (36.4-46.3) fL RDW Coeff of Juanpablo (11.5-14.5) % Plt Count (130-400) K/uL MPV (7.4-10.4) fL Immature Gran % (Auto) % Neut % (Auto) % Lymph % (Auto) % [place] % (Auto) % Eos % (Auto) % Baso % (Auto) % Neut # (Auto) (1.4-6.5) K/uL Lymph # (Auto) (1.2-3.4) K/uL [place] # (Auto) (0.11-0.59) K/uL Eos # (Auto) (0-0.5) K/uL Baso # (Auto) (0-0.2) K/uL Immature Gran # (Auto) (0.00-0.02) K/uL Sodium 142 (136-145) mmol/L Potassium 3.7 (3.5-5.1) mmol/L Chloride 111 H (98-107) mmol/L Carbon Dioxide 26 (21-32) mmol/L Anion Gap 5.0 (3-11) BUN 12 (7-18) mg/dl Creatinine 1.61 H (0.6-1.2) mg/dl Est Cr Clr Drug Dosing 48.1 ml/min Est GFR ( Amer) 41.3 Est GFR (Non-Af Amer) 35.6 BUN/Creatinine Ratio 7.4 L (10-20) Glucose 91 (70-99) mg/dl Calcium 7.0 L (8.5-10.1) mg/dl Magnesium 2.3 (1.8-2.4) mg/dl Total Bilirubin 0.4 (0.2-1) mg/dl Direct Bilirubin (0-0.2) mg/dl AST 25 (15-37) U/L ALT 36 (12-78) U/L Alkaline Phosphatase 270 H (45-117) U/L C-Reactive Protein 11.00 H (0-0.29) mg/dl Total Protein 6.5 (6.4-8.2) gm/dl Albumin 1.8 L (3.4-5.0) gm/dl Globulin 4.7 H (2.5-4.0) gm/dl Albumin/Globulin Ratio 0.4 L (0.9-2) PTH Intact 31.8 (18.4-80.1) pg/ml Lyme Disease IgG Ab Negative (Negative) Lyme Disease IgM Ab Negative (Negative) Hepatitis A IgM Ab (NON-REACTIVE) Hep B Core IgM Ab (NON-REACTIVE) 11/26/20 11/25/20 11/25/20 Range/Units 05:31 15:52 15:52 WBC 7.54 10.16 (4.8-10.8) K/uL RBC 3.34 L 3.65 L (4.2-5.4) M/uL Hgb 8.6 L 9.4 L (12.0-16.0) g/dL Hct 27.1 L 29.3 L (37-47) % MCV 81.1 80.3 (80-100) fL MCH 25.7 25.8 (25-34) pg MCHC 31.7 L 32.1 (32-36) g/dL RDW Std Deviation 52.8 H 51.8 H (36.4-46.3) fL RDW Coeff of Juanpablo 17.6 H 17.5 H (11.5-14.5) % Plt Count 331 313 (130-400) K/uL MPV 9.1 9.4 (7.4-10.4) fL Immature Gran % (Auto) 1.9 % Neut % (Auto) 81.9 % Lymph % (Auto) 8.5 % [place] % (Auto) 7.2 % Eos % (Auto) 0.4 % Baso % (Auto) 0.1 % Neut # (Auto) 6.18 (1.4-6.5) K/uL Lymph # (Auto) 0.64 L (1.2-3.4) K/uL [place] # (Auto) 0.54 (0.11-0.59) K/uL Eos # (Auto) 0.03 (0-0.5) K/uL Baso # (Auto) 0.01 (0-0.2) K/uL Immature Gran # (Auto) 0.14 H (0.00-0.02) K/uL Sodium 139 (136-145) mmol/L Potassium 3.5 (3.5-5.1) mmol/L Chloride 108 H (98-107) mmol/L Carbon Dioxide 25 (21-32) mmol/L Anion Gap 6.0 (3-11) BUN 14 (7-18) mg/dl Creatinine 1.59 H (0.6-1.2) mg/dl Est Cr Clr Drug Dosing 48.7 ml/min Est GFR ( Amer) 41.9 Est GFR (Non-Af Amer) 36.2 BUN/Creatinine Ratio 8.9 L (10-20) Glucose 101 H (70-99) mg/dl Calcium 7.4 L (8.5-10.1) mg/dl Magnesium (1.8-2.4) mg/dl Total Bilirubin 0.4 (0.2-1) mg/dl Direct Bilirubin (0-0.2) mg/dl AST 25 (15-37) U/L ALT 36 (12-78) U/L Alkaline Phosphatase 289 H (45-117) U/L C-Reactive Protein (0-0.29) mg/dl Total Protein 6.8 (6.4-8.2) gm/dl Albumin 1.9 L (3.4-5.0) gm/dl Globulin 4.9 H (2.5-4.0) gm/dl Albumin/Globulin Ratio 0.4 L (0.9-2) PTH Intact (18.4-80.1) pg/ml Lyme Disease IgG Ab (Negative) Lyme Disease IgM Ab (Negative) Hepatitis A IgM Ab (NON-REACTIVE) Hep B Core IgM Ab (NON-REACTIVE) 11/25/20 11/25/20 Range/Units 06:03 06:03 WBC (4.8-10.8) K/uL RBC (4.2-5.4) M/uL Hgb (12.0-16.0) g/dL Hct (37-47) % MCV (80-100) fL MCH (25-34) pg MCHC (32-36) g/dL RDW Std Deviation (36.4-46.3) fL RDW Coeff of Juanpablo (11.5-14.5) % Plt Count (130-400) K/uL MPV (7.4-10.4) fL Immature Gran % (Auto) % Neut % (Auto) % Lymph % (Auto) % [place] % (Auto) % Eos % (Auto) % Baso % (Auto) % Neut # (Auto) (1.4-6.5) K/uL Lymph # (Auto) (1.2-3.4) K/uL [place] # (Auto) (0.11-0.59) K/uL Eos # (Auto) (0-0.5) K/uL Baso # (Auto) (0-0.2) K/uL Immature Gran # (Auto) (0.00-0.02) K/uL Sodium (136-145) mmol/L Potassium (3.5-5.1) mmol/L Chloride (98-107) mmol/L Carbon Dioxide (21-32) mmol/L Anion Gap (3-11) BUN (7-18) mg/dl Creatinine (0.6-1.2) mg/dl Est Cr Clr Drug Dosing ml/min Est GFR ( Amer) Est GFR (Non-Af Amer) BUN/Creatinine Ratio (10-20) Glucose (70-99) mg/dl Calcium (8.5-10.1) mg/dl Magnesium (1.8-2.4) mg/dl Total Bilirubin (0.2-1) mg/dl Direct Bilirubin 0.2 D (0-0.2) mg/dl AST (15-37) U/L ALT (12-78) U/L Alkaline Phosphatase (45-117) U/L C-Reactive Protein (0-0.29) mg/dl Total Protein (6.4-8.2) gm/dl Albumin (3.4-5.0) gm/dl Globulin (2.5-4.0) gm/dl Albumin/Globulin Ratio (0.9-2) PTH Intact (18.4-80.1) pg/ml Lyme Disease IgG Ab (Negative) Lyme Disease IgM Ab (Negative) Hepatitis A IgM Ab NON-REACTIVE (NON-REACTIVE) Hep B Core IgM Ab NON-REACTIVE (NON-REACTIVE) Diagnostic Findings US gallbladder CLINICAL HISTORY: Biliary colic COMPARISON STUDY: CT scan dated 11/22/2020 FINDINGS: There is hepatic steatosis. No focal hepatic masses are visualized. There is no ductal dilatation. There is mild hepatic enlargement. The pancreas was poorly visualized. There is no ductal dilatation. The common bile duct measured 4 mm. The gallbladder wall is the upper limits of normal thickness. No discrete calculi were visualized. There are comet tail artifacts in the region the gallbladder fundus possibly representing adenomyomatosis. There is no right-sided hydronephrosis. There is a 5 cm right renal cyst. IMPRESSION: 1. No gallstones identified. Suspected mild adenomyomatosis 2. Nondiagnostic evaluation the pancreas 3. Hepatic steatosis 4. No ductal dilatation 5. 5 cm right renal cyst PG Care Time/CCT Total # of Minutes Spent Total Time Spent with Patient: Total time spent is greater than 50% in coordination of care (as documented) at patient's floor/unit and/or counseling patient: Coding Level of Care Code 23977 Subseq Hosp Care Lvl 3 Diagnoses Sigmoid diverticulitis K57.32 Sepsis A41.9 Sepsis acute organ dysfunction status: unspecified Sepsis type: sepsis due to unspecified organism Hypokalemia E87.6 Acute kidney injury N17.9 Chronic kidney disease, stage III (moderate) N18.3 Hypertension I10 Vitamin D deficiency E55.9 GERD (gastroesophageal reflux disease) K21.9 Esophagitis presence: without esophagitis Post-surgical hypothyroidism E89.0 Bacteremia R78.81 DVT prophylaxis Z29.9 (1) Sepsis Sepsis acute organ dysfunction status: unspecified Sepsis type: sepsis due to unspecified organism Qualified Code(s): A41.9 - Sepsis, unspecified organism (2) GERD (gastroesophageal reflux disease) Esophagitis presence: without esophagitis Qualified Code(s): K21.9 - Gastro-esophageal reflux disease without esophagitis
[2020-11-26] MEDS ORDERED: CALCIUM GLUCONATE 10% 1,000 MG in SODIUM CHLORIDE 0.9% 50 ML IV ONE (08:30)
[2020-11-26 08:44] LABS: Reticulocyte % 0.5 % (0.5-2.0); Reticulocytes # 0.02 10^6/uL (0.02-0.10)
[2020-11-26] MEDS: FAMOTIDINE 20 MG in SYRINGE 3 ML IV SCH (09:14)
[2020-11-26] MEDS ORDERED: fentaNYL citrate 100 MCG/2 ML VIAL ONE ×2 (14:12→14:50)
[2020-11-26] MEDS ORDERED: MIDAZOLAM HCL 1 MG/ML 2ML VIAL ONE ×2 (14:12→14:50)
[2020-11-26] MEDS ORDERED: CANNULA ONE (14:30)
--- NOTE | 2020-11-26 14:33 | Pre Anesthesia Assessment ---
Date of Service November 26, 2020 Pre Sedation Assessment Vital Signs Temp Pulse Resp BP Pulse Ox 11/26/20 07:07 36.8 C 68 16 117/79 98 11/25/20 22:47 36.3 C L 16 90/61 L 95 11/25/20 20:20 36.8 C 80 16 138/84 93 11/25/20 16:00 37.7 C H 83 18 111/76 100 Cardiovascular + regular rate Respiratory + respiratory effort normal Pre-Sedation Airway Assessment Smoking Status: Never smoker Hx Sleep Apnea: Yes Hx Difficult Intubation: No Short, Thick Neck: No Thyromental Distance: > or= 3.5 Finger Breadths Oral Cavity: + Dental Abnormalities Mallampati Class: III ASA: ASA2 Procedure Planning Contraindications for Sedation: none Current Medications Reviewed: Yes Notes The planned sedation has been discussed with the patient. Informed Consent was obtained. I have identified the patient, determined the appropriateness of sedation and have assessed the patient immediately prior to the procedure. All medicine(s) and interventions are by my order.
[2020-11-26] MEDS ORDERED: ERGOCALCIFEROL 50,000 UNITS 1250 MCG CAP PO SCH (15:45)
[2020-11-26] MEDS ORDERED: TORSEMIDE 10 MG TAB PO ONE (16:00)
[2020-11-26] MEDS ORDERED: IRON SUCROSE 300 MG in SODIUM CHLORIDE 0.9% 250 ML IV SCH (16:00)
[2020-11-26] MEDS: POLYETHYLENE (MIRALAX) 17 GM PACK PO SCH (16:50)
[2020-11-26] MEDS: CALCITRIOL 0.25 MCG CAPSULE PO SCH (16:51)
--- NOTE | 2020-11-26 17:07 | XCELERA ---
[id number] \\[id number]_[id number]
[2020-11-26] MEDS: CALCIUM 600MG + VIT D 400 IU TAB PO SCH (20:52)
[2020-11-27 05:49] LABS: Hematocrit (blood only) 29.5 % (37-47); Hemoglobin 9.1 g/dL (12.0-16.0); Mean Corpuscular Hemoglobin 25.3 pg (25-34); Mean Corpuscular Hgb Conc 30.8 g/dL (32-36); Mean Corpuscular Volume 81.9 fL (80-100); Mean Platelet Volume 9.3 fL (7.4-10.4); Platelet Count 359 K/uL (130-400); RDW Coefficient of Variation 17.6 % (11.5-14.5); RDW Standard Deviation 52.9 fL (36.4-46.3); White Blood Count 7.98 K/uL (4.8-10.8)
[2020-11-27] MEDS: PIPERACILLIN/TAZOBACTAM 4.5 GM in DEXTROSE 5% 100 ML IV SCH (05:53)
[2020-11-27] MEDS: HEPARIN SOD 5,000 UNIT/0.5 ML VIAL SQ SCH ×2 (05:54→14:12)
[2020-11-27] MEDS: ARMOUR THYROID 30 MG TAB PO SCH (05:54)
[2020-11-27 06:26] LABS: Albumin Level 1.8 gm/dl (3.4-5.0); BUN Creatinine Ratio 11.2 (10-20); Bilirubin,Total 0.3 mg/dl (0.2-1); C Reactive Protein 9.02 mg/dl (0-0.29); Calcium 7.2 mg/dl (8.5-10.1); Creatinine Clr Calc Pharmacy 46.3 ml/min; Est GFR (African American) 38.1; Est GFR (Non-African American) 32.9; Phosphorus 4.9 mg/dl (2.5-4.9); Potassium 3.9 mmol/L (3.5-5.1); Total Protein 6.6 gm/dl (6.4-8.2)
[2020-11-27] MEDS: ACETAMINOPHEN 325 MG TAB PO PRN (06:53)
[2020-11-27] MEDS ORDERED: COUGH DROP (SUGAR FREE) LOZ 24 LOZ/1 BOX BUCCAL ONE (07:23)
[2020-11-27] MEDS ORDERED: COUGH DROP (SUGAR FREE) LOZ 24 LOZ/1 BOX BUCCAL PRN (07:25)
[2020-11-27] MEDS ORDERED: FERROUS SULFATE 325 MG TAB PO SCH (09:00)
[2020-11-27] MEDS: POLYETHYLENE (MIRALAX) 17 GM PACK PO SCH (09:10)
[2020-11-27] MEDS: CALCIUM 600MG + VIT D 400 IU TAB PO SCH (09:10)
--- NOTE | 2020-11-27 09:31 | Hospitalist Progress Note ---
Date of Service November 27, 2020 Assessment & Plan Admission and Anticipated Discharge Date Admission Date: November 22, 2020 Results & Data Results & Data ([facility]) Vital Signs (Past 12 Hours) Vital Signs Temp Pulse Pulse Resp BP Pulse Ox 11/27/20 07:17 36.7 C 57 L 16 122/81 91 11/27/20 03:43 68 20 95 11/26/20 23:57 74 16 96 11/26/20 22:19 36.7 C 71 18 135/84 91 Laboratory Results 11/27/20 11/27/20 11/27/20 Range/Units 09:08 05:17 05:17 WBC 7.98 (4.8-10.8) K/uL RBC 3.60 L (4.2-5.4) M/uL Hgb 9.1 L (12.0-16.0) g/dL Hct 29.5 L (37-47) % MCV 81.9 (80-100) fL MCH 25.3 (25-34) pg MCHC 30.8 L (32-36) g/dL RDW Std Deviation 52.9 H (36.4-46.3) fL RDW Coeff of Juanpablo 17.6 H (11.5-14.5) % Plt Count 359 (130-400) K/uL MPV 9.3 (7.4-10.4) fL Sodium 142 (136-145) mmol/L Potassium 3.9 (3.5-5.1) mmol/L Chloride 109 H (98-107) mmol/L Carbon Dioxide 28 (21-32) mmol/L Anion Gap 5.0 (3-11) BUN 19 H D (7-18) mg/dl Creatinine 1.72 H (0.6-1.2) mg/dl Est Cr Clr Drug Dosing 46.3 ml/min Est GFR ( Amer) 38.1 Est GFR (Non-Af Amer) 32.9 BUN/Creatinine Ratio 11.2 (10-20) Glucose 116 H (70-99) mg/dl Calcium 7.2 L (8.5-10.1) mg/dl Phosphorus 4.9 (2.5-4.9) mg/dl Total Bilirubin 0.3 (0.2-1) mg/dl Direct Bilirubin Pending (0-0.2) mg/dl GGT AST 43 H (15-37) U/L ALT 47 (12-78) U/L Alkaline Phosphatase 304 H (45-117) U/L C-Reactive Protein 9.02 H (0-0.29) mg/dl Total Protein 6.6 (6.4-8.2) gm/dl Albumin 1.8 L (3.4-5.0) gm/dl Specimen Hemolysis 11/27/20 Range/Units 05:17 WBC (4.8-10.8) K/uL RBC (4.2-5.4) M/uL Hgb (12.0-16.0) g/dL Hct (37-47) % MCV (80-100) fL MCH (25-34) pg MCHC (32-36) g/dL RDW Std Deviation (36.4-46.3) fL RDW Coeff of Juanpablo (11.5-14.5) % Plt Count (130-400) K/uL MPV (7.4-10.4) fL Sodium (136-145) mmol/L Potassium (3.5-5.1) mmol/L Chloride (98-107) mmol/L Carbon Dioxide (21-32) mmol/L Anion Gap (3-11) BUN (7-18) mg/dl Creatinine (0.6-1.2) mg/dl Est Cr Clr Drug Dosing ml/min Est GFR ( Amer) Est GFR (Non-Af Amer) BUN/Creatinine Ratio (10-20) Glucose (70-99) mg/dl Calcium (8.5-10.1) mg/dl Phosphorus (2.5-4.9) mg/dl Total Bilirubin (0.2-1) mg/dl Direct Bilirubin (0-0.2) mg/dl GGT Pending AST (15-37) U/L ALT (12-78) U/L Alkaline Phosphatase (45-117) U/L C-Reactive Protein (0-0.29) mg/dl Total Protein (6.4-8.2) gm/dl Albumin (3.4-5.0) gm/dl Specimen Hemolysis PG Care Time/CCT Total # of Minutes Spent Total Time Spent with Patient: Total time spent is greater than 50% in coordination of care (as documented) at patient's floor/unit and/or counseling patient: Coding
[2020-11-27] MEDS: CALCITRIOL 0.25 MCG CAPSULE PO SCH (10:12)
[2020-11-27] MEDS: FAMOTIDINE 20 MG in SYRINGE 3 ML IV SCH (10:12)
--- NOTE | 2020-11-27 12:03 | Discharge Summary ---
Date of Service November 27, 2020 Admission HPI Per Admitting Provider 55 yo female with history of sigmoid diverticulitis, has a serious bout in 2019 that put her in the hospital. She has had minor bouts as well that have not been that severe. On colonoscopy she has known diverticular disease and she follows with Vianey SHAH and Dr. Morton with [facility]. She was recently referred to [facility] colorectal surgery for evaluation of elective sigmoidectomy. There has been a question of possible fistula developing between colon and adjacent small bowel. It was recommended that she proceed with surgery and she was planning on scheduling the surgery and then she started to get LLQ pain. The pain started on 11/20/20. She has moved her bowels, no blood. She had some nausea but no vomiting. She has been trying to drink liquids but poor appetite. She has had a low grade temperature with periodic diaphoresis whenever she takes Tylenol for her pain. She has been sleeping all weekend, very weak. The pain was not improving and she assumed she had diverticulitis so she came to the ED for evaluation. CT shows acute sigmoid diverticulitis but there is no abscess or fluid to drain. WBC 14k, tachycardia and BP low normal on admission. K low at 3.0 and K is 1.9, up from baseline. She says her pain is better after Fentanyl IV in the ED and she received a 1L saline bolus and a dose of Zosyn IV. Admission Exam Per Admitting Provider Constitutional: WD/WN, vitals as above + overweight; no acute distress and + uncomfortable Eyes: PERRL, conjunctivae normal, anicteric sclerae ENMT: external ear and nose normal, oropharynx normal Neck: trachea midline, no thyromegaly Respiratory: normal respiratory effort, lungs clear to auscultation Cardiovascular: Rate/Rhythm: regular rate and regular rhythm Heart Sounds: normal S1 and normal S2; no murmur Vessels: no JVD Extremities: normal capillary refill and + edema (lymphedema) Gastrointestinal (Abdomen): Inspection/Auscultation: normal bowel sounds; abdomen not distended Percussion/Palpation: + abdomen tender (LLQ), abdomen soft and + tympanic to percussion; no guarding, abdomen not rigid and no ascites Musculoskeletal: no cyanosis or clubbing, extremities motor strength 5/5 Skin: no rashes, warm and dry Neurologic: patellar DTR's 2+ bilat, sensation intact and PERRL, EOMI, accommodation nl, no face palsy, no dysarthria Psychiatric: A+Ox3, euthymic affect Lymphatic: + lymphedema; no lymphadenopathy Principal Diagnosis Diverticulitis, Bacteremia Discharge Exam Constitutional WD/WN, vitals as above + morbidly obese, cooperative and comfortable; no acute distress (sitting up in chair at window, general pallor (improved)) Eyes + anicteric sclerae and PERRL ENMT Ears: no hearing impairment and no external ear abnormality Neck trachea midline; no tracheal deviation Respiratory normal respiratory effort; no respiratory distress, no labored breathing, does not use accessory muscles and no cough Auscultation: + diminished lung sounds; no crackles and no wheezes Cardiovascular Rate/Rhythm: regular rate and regular rhythm Heart Sounds: normal S1 and normal S2; no murmur Vessels: no JVD Extremities: normal capillary refill and + edema (lymphedema, at baseline) Gastrointestinal (Abdomen) Inspection/Auscultation: normal bowel sounds; abdomen not distended Percussion/Palpation: abdomen soft; abdomen nontender, no guarding, abdomen not rigid and no ascites Musculoskeletal no cyanosis or clubbing, extremities motor strength 5/5 Skin no rashes, warm and dry Neurologic patellar DTR's 2+ bilat, sensation intact and PERRL, EOMI, accommodation nl, no face palsy, no dysarthria Psychiatric Orientation: alert and oriented x 3 Lymphatic + lymphedema; no lymphadenopathy Discharge Data Allergies Allergy/AdvReac Type Severity Reaction Status Date / Time metronidazole Allergy Unknown Vomiting Verified 11/12/20 11:14 Consultations 11/22/20 07:29 ED Decision to Admit Stat 11/24/20 14:34 Consult Infectious Diseases Routine 11/25/20 09:28 Consult Gastroenterology Routine 11/25/20 16:29 Consult Anesthesiology Routine Procedures Performed Operation Date: 11/26/20 14:00 Actual Procedures p Echo Transesophageal - Med Medina MD s Echo Color Flow - Med Medina MD Ordered Studies 11/22/20 04:43 CT abd pelvis wo con Urgent 11/25/20 13:56 US gallbladder Routine ECHO 11/26 DEBRA Hospital Course (1) Sigmoid diverticulitis: Sepsis POA -- acute LLQ pain, WBC 14k, tachycardia CT a/p with evidence of acute sigmoid diverticulitis Continued IV Zosyn while inpatient Blood cultures from admission with strep intermedius ID consulted -- rec 14 days Augmentin from last negative culture at discharge if DEBRA negative (performed and no evidence of vegetation as initial TTE unable to r/o) --> sent at discharge. Unable to tolerate Flagyl Treated with IVF and electrolyte replacement as needed (see below regarding hypocalcemia) WBC 14k on admission --> 7.98k CRP checked later on 11/26 at 11 and trended down on repeat Advanced diet to low fat/low fiber and to continue for next 2 weeks Seen by GI during admission and recs to f/u with Nataliyashelli Irizarry for elective sigmoidectomy Alk phos did trend up during admission, suspected GI tract related to current il lness. LDH elevated as well and GGT pending at time of discharge Given slips for repeat CBC/CMP on monday to monitor anemia/kidney function/hypocalcemia To increase protein intake Discharged home and will need close follow up in December with Dr. Irizarry as already planned in follow up Continue electrolyte replacement as needed --> gave 1gm IV calcium gluconate today for Ca 7, correct 8.4. Continuing calcitriol and would benefit from oral Vit D supplementation for level 12.7 --> As mentioned will confer with Nephrology as patient with 1 kidney secondary to renal ca s/p nephrectomy TTE not great quality but no vegetations seen ID consulted DEBRA negative To follow up with Dr. Irizarry from [facility] for sigmoidectomy --> to be seen in December. Previously was just contemplating but at this point, strongly encouraged procedure at this time (2) Sepsis: mild sepsis POA with WBC 14k, tachycardic, temp 37.6. No evidence of shock treatment as above with improvements and tolerating low fat/low fiber diet prior to discharge. WBC wnl and afebrile (3) Hypokalemia: Low on multiple draws -- replacement with PO and placed in IV Repeat continues to be stable on multiple lab draws -- suspect lack of PO intake from admission/NPO status at times follow closely as outpt (4) Acute kidney injury: Baseline Cr 1.5-1.7 typically. Max 1.96 during admission. IVF as above Follows with Dr. Gauthier for CKD III -- patient with surgically absent L kidney d/t renal Ca Avoided NSAIDs/nephrotoxic drugs when able. Held PPI and utilized Pepcid IV BID while inpatient. Cr 1.72 prior to discharge and will have repeat labs on Monday as above (5) Chronic kidney disease, stage III (moderate): see above -- also with absent L kidney due to renal CA -- follows with Dr. Gauthier. Of note, also with hypocalcemia/vitamin D deficiency but states she has not been on replacement for years. Resumed torsemide at discharge Patient with history of Vit D deficiency however has not been on supplementation in several years per her account Vit D low 12.7, Ca low and replacement with corrected wnl at discharge, PTH inappropriately low --> hx thyroidectomy with para tissue still intact Suspect hypocalcemia secondary to some degree of hypoparathyroidism and will need f/u with Dr. Soto outpatient --> Placed on Ca-carb, calcitriol, and 50,000IU ergocalciferol weekly at discharge Labs on Monday as above (6) Hypertension: Controlled -- BP 122/81 prior to discharge and had resumed usual torsemide (7) Vitamin D deficiency: Low at 28 August 2020 -- not on replacement currently but would discuss with patient prior to d/c and possible start. She states she had been on replacement in the past but has not been on for years Repeat 12.7 low--> ordered calcitriol and several gm IV calcium during admission but was also placed on lester-carb BID and 50,000 IU ergocaciferol weekly at discharge Repeating CMP on Monday To follow up with Dr. Soto (8) GERD (gastroesophageal reflux disease): change to Protonix 40mg PO daily while inpatient (on hold as above and on pepcid BID) --> resumed home PPI at discharge (9) Post-surgical hypothyroidism: for hx papillary thyroid ca TSH last elevated but no FT4 --> repeat TSH wnl at 2.79 Continued pork thyroid 90 + 15mg daily for total 105mg daily See above --> Will need f/u with Brittany for hypoparathyroidism secondary to surgical resection for papillary thyroid ca. PTH inappropriately low, suspect hypoparathyroidism given hypocalcemia in patient with CKD Supplementation for calcium as above (10) Bacteremia: +Bcx as above Repeat pending -- negative since 11/23 (11) DVT prophylaxis: heparin 7500 q8 while inpatient Anemia * MCV low normal at 81.3 and added iron studies * Ferritin elevated, likely reactive however iron low at 27 * Checked fecal occult for completeness -- NEGATIVE * TIBC low 150, transferrin 110L c/w anemia of chronic disease however may benefit from some supplementation given likely poor absorption with GI issues? * Since blood cultures negative, was given dose of IV Venofer and started daily PO supplementation --> repeat h/h 9.29.5 * Just had colonoscopy earlier in month, poor prep reported --> to follow up with Dr. Irizarry for sigmoidectomy * Labs on Monday with cmp as above Elevated alk phos * Could be some volume overload although appeared euvolemic on examination. IVF since decreased * Alk phos further elevated to 270 but decreased from 289 (142 on admission) - could be from GI tract, fatty liver, but normal GB on initial CT imaging * ?Hepatic congestion from elevated weights? Stable on RA. No edema. No abd fullness * Torsemide resumed as above * GGT pending * INR wnl * Fatty liver on imaging but will add Hep panel to AM labs --> NEGATIVE * RUQ US ordered -- upper limits normal wall thickening, adenomyomatosis but no acute yelitza or obstructing stones/ductal dilatation * Suspect from GI and repeating labs on Monday. No abd pain. No phil abn noted on imaging Discharged home (12) Anemia: (13) Elevated alkaline phosphatase level: Total Time Total Time Spent Total Time Spent (In Minutes): 95 Discharge Plan Discharge Items Patient Disposition: Home - Self-Care Reason For Visit: DIVERTICULITIS Discharge Diagnosis: Diverticulitis, Bacteremia Goals: You have been hospitalized for an acute medical problem. During your stay at [facility], we have made an effort to correct the problem that brought you to the hospital while keeping you as comfortable as possible. Medications were used to bring your condition under control and your discharge instructions will include directions for any medications you should take after leaving the hospital. Please make sure you see your Primary Care Provider as part of your follow up plan. Activity: Resume your previous activity Non-emergency contact: Primary Care Provider, Surgeon, Specialist, Stage Hand and Cable Weaver Call non-emergency contact if: you have any medication questions, your symptoms worsen and your pain is not controlled Follow-up/Referrals: Paolo Gauthier MD [Physician] - 01/01/21 12:30 pm (1 month) Kev Soto MD [Physician] - 01/06/21 9:15 am (1 month) Nitesh Singh MD [Primary Care Provider] - Diet: Heart Healthy, Low Fiber and Low Fat Ambulatory Orders: Complete Blood Count with Diff (Timed) Timeframe: 3 Days Location: Determined by Patient Ordered By: Isabell Pavon Comprehensive Metabolic Panel (Routine) Timeframe: 3 Days Location: Determined by Patient Ordered By: Isabell Pavon Addtl Attending Provider Instructions: You have been hospitalized for abdominal pain and found to have diverticulitis. You were treated with IV fluids and antibiotics and GI and infectious disease was consulted due to positive blood cultures. Imaging of your heart did not show evidence of vegetations and decision for 2 weeks of antibiotics from last negative blood cultures which were on 11/23 have been selected based on this information. Of note, repeat blood cultures have been negative on two separate lab draws. You have been on IV until today and have an additional 10 days. This antibiotic is taken twice daily and please note does sometimes cause abdominal discomfort/upset. Your calcium was low during admission and your PTH was checked which was inappropriately low. Review of Dr. Mendoza notes show some parathyroid tissue intact but likely you have some underlying hypocalcemia from hypoparathyroidism and have been started on supplementation for this as well as low Vitamin D. You have also been found to have anemia with low iron and have been started on supplementation. Please note this can cause your stools to darken and can cause constipation. You may take OTC stool softeners as needed to help with this if this occurs. It can also cause some GI upset as well, please be aware. You will need to have follow up with Dr Soto for further management and should also follow up with Dr. Gauthier from Nephrology for routine management/care. You have been provided slip for repeat labs on Monday to ensure kidney function is stable and liver function testing have improved. This is likey from GI source as discussed and send out labs still pending for confirmation. Ultrasound of your gallbladder did not show any evidence of infection/acute ch olecystitis. You should continue on a low fat/low fiber diet for the next two weeks. Please wait until seen by PCP to return back to work. Note has been provided. Please follow up with Dr. Irizarry about scheduling a sigmoidectomy as previously to follow up in December given your repeat episodes and reduce risk of recurrence and complications given you history of perforation, which was not noted while a dmitted. Please return to the emergency department with any fever, increased pain, shortness of breath, or for any other symptoms that are concerning for you. Pending Studies at Discharge: Yes Studies:: GGT Blood cultures -- no growth to date Stand-Alone Forms: My [facility], Work/School Release (Inpt) Medications and DC Order Prescriptions: New ferrous sulfate 325 mg (65 mg iron) Tablet,Delayed Release (Dr/Ec) 325 mg PO QAM Qty: 30 RF: 0 amoxicillin-pot clavulanate [Augmentin] 875-125 mg Tablet 1 tab PO BIDM Qty: 20 RF: 0 ergocalciferol (vitamin D2) 1,250 mcg (50,000 unit) Capsule 50,000 unit PO Q7D@0900 Qty: 4 RF: 0 calcitriol 0.25 mcg Capsule 0.25 mcg PO QAM Qty: 30 RF: 0 Caltrate 600-D Plus Minerals 600 mg calcium- 800 unit-50 mg Tablet 1 tab PO BID Qty: 60 RF: 0 Continued torsemide 10 mg tablet 10 mg PO QAM Qty: 90 RF: 3 thyroid (pork) [[place] Thyroid] 15 mg tablet 15 mg PO DAILY Qty: 90 RF: 3 Prilosec OTC 20 mg tablet,delayed release (DR/EC) 20 mg PO QPM RF: 0 acetaminophen 500 mg capsule 1,000 mg PO UD PRN (Reason: Fever Or Pain) RF: 0 Probiotic 3 billion cell Capsule 3,000 mmu cells PO QDL RF: 0 thyroid (pork) [[place] Thyroid] 90 mg tablet 90 mg PO QAM RF: 0 Systane (PF) 0.4-0.3 % Dropperette 1 drp OPHTHALMIC (EYE) BID RF: 0 Discharge Orders: Discharge Order (Routine); Ordered 11/27/20 Ordered By: Isabell Zambrano/Other Patient Handouts: Amoxicillin Clavulanic Acid tablets Admission Data Admit Date/Time: 11/22/20 07:28 Attending Provider: Azra Guerrero Admit Provider: Chapo Ordonez Primary Care Provider: Nitesh Singh V. Other Providers: Chapo Ordonez ; Phillip Martin ; Umer Toney ; Honorio Posey I. ; Chuck Bravo II ; Renetta Hidalgo ; Antony Castellon ; Carlos Morton ; Elisabeth Templeton ; Sheila Caballero ; Rakel Camarillo ; Mary Sharp ; Divya Hammond ; Quiana Bassett ; Eric Garza ; Preston Guillen ; Tristan Almeida ; Holland Vaughn ; Mercedes Vaughn ; Masoud Finley ; Carol Schmidt ; Alek Ni ; Aaron Tan ; Junior Ramirez ; Jose Goodman ; Rashida Castillo ; Antony Altman ; Radha Elena ; Isabell Altman ; Mark Aj ; Pat Melgoza ; Sj Larios. ; Lety Colindres ; Marii Quinones ; Pat Lomas ; Cassie Ordonez ; Blayne Milian ; Kelsy Sandra ; Lucy James ; Olga Baker ; La Nena Chávez A ; Juanjo Chávez V ; Riki Tracy ; Rakel Serrano ; Michele Navarro ; Lei Magallanes ; Chery Peters ; Ermelinda Wagner ; Juanjo Adams ; Sherman Castillo ; Chapo Peters ; Naye Rocha ; Olga Gomez ; Yomi Robles ; Miguealngel Goodman ; Lacey Etienne ; Med Ackerman ; Tacho Lee ; Damien Adams ; Deon Fowler Other Interventions: Discharge Summary Assessment (RN) Last Done: 11/27/20 12:40 Supervising Physician Co-Signing Physician Notes PA Supervision Note: I personally saw and examined the patient. I verified all sibley points and agree with ALYSSA Pavon with the following exceptions and/or additions: Pt feelin gmuch better, no abd pain. Repeat BCxs remain NGTD. Afebrile, nikko po. She will f/u for repeat labs on Monday and f/uw ith Colorectal Surgeon as scheduled in 2 weeks. Vitals reviewed Morbidly obese, AAOx3, NAD Anicteric sclerae RRR no mgr CTAB no wcr Abd +BS soft NT ND obese Ext +lymphedema 55 yo female here with recurrent sigmoid diverticulitis and associated Strep i ntermedius bacteremia. With worsening anemia, lyte abnormalities--> needs close f/u on labs, CBC, Renal function, lytes,a nd seen by Colorectal Surgery Stable for dc to home on Augmentin as per ID recs as DEBRA neg for vegetation Coding Level of Care Code D/C Day Management >30 mins Diagnoses Sigmoid diverticulitis K57.32 Sepsis A41.9 Sepsis acute organ dysfunction status: unspecified Sepsis type: sepsis due to unspecified organism Hypokalemia E87.6 Acute kidney injury N17.9 Chronic kidney disease, stage III (moderate) N18.3 Hypertension I10 Vitamin D deficiency E55.9 GERD (gastroesophageal reflux disease) K21.9 Esophagitis presence: without esophagitis Post-surgical hypothyroidism E89.0 Bacteremia R78.81 DVT prophylaxis Z29.9 Anemia D64.9 Elevated alkaline phosphatase level R74.8
[2020-11-27] MEDS ORDERED: AMOXICILLIN/CLAVULANATE 875 MG TAB PO SCH (17:00)
--- NOTE | 2020-12-02 14:20 | Coding Query ---
CODING QUERY To promote full compliance with coding requirements relating to patient care, provider participation is requested in all cases of golf club manager uncertainty. Please assist us with the question(s) below: Coding Question(s): Sepsis is documented in the record as well as Bacteremia and the Discharge Summary documents Bacteremia in the Principal Diagnosis and Supervising Physician documentation, however, there is documentation under the Hospital Course of Sepsis POA. Please Specify below, in your clinical opinion, regarding Sepsis. ( x ) Sepsis POA. Please specify the source of Sepsis below: (x ) source is likely Sigmoid Diverticulitis ( ) source is likely Other: Please Specify ( ) source is Unknown likely etiology ( ) Sepsis is Ruled-out and there is only Bacteremia. Please specify the source of Bacteremia below: ( ) source is likely Sigmoid Diverticulitis ( ) source is likely Other: Please Specify ( ) source is Unknown likely etiology ( ) Other: Please Specify Physician's Response(s): Thank you Uma Redmond Principal Diagnosis: "that condition established after study, to be chiefly responsible for occasioning the admission of the patient to the hospital for care." Co-Existing Principal Diagnosis: "when two or more diagnoses equally meet the criteria for principal diagnosis as determined by the circumstances of admission, diagnostic work up, and/or therapy provided, and the Alphabetic Index, Tabular List, or another coding guideline does not provide sequencing direction, any one of the diagnoses may be sequenced first." "When the physician has documented what appears to be a current diagnosis in the body of the record, but has not included the diagnosis in the final diagnostic statement, the physician should be asked whether the diagnosis should be added." ([facility]oding [facility] 2 QTR90. p3-4) CELSO
== END 2020-11-27 14:29 | disposition home or self-care (01) | DRG 872 ==
LOC: ED 04:31 → 3N 07:28 → SUATTDRO 07:28 → 3N 09:03